=== PATIENT | female | born 1980 | race Caucasian/White ===

== ENCOUNTER 2019-01-25 11:03 | Emergency (ER) | payer BC, SELFPAY ==
[2019-01-25 11:03] VITALS: BP 136/90; PULSE 83; RESP 16; TEMP 36.6; O2SAT 98; BMI 19.3
--- NOTE | 2019-01-25 11:10 | RAD_ITS ---
STUDY: X-RAY CHEST REASON FOR EXAM: Female, 38 years old. Intermittent sharp stabbing sternal chest pain. TECHNIQUE: Single frontal view of the chest. COMPARISON: August 25, 2015 FINDINGS: Stable hyperexpansion. There is no demonstrated pleural abnormality. Normal size heart. Normal mediastinum and josie. Normal visualized pulmonary arteries. Normal visualized aortic arch and descending thoracic aorta. Normal visualized thoracic spine. Normal visualized ribs, clavicles, and shoulders. There is no demonstrated abnormality of the visualized soft tissue structures of the upper abdomen. RAD/Chest 1 View (Portable) IMPRESSION: Stable hyperexpansion with no acute finding. Electronically Signed: Jose C Galindo MD at 11:39 EDT , Service support ,
--- NOTE | 2019-01-25 11:10 | EKG12_ITS ---
Test Reason : CP Blood Pressure : / mmHG Vent. Rate : 067 BPM Atrial Rate : 067 BPM P-R Int : 176 ms QRS Dur : 082 ms QT Int : 356 ms P-R-T Axes : 046 078 042 degrees QTc Int : 376 ms Normal sinus rhythm with sinus arrhythmia Normal ECG Confirmed by DAREK LEVY ([id number]), electronic news gathering editor ZOEY RUSSELL ([id number]) on 01/26/2019 1:40:01 PM Referred By: TREE Confirmed By:DAREK LEVY
[2019-01-25 11:35] LABS: Absolute Lymphocyte Count 2.53 X10^3/ul (0.83-4.51); Absolute Neutrophil Count 4.8 X10^3/uL (2.0-7.7); Basophil# 0.05 X10^3/uL; Basophil% 0.6 % (0-1); Eosinophils% 1.2 % (0-5); Hematocrit 43.2 % (37-47); Hemoglobin 14.3 g/dl (12.0-15.0); Lymphocyte # 2.53 X10^3/ul (4.0); Lymphocyte % 31.5 % (19-41); Mean Corp Hgb Conc 33.1 g/gl (32-36); Mean Corpuscular Hgb 29.2 pg (27.0-32.0); Mean Corpuscular Volume 88.3 fL (81-99); Mean Platelet Vol. 10.5 fl (6.2-12.0); Monocyte% 6.2 % (0-10); Neutrophil # 4.83 X10^3/uL (2.7-7.7); Neutrophil % 60.4 % (47-70); Platelet Count 342 K/mm3 (150-450); RBC Distribution Width CV 13.2 % (11.6-14.6); RBC Distribution Width SD 42.2 fl (35.1-43.9); Red Blood Count 4.89 M/mm3 (4.2-5.4)
[2019-01-25 11:39] LABS: Anion Gap 4 (5-15); BUN 15 mg/dL (7-18); BUN/Creat Ratio 18.5 RATIO (10-20); Calcium,Total 9.2 mg/dL (8.5-10.1); Chloride 106 mmol/L (98-107); Creatinine, Serum 0.81 mg/dL (0.55-1.02); EST Glomerular Filtration Rate 83 mL/min (>60); Est Glom Filt Rate - Afr Amer 101 mL/min (>60); Estimated Creatinine Clearance 76.95 ml/min; Glucose 108 mg/dL (74-106); POSITIVE COUNT NO; POSITIVE DIFFERENTIAL NO; POSITIVE MORPHOLOGY NO; Potassium 3.9 mmol/L (3.5-5.1); Sodium Level 137 mmol/L (136-145)
[2019-01-25] MEDS: Aspirin 81 MG TAB.CHEW 324 MG PO (11:41)
[2019-01-25 11:42] VITALS: O2SAT 99
[2019-01-25 12:04] VITALS: BP 110/59; PULSE 58; RESP 16; O2SAT 99
--- NOTE | 2019-01-25 12:37 | ED.DCSUM_ITS ---
- ER Visit Summary Date of Service: 01/25/19 Chief Complaint: Chest pain History of Present Illness: The patient is a 38 F is here past medical history. She is hysterectomy. States for the last 2 weeks she is having episodes where she had indigestion. She has heartburn. She states that one time it radiated to her left arm. Is not associated with exertion.. She has no dyspnea or nausea. No diaphoresis. Never had underlying cardiac disease. She states she had a negative stress test about 4 years ago. She denies any history of ear PE. No recent travel or surgery. No leg pain or swelling. Pain is not pleuritic. She has no history of hemoptysis. Her dad had an DE she believes before the age of 60 and may be possibly before the age of 55. Family history of clotting disorder or PEs. Physical Examination: Female no acute distress. Currently pain-free symptom- free. Vital signs are 90% on room air Hypoxia. HEENT exam unremarkable. Neck nontender no lymphadenopathy. Lungs clear to auscultation bilaterally. No rales rhonchi or wheezing. Chest wall nontender. Heart regular rate and rhythm no murmur rate about 70. Abdomen is soft and nontender no masses no peritoneal signs. Extremities moves all 4. Equal symmetric radial pulses. Calves are nontender without edema or cords. Neurologically she is awake and alert with no focal motor deficits. Back is unremarkable. Skin is unremarkable. Test Results: CBC normal. Chemistries normal. Troponin normal. EKG sinus rhythm rate of 67 no acute signs of DE or ischemia. Unchanged from prior EKG from 2016. Chest x-ray normal as read by myself the radiologist with normal cardiac silhouette and mediastinum. Emergency Department Course and Treatment: Repeat exam the patient is doing well at 1221. She denies any complaints. Currently she is symptom-free. She has discussed all of her test results and our test being normal. Discussed with her admission with inpatient stress testing versus outpatient. She does not want to be admitted. She is comfortable with outpatient follow-up with her primary care physician and outpatient stress testing. Treatment Plan: Follow-up with primary care physician for consideration of outpatient stress testing. Disposition: Discharge Impression: Acute atypical chest pain of uncertain etiology This note was generated with [employer] dictation software. It may contain incorrect words, spelling, and punctuation that were not noted in review of the chart prior to signing ED Disposition - Plan for ED Patient: Referrals: Misha Longoria III, MD [Primary Care Provider] -
--- NOTE | 2019-01-25 12:40 | ED.DEP ---
ED Disposition - Plan for ED Patient: Disposition: Home or Assisted Living Instructions: CHEST PAIN, Uncertain Cause Referrals: Misha Longoria III, MD [Primary Care Provider] - As soon as possible Additional Instructions: Follow-up your primary care physician to be set up for an outpatient stress test as soon as possible. Return for feeling worse such as increasing pain or shortness of breath.
[2019-01-25 12:45] VITALS: BP 111/72; PULSE 64; RESP 15; O2SAT 99
== END 2019-01-25 12:45 | disposition home or self-care (01) ==
PROVIDERS: Emergency Provider Emergency Medicine; Family Provider Family Medicine; PCP Family Medicine
DX: R07.89 Other chest pain (principal); R12 Heartburn; Z72.0 Tobacco use; Z90.710 Acquired absence of both cervix and uterus
CPT/HCPCS: 71045; 80048; 84484; 85025; 93005; 99285

== ENCOUNTER → 2019-02-10 08:01 | Outpatient (CLI) | payer BC, SELFPAY ==
[2019-01-25 11:03] VITALS: BMI 19.3
--- NOTE | 2019-02-10 08:03 | BI_ITS ---
MAMMOGRAPHY - BILATERAL SCREENING REASON FOR EXAM: Female, 38 years old. Routine annual screening examination. PERTINENT HISTORY: Non-contributory. TECHNIQUE: Digital bilateral breast tiffanie (3D mammographic acquisition) in the CC and MLO projections. 2-D mediolateral oblique (MLO) and craniocaudad (CC) views of both breasts were obtained. CAD: Full Field Digital Mammography with Computer Added Detection was performed. COMPARISON: Comparison is made with prior operative examination dated March 11, 2017. FINDINGS: Breast Composition: The breasts are heterogeneously dense, which may obscure small masses. There are no dominant masses or suspicious calcifications. A tissue clip marker is seen in the inferior medial portion of the left breast and a small well-defined nodule. No other significant abnormalities are identified. There has been no significant change since the prior study. BI/SCREEN MAMM (CAD) W/TIFFANIE BILAT IMPRESSION: Stable bilateral screening mammogram. Yearly follow-up mammogram recommended. (A) ASSESSMENT CATEGORY: BIRADS Category 2: Benign. A letter regarding these results will be sent to the patient by the facility within 30 days. Approximately 10% of breast cancers are not detected by mammography. A normal mammogram should not delay biopsy of a clinically suspicious abnormality. [id number] Electronically Signed: Ortiz Borja, at 9:22 EDT , Service support ,
== END ==
PROVIDERS: Family Provider Family Medicine; PCP Family Medicine; Referring Provider Obstetrics & Gynecology; Visit Provider Obstetrics & Gynecology
DX: Z12.31 Encounter for screening mammogram for malignant neoplasm of breast (principal)
CPT/HCPCS: 77063; 77067

== ENCOUNTER → 2020-02-23 | Outpatient (CLI) | payer BC, SELFPAY | END | disposition home or self-care (01) | LOC: LABSPEC 02-27 07:33 | PROVIDERS: PCP Family Medicine; Referring Provider Nurse Practitioner; Visit Provider Nurse Practitioner | DX: Z20.828 Contact with and (suspected) exposure to other viral communicable diseases (principal) | CPT/HCPCS: 87635; G2023; U0003 ==

== ENCOUNTER → 2020-04-06 11:58 | Outpatient (CLI) | payer BC, SELFPAY ==
--- NOTE | 2020-04-06 12:00 | BI_ITS ---
MAMMOGRAPHY - BILATERAL SCREENING REASON FOR EXAM: Female, 39 years old. Routine annual screening examination. PERTINENT HISTORY: Non-contributory. TECHNIQUE: Digital bilateral breast tiffanie (3D mammographic acquisition) in the CC and MLO projections. 2-D mediolateral oblique (MLO) and craniocaudad (CC) views of both breasts were obtained. CAD: Full Field Digital Mammography with Computer Added Detection was performed. COMPARISON: Comparison is made with prior study dated 02/10/2019. FINDINGS: Breast Composition: The breasts are extremely dense, which lowers the sensitivity of mammography. There are no dominant masses or suspicious calcifications. A tissue clip marker is once again seen in the inferior medial aspect of the left breast. No other significant abnormalities are identified. There has been no significant change since the prior study. BI/SCREEN MAMM (CAD) W/TIFFANIE BILAT IMPRESSION: Stable bilateral screening mammogram. Yearly follow-up mammogram recommended. (A) ASSESSMENT CATEGORY: BIRADS Category 2: Benign. A letter regarding these results will be sent to the patient by the facility within 30 days. Approximately 10% of breast cancers are not detected by mammography. A normal mammogram should not delay biopsy of a clinically suspicious abnormality. [id number] Electronically Signed: Ortiz Borja, at 12:59 EDT , Service support ,
== END ==
PROVIDERS: PCP Family Medicine; Referring Provider Family Medicine; Visit Provider Family Medicine
DX: Z12.31 Encounter for screening mammogram for malignant neoplasm of breast (principal)
CPT/HCPCS: 77063; 77067

== ENCOUNTER 2020-06-22 14:40 | Emergency (ER) | payer BC, SELFPAY ==
[2020-06-22 14:41] VITALS: BP 135/86; PULSE 77; RESP 16; TEMP 36.2; O2SAT 100; BMI 22.4
--- NOTE | 2020-06-22 15:36 | CT_ITS ---
STUDY: CT ABDOMEN AND PELVIS WITHOUT CONTRAST REASON FOR EXAM: Female, 40 years old. RIGHT FLANK PAIN X MONTHS. WORSE LAST COUPLE OF DAYS. RADIATION DOSAGE (If Supplied By Facility): CTDIvol = ( 6.47 ) mGy, DLP = ( 278.65 ) mGycm TECHNIQUE: Transaxial images were obtained from the dome of the diaphragm to the symphysis pubis without oral contrast, and without intravenous contrast. Sagittal and coronal images were reconstructed. Individualized dose optimization techniques were used for this CT. COMPARISON: 11/16/2014 FINDINGS: The visualized lung bases are unremarkable. The visualized portions of the heart are within normal limits. Normal liver. There are surgical clips in the gallbladder fossa consistent with a prior cholecystectomy. Normal spleen. Normal pancreas. Normal bilateral adrenal glands. Normal right kidney. Normal left kidney. Normal visualized stomach. Normal small intestine. Normal colon. There are surgical clips in the region of the appendix consistent with a prior appendectomy. Normal abdominal aorta. Normal inferior vena cava. Normal retroperitoneum. Normal urinary bladder. Normal abdominal wall. Normal osseous structures. CT/Abdomen/Pelvis without Cont IMPRESSION: Normal unenhanced CT of the abdomen and pelvis. No renal or ureteral stone. Electronically Signed: Philippe Santiago MD at 16:51 EST Tel , Service support ,
--- NOTE | 2020-06-22 15:36 | ED.VIS.GI ---
History of Present Illness Chief Complaint: Flank Pain Informant: Patient - Abdominal Pain/Flank Pain Onset: Yesterday Context: Sudden Onset Timing: Continuous Quality: Aching Location: Right Flank - more in back, sometimes feels in side; no abd/groin pain Current Severity: Mild Maximum Severity: Severe Worsened by: Movement Relieved by: - - NSAIDs, last dose 2 hrs ago - Nausea/Vomiting/Emesis GI Symptom: Nausea, Vomiting Onset: Today Quality: Nonbilious Episodes: 1 - Diarrhea/Melena/Hematochezia GI Symptom: Negative for: Diarrhea, Melena, Hematochezia Associated Symptoms: Negative for: Dysuria, Frequency, Hematuria, Urgency Narrative: Also had an episode similar to this about a month ago, but it went away. Came back yesterday and has been significant. Never had this before otherwise. Denies any urinary symptoms. Discomfort is nonpleuritic, she denies any cough or shortness of breath. - Past Medical History (1) History of hidradenitis suppurativa Status: Chronic Comment: right axillary hidradenitis Past Medical History - Allergies and Home Meds Allergies/Adverse Reactions: Allergies ketorolac tromethamine [From Toradol] Allergy (Verified 06/22/20 14:43) Hives tramadol HCl [From Ultram] Allergy (Verified 06/22/20 14:43) Hives naproxen Adverse Reaction (Verified 06/22/20 14:43) Vomiting Primary Care Physician: Misha Longoria III, MD [Primary Care Provider] - Surgical History: appendectomy, cholecystectomy, herniorrhaphy, hysterectomy, - - Right axillary surgery secondary to infection Lives: Spouse/ Significant Other Smoking Status: Current every day smoker Drugs: - - History of oral opioid abuse in the past Review of Systems General: Denies: Chills, Fever, Sweats Eyes: Denies: Visual changes - bilaterally, Diplopia ENT: Denies: Rhinorrhea, Sore throat Cardiovascular: Denies: Chest pain, Palpitations Respiratory: Denies: Dyspnea, Cough, Dyspnea on exertion Gastrointestinal: Reports: Nausea, Vomiting. Denies: Abdominal pain, Diarrhea, Melena, Hematochezia Genitourinary: Denies: Dysuria, Hematuria, Frequency Musculoskeletal: Reports: Back pain. Denies: Myalgias, Extremity Pain Skin: Denies: Rash, Wounds Neurological: Denies: Headache, Weakness, Numbness Physical Exam Vital Signs/Narrative: Vital Signs Temp Pulse Resp BP Pulse Ox 06/22/20 14:41 97.2 F L 77 16 135/86 H 100 Inital Vital Signs reviewed: Yes General: Well nourished, Well developed, No Acute Distress Head: Normocephalic, Atraumatic Eyes: Perrl, EOMI ENT: Moist mucous membranes, No rhinorrhea Neck: Supple, Nontender Cardiovascular: Regular rate, Regular rhythm, No murmurs Respiratory: No distress, CTA bilaterally, Chest nontender Abdomen: Soft, Nontender, Nondistended, Normal bowel sounds Back: Normal Inspection, CVA tenderness - Right only, mild. No rash. Extremities: Nontender, No edema Skin: Normal color, No rash Neurological: Alert, Oriented x3, Cranial nerves II-XII grossly intact, Normal Strength, Normal Sensation, Normal Gait Psychological: Normal affect, Normal Mood Diagnostic/Tx/Re-eval Impressions Abdomen/Pelvis CT 06/22/20 15:36 IMPRESSION: Normal unenhanced CT of the abdomen and pelvis. No renal or ureteral stone. Electronically Signed: Philippe Santiago MD at 16:51 EST Tel , Service support , 06/22/20 15:36 CT Abd [Abdomen/Pelvis without Cont] [CT] Stat Laboratory Results 06/22/20 06/22/20 06/22/20 15:50 15:50 15:50 WBC 8.9 RBC 4.31 Hgb 13.4 Hct 40.1 MCV 93.0 MCH 31.1 MCHC 33.4 RDW Std Deviation 43.3 RDW Coeff of Nya 12.6 Plt Count 343 MPV 10.5 Immature Gran % (Auto) 0.200 Neut % (Auto) 55.7 Lymph % (Auto) 35.3 [place] % (Auto) 7.5 Eos % (Auto) 0.7 Baso % (Auto) 0.6 Absolute Neuts (auto) 5.0 Absolute Lymphs (auto) 3.15 Nucleated RBC % 0 Sodium 137 Potassium 3.4 L Chloride 105 Carbon Dioxide 27.0 Anion Gap 5 BUN 15 Creatinine 0.83 Estim Creat Clear Calc 69.83 Est GFR (MDRD) Af Amer 97 Est GFR (MDRD) Non-Af 80 BUN/Creatinine Ratio 18.1 Glucose 87 Calcium 9.1 Urine Color Yellow Urine Clarity Sl. Cloudy Urine pH 6.0 Ur Specific [place] 1.025 Urine Protein 30 H Urine Glucose (UA) Normal Urine Ketones 50 H Urine Occult Blood 10 H Urine Nitrite Negative Urine Bilirubin Negative Urine Urobilinogen Normal Ur Leukocyte Esterase Negative Urine RBC 0-5 SEEN Urine WBC 0 SEEN Ur Squamous Epith Cells 5-10 SEEN Urine Bacteria 0 SEEN Urine Mucus 0 SEEN - Medical Decision Making Patient declined analgesics, noting that she had an addiction problem in the past and she does not want any narcotics. Her work-up is negative. There is no stone seen. Her kidney function is normal and there is no sign of any infection in her urine. Reassured, it is possible this is simply musculoskeletal pain, but I do not think she needs a contrasted scan at this time since her kidney function is normal. Advised follow-up, and measures of supportive care and continuing with anti-inflammatories as needed, she is comfortable with that plan will follow-up. ED Disposition - Plan for ED Patient: Disposition: Home or Assisted Living Diagnosis: Acute right flank pain Instructions: ED Flank Pain Uncertain Cause Referrals: Misha Longoria III, MD [Primary Care Provider] - 3-5 Days if not improving
[2020-06-22 15:57] LABS: Bacteria 0 SEEN /hpf (None Seen); Mucous, Urine 0 SEEN /hpf (<or=2+); White Blood Cells 0 SEEN /hpf (0-5)
[2020-06-22 16:00] LABS: Color, Urine Yellow (Yellow); Glucose, Dipstick Normal (Normal); Ketone-Dipstick 50 mg/dl (Negative); Leukocyte Esterase-Dipstick Negative /ul (Negative); Nitrite-Dipstick Negative (Negative); Occult Blood-Urine 10 /ul (Negative); Protein-Dipstick 30 mg/dl (Negative); Specific Gravity, Urine 1.025 (1.002-1.030); Urine Bilirubin Dipstick Negative (Negative); Urine Clarity Sl. Cloudy (Clear); Urine Urobilinogen Normal (Normal)
[2020-06-22 16:06] LABS: Absolute Lymphocyte Count 3.15 X10^3/uL (0.83-4.51); Basophil# 0.05 X10^3/uL; Basophil% 0.6 % (0-1); Eosinophil# 0.06 X10^3/uL; Eosinophils% 0.7 % (0-5); Hematocrit 40.1 % (37-47); Hemoglobin 13.4 g/dL (12.0-15.0); Lymphocyte # 3.15 X10^3/ul (4.0); Lymphocyte % 35.3 % (19-41); Mean Corp Hgb Conc 33.4 g/dL (32-36); Mean Corpuscular Hgb 31.1 pg (27.0-32.0); Mean Platelet Vol. 10.5 fl (6.2-12.0); Monocyte# 0.67 X10^3/uL; Monocyte% 7.5 % (0-10); NRBC Flagged by Analyzer 0 % (0-5); Neutrophil # 4.98 X10^3/uL (2.7-7.7); Neutrophil % 55.7 % (47-70); Platelet Count 343 K/mm3 (150-450); RBC Distribution Width CV 12.6 % (11.6-14.6); RBC Distribution Width SD 43.3 fl (35.1-43.9); Red Blood Count 4.31 M/mm3 (4.2-5.4); White Blood Count 8.9 K/mm3 (4.4-11.0)
[2020-06-22 16:14] LABS: Anion Gap 5 (5-15); BUN 15 mg/dL (7-18); BUN/Creat Ratio 18.1 RATIO (10-20); Calcium,Total 9.1 mg/dL (8.5-10.1); Chloride 105 mmol/L (98-107); Creatinine, Serum 0.83 mg/dL (0.55-1.02); EST Glomerular Filtration Rate 80 mL/min (>60); Est Glom Filt Rate - Afr Amer 97 mL/min (>60); Estimated Creatinine Clearance 69.83 ml/min; Glucose 87 mg/dL (74-106); Potassium 3.4 mmol/L (3.5-5.1); Sodium Level 137 mmol/L (136-145)
[2020-06-22 16:20] LABS: Red Blood Cells-Urine 0-5 SEEN /hpf (0-5); Squamous Epithelial Cells - UA 5-10 SEEN /hpf (5-10)
[2020-06-22 17:21] VITALS: PULSE 71; RESP 18
== END 2020-06-22 17:21 | disposition home or self-care (01) ==
PROVIDERS: Emergency Provider Emergency Medicine; PCP Family Medicine
DX: R10.9 Unspecified abdominal pain (principal); F17.200 Nicotine dependence, unspecified, uncomplicated; Z90.710 Acquired absence of both cervix and uterus; Z90.49 Acquired absence of other specified parts of digestive tract
CPT/HCPCS: 74176; 80048; 81001; 85025; 99282; A4216

== ENCOUNTER → 2021-02-15 09:30 | Outpatient (CLI) | payer BC, SELFPAY ==
--- NOTE | 2021-02-15 09:46 | RAD_ITS ---
EXAMINATION: UPPER GI SERIES INDICATION: Female, 40 years . Nausea. Weight loss. FLUOROSCOPY TIME (if supplied): (0:49) minutes/seconds. 10 images were obtained. TECHNIQUE: Radiographic and fluoroscopic images of the distal esophagus, stomach, and proximal small intestine were obtained following the oral ingestion of barium. COMPARISON: None. FINDINGS: There is no evidence for organomegaly, abnormal calcifications, or abnormal bowel gas pattern. The psoas margins and flank stripes are normal. The visualized osseous structures are normal. The mucosa of the esophagus, stomach and duodenum is normal in appearance without evidence for stricture, ulceration, mass or diverticulum. There is no evidence for hiatal hernia or gastroesophageal reflux. Incidental note is made of a small diverticulum in the third portion of the duodenum. RAD/Upper GI Dual Contrast IMPRESSION: 1. Normal upper gastrointestinal study. Small diverticulum in the third portion of the duodenum. Electronically Signed: Ortiz Borja MD at 10:20 EDT , Service support ,
== END ==
PROVIDERS: PCP Family Medicine; Referring Provider Family Medicine; Visit Provider Family Medicine
DX: R10.13 Epigastric pain (principal); R13.10 Dysphagia, unspecified
CPT/HCPCS: 74246

== ENCOUNTER 2021-10-11 12:39 | Outpatient (CLI) | payer BC, SELFPAY ==
--- NOTE | 2021-10-11 12:41 | BI_ITS ---
MAMMOGRAPHY - BILATERAL SCREENING REASON FOR EXAM: Female, 41 years old. Routine annual screening examination. PERTINENT HISTORY: Non-contributory. TECHNIQUE: Digital bilateral breast tiffanie (3D mammographic acquisition) in the CC and MLO projections. 2-D mediolateral oblique (MLO) and craniocaudad (CC) views of both breasts were obtained. CAD: Full Field Digital Mammography with Computer Added Detection was performed. COMPARISON: Comparison is made with prior examination is 04/06/2020 and 02/10/2019. FINDINGS: Breast Composition: The breasts are extremely dense, which lowers the sensitivity of mammography. There is a 4.7 mm x 6.5 mm well-defined nodule in the upper lateral aspect of the right breast. Correlation with ultrasound is recommended. A tissue clip marker is once again seen in the inferior medial aspect of the left breast. No other significant abnormalities are identified. There has been no significant change since the prior study. BI/SCRN MAMM (CAD)W/TIFFANIE BILAT IMPRESSION: 4.7 mm x 6.5 mm well-defined nodule in the right breast as described. Correlation with ultrasound is recommended. ASSESSMENT CATEGORY: BIRADS Category 0: Incomplete. Need additional imaging evaluation. A letter regarding these results will be sent to the patient by the facility within 30 days. Approximately 10% of breast cancers are not detected by mammography. A normal mammogram should not delay biopsy of a clinically suspicious abnormality. [id number] Electronically Signed: Ortiz Borja MD at 14:03 EST ,
== END 2021-10-11 23:59 | disposition home or self-care (01) ==
LOC: OPBI 12:39
PROVIDERS: PCP Family Medicine; Referring Provider Obstetrics & Gynecology; Visit Provider Obstetrics & Gynecology
DX: Z12.31 Encounter for screening mammogram for malignant neoplasm of breast (principal); N63.10 Unspecified lump in the right breast, unspecified quadrant
CPT/HCPCS: 77063; 77067

== ENCOUNTER 2021-10-15 10:47 | Outpatient (CLI) | payer BC, SELFPAY ==
--- NOTE | 2021-10-15 10:52 | US_ITS ---
STUDY: ULTRASOUND BREAST - RIGHT REASON FOR EXAM: Female, 41 years old. Abnormal screening mammogram. TECHNIQUE: Axial and longitudinal images of the RIGHT breast were performed with a high resolution ultrasound transducer. # OF IMAGES: 11 COMPARISON: 10/11/2021 FINDINGS: RIGHT Breast: Heterogeneous background echotexture. At 11 o''clock, 8 cm from nipple, ultrasound confirms a 6 mm oval parallel circumscribed hypoechoic mass with central increased echogenicity most consistent with an intramammary lymph node corresponding to the mass seen on mammography.: US/Breast Limited Unilateral IMPRESSION: Ultrasound confirms a 6 mm intramammary lymph node corresponds to the mass seen on mammography. ASSESSMENT CATEGORY: BIRADS Category 2: Benign. A letter regarding these results will be sent to the patient by the facility within 30 days. Electronically Signed: Philippe Santiago MD at 14:00 EDT ,
== END 2021-10-15 23:59 | disposition home or self-care (01) ==
LOC: OPUS 10:48
PROVIDERS: PCP Family Medicine; Visit Provider Obstetrics & Gynecology
DX: N63.10 Unspecified lump in the right breast, unspecified quadrant (principal); R92.8 Other abnormal and inconclusive findings on diagnostic imaging of breast
CPT/HCPCS: 76642

== ENCOUNTER 2022-03-28 11:11 | Emergency (ER) | payer BC, SELFPAY ==
[2022-03-28 11:12] VITALS: BP 129/91; PULSE 88; RESP 22; TEMP 36.3; O2SAT 100; BMI 19.8
--- NOTE | 2022-03-28 11:22 | EX.ED.UPPERE ---
HPI History of Present Illness Chief Complaint: Bite Detail of Chief Complaint: Dog bite left elbow Informant: patient Occured/Mechanism Comment: Dog bite, 4 puncture wounds left elbow Onset/Context/Timing Context: Sudden Onset Timing: Continuous (Throbbing and increased pain with extension at the left wrist) Quality of Pain: Aching Location: Ulnar volar side left forearm Current Severity: Mild Maximum Severity: Severe Worsened by: Extension at the left wrist Relieved by: Nothing Associated Symptoms Associated Symptoms: Positive for Loss of Funtion (Due to pain); Negative for Parasthesia or Weakness Narrative Narrative: Patient is a 41-year-old [id number] woman who presents because of dog bite which is 4 puncture wounds on the lateral and medial side of the left elbow. There is no pain palpation over the lateral or medial epicondyle. There is equivocal discomfort over the radial head. There is discomfort over the olecranon region. There is no warmth, induration, drainage, lymphangitis. There is no epitrochlear lymphadenopathy. Movement causes her pain. Her tetanus is not up-to-date. Her dogs immunization is up-to-date date. She is not allergic to penicillin. Tetanus Immunization: >10 years Prior similar symptoms: No Recent Illness/Hospitalization: No PFSH PFSH Home Medications estradiol 1 mg tablet 2 mg PO DAILY 05/02/13 [History Last Taken 01/25/19] amoxicillin 875 mg-potassium clavulanate 125 mg tablet 875 mg PO Q12H #6 TABLETS 03/28/22 [Rx Last Taken Unknown] fluoxetine 20 mg capsule 20 mg PO DAILY 03/28/22 [History Last Taken Unknown] Allergy/AdvReac Type Severity Reaction Status Date / Time ketorolac tromethamine Allergy Hives Verified 03/28/22 11:12 [From Toradol] tramadol HCl [From Ultram] Allergy Hives Verified 03/28/22 11:12 naproxen AdvReac Vomiting Verified 03/28/22 11:12 Social History (Updated 03/28/22 @ 11:[address] Lul Dash MD) household members: family Smoking Status: Current every day smoker tobacco type: cigarettes substance use type: does not use ROS ROS ED Constitutional Constitutional ED: Denies chills, fever(s), subjective, sweats or weight loss Musculoskeletal Musculoskeletal: Denies back pain, myalgias or neck pain Integumentary Reports other Details: There are 2 puncture wounds on the lateral side and 2 puncture wounds on the medial side. ; Denies abscess, Abrasions or rash Neurologic Neurologic: Denies paresthesias or weakness Psychiatric Psychiatric: Reports anxiety; Denies depression Hematologic/Lymphatic Hematologic/Lymphatic: Denies easy bleeding, easy bruising or lymphadenopathy EXAM Physical Exam Const Vital Signs: 03/28/22 11:12 Temperature 97.3 F L Temperature Source Temporal Pulse Rate 88 Respiratory Rate 22 H Blood Pressure 129/91 H Blood Pressure Mean 103 Pulse Ox 100 Oxygen Delivery Method Room Air Positive well nourished and well developed General Appearance ED: well developed and NAD; Negative for cyanotic or diaphoretic HEENT Reports moist mucous membranes normocephalic and atraumatic Eyes PERRL and EOMs intact bilaterally Neck full ROM Resp normal respiratory effort and clear to auscultation bilaterally Cardio regular rate, regular rhythm, S1 normal heart sound, S2 normal heart sound and no murmurs Back/Spine no CVA tenderness Neuro oriented x3, CN's II-XII intact bilaterally, moves all extremities, no focal motor deficits and no sensory deficits noted Neuro Narrative: Median, radial and ulnar function intact. Radial pulses palpable. The extensor Indice, extensor commonest and extensor minimized tendon are functionally intact. The extensor carpi radialis and ulnaris are functionally intact. The flexor carpi ulnaris and radialis are functionally intact. Sensorium / Orientation: alert Motor Exam: strength 5/5 throughout Psych Mood & Affect: anxious Skin Skin Narrative: Dog bite Lesions: no lesions Rashes: no rashes MDM MDM MDM Narrative Medical decision making narrative: Patient has puncture wounds due to dog bite. Because she complains of pain with movement and palpation of the olecranon region will obtain x-ray to evaluate for injury to the bone and rule out teeth fragments. If x-ray is unremarkable we will treat with Augmentin 875 mg twice daily for 3 days. Patient declined naproxen because she is allergic. Her allergy is vomiting. Patient was treated with ibuprofen. She does not want opiate analgesia since she has been free of opiates for 5 years. Radiography Diagnostic Testin views of the left elbow was independently reviewed and interpreted by me at 1142 as negative for fracture, foreign body etc. Patient was treated with Augmentin as previously noted. Discharge Plan Triage Chief Complaint: Bite ED Provider: Lul Dash Dx/Rx/DC Orders Clinical Impression: Dog bite of left elbow Instructions: ED Dog Bite Prescriptions: New amoxicillin-pot clavulanate [amoxicillin-pot clavulanate] 875-125 mg tablet 875 mg PO Q12H Qty: 6 0RF No Action estradiol 1 MG tablet 2 mg PO DAILY Label Comments: control fluoxetine 20 mg capsule 20 mg PO DAILY Label Comments: take 1 capsule by mouth once daily Primary Care Provider: Pancho Martell Referrals: Pancho Martell MD [Primary Care Provider] - 2 Days for wound check Disposition Disposition: Home, Self Care
--- NOTE | 2022-03-28 11:30 | RAD_ITS ---
STUDY: X-RAY - LEFT ELBOW REASON FOR EXAM: Female, 41 years old. Injury/Pain -- Dog bite TECHNIQUE: 3 view(s) of the elbow. COMPARISON: None. FINDINGS: Normal visualized humerus, radius and ulna. Normal radiocapitellar and ulnotrochlear articulations. The soft tissue structures are unremarkable. RAD/Elbow min 3 Views IMPRESSION: Normal x-ray examination of the elbow. Electronically Signed: Ortiz Borja MD at 11:57 EDT ,
[2022-03-28] MEDS: Ibuprofen 600 MG Tablet PO (11:36)
[2022-03-28] MEDS: Diphth,Pertuss(Acell),Tet Vac 0.5 ML Vial IM (11:36)
[2022-03-28 11:51] VITALS: RESP 16
[2022-03-28] MEDS: Amox/Clavulanate 875 MG Tablet PO (12:02)
== END 2022-03-28 12:09 | disposition home or self-care (01) ==
PROVIDERS: Emergency Provider Emergency Medicine; PCP Family Medicine; Visit Provider Emergency Medicine
DX: S51.032A Puncture wound without foreign body of left elbow, initial encounter (principal); W54.0XXA Bitten by dog, initial encounter; F17.210 Nicotine dependence, cigarettes, uncomplicated
CPT/HCPCS: 73080; 90471; 90715; 99282

== ENCOUNTER → 2022-12-26 | Outpatient (CLI) | payer BC, SELFPAY ==
--- NOTE | 2022-12-26 10:01 | BI_ITS ---
MAMMOGRAPHY - BILATERAL SCREENING REASON FOR EXAM: Female, 42 years old. Routine annual screening examination. PERTINENT HISTORY: Non-contributory. History of prior left ultrasound-guided breast biopsy. TECHNIQUE: Digital bilateral breast tiffanie (3D mammographic acquisition) in the CC and MLO projections. 2-D mediolateral oblique (MLO) and craniocaudad (CC) views of both breasts were obtained. CAD: Full Field Digital Mammography with Computer Added Detection was performed. COMPARISON: Comparison is made with prior study dated October 11, 2021 and April 06, 2020. FINDINGS: Breast Composition: The breasts are extremely dense, which lowers the sensitivity of mammography. There are no dominant masses or suspicious calcifications. Stable 6.5 mm x 4.5 mm well-defined nodule in the upper lateral aspect of the right breast. This most likely represents a small lymph node. A tissue clip marker is again seen in the inferior medial aspect of the left breast. No other significant abnormalities are identified. There has been no significant change since the prior study. BI/SCRN MAMM (CAD)W/TIFFANIE BILAT IMPRESSION: Stable bilateral screening mammogram. Yearly follow-up mammogram recommended. (A) ASSESSMENT CATEGORY: BIRADS Category 2: Benign. A letter regarding these results will be sent to the patient by the facility within 30 days. Approximately 10% of breast cancers are not detected by mammography. A normal mammogram should not delay biopsy of a clinically suspicious abnormality. [id number] Electronically Signed: Ortiz Borja MD at 12:37 EDT ,
== END | disposition home or self-care (01) ==
LOC: OPBI 09:55
PROVIDERS: PCP Family Medicine; Referring Provider Obstetrics & Gynecology; Visit Provider Obstetrics & Gynecology
DX: Z12.31 Encounter for screening mammogram for malignant neoplasm of breast (principal)
CPT/HCPCS: 77063; 77067

== ENCOUNTER → 2023-09-30 | Outpatient (CLI) | payer BC, SELFPAY ==
--- NOTE | 2023-09-30 11:34 | NEURO ---
NCS and/or EMG Patient Report Ordering Doctor: Fang Giordano DATE OF SERVICE: 09/30/23 Clinical Summary: This is a 43 year old female patient presenting with symptom of right hand pain, numbness, tingling, and weakness. This EMG/NCS was performed to evaluate for right carpal tunnel syndrome. Nerve Conduction Studies Summary: The right median-D2 SNAP distal latency was prolonged with reduced amplitude. The right median-APB CMAP distal latency was prolonged. There was a greater than 10 m/s drop in the right ulnar motor conduction velocity across the elbow. There was a greater than 10% drop in the right ulnar motor amplitude across the elbow, which is indicative of partial motor conduction block. Needle Examination Summary: Needle examination demonstrated a higher proportion of motor unit action potentials with reduced recruitment, increased amplitude, increased duration, and polyphasia in the right abductor pollicis brevis muscle. Impression: There is electrodiagnostic evidence of the following - 1) Severe, right median mononeuropathy at the wrist (carpal tunnel syndrome), with secondary motor fiber axonal loss 2) Mild to moderate, right ulnar mononeuropathy at the elbow, with demyelinating features Multi Select Codes Neurology Neurology Interp Codes: 86795-27 Musc test done w/n test comp (interp) (1) and 76549-77 Nrv cndj tst 5-6 studies (interp)
--- OUTSIDE RECORDS SUMMARY | 2023-09-30 20:14 | XMS RPT_ITS | CCD ---
Author Name Unknown Address [address] [place] [address] Organization [facility] Care Team Providers Care 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 Name Role Phone Davida Hollis MD Primary Care Provider DAVIDA CAPUTO Referring Unavailable DAVIDA HOLLIS Primary Care Unavailable DAVIDA HOLLIS Primary Care Unavailable DAVIDA HOLLIS Primary Care Unavailable DAVIDA HOLLIS Primary Care Unavailable ZABRINA PECK Attending Unavailable KRISTY BATES Referring Unavailable DAVIDA HOLLIS Primary Care Unavailable KRISTY BATES Referring Unavailable DAVIDA HOLLIS Primary Care Unavailable KRISTY BATES Referring Unavailable VARUN HOLLISREY Christiano Primary Care Unavailable KRISTY BATES Attending Unavailable DAVIDA HOLLIS Primary Care Unavailable DAVIDA HOLLIS Referring Unavailable VARUN HOLLISREY A Primary Care Unavailable DAVIDA HOLLIS Attending Unavailable DAVIDA HOLLIS Referring Unavailable VARUN HOLLISREY A Primary Care Unavailable KRISTY BATES Attending Unavailable BUNNY, DAVIDA A Primary Care Unavailable BUNNY DAVIDA A Primary Care Unavailable LAUREN PUTNAM Attending Unavailable BUNNY DAVIDA A Primary Care Unavailable KRISTY BATES Referring Unavailable Allergies Allergy Classification Reported Allergen(s) Allergy Type Date of Onset Reaction(s) Facility (20 sources) Ketorolac; Translations: [KETOROLAC TROMETHAMINE] Drug Allergy 06-16-2014 [facility] Work Phone: (20 sources) Sertraline; Translations: [SERTRALINE] Drug Allergy 04-11-2021 Other: See [facility] Work Phone: (20 sources) traMADol; Translations: [TRAMADOL HCL] Drug Allergy 08-19-2005 [facility] Work Phone: Medications Current Medications Medication Drug Class(es) Dates Sig (Normalized) Sig (Original) fluconazole 150 mg oral tablet (1 source) Azole Antifungal Start: 01-02-2023 End: 01-02-2023 take 1 tablet by mouth once fluconazole (DIFLUCAN) 150 mg tablet Take 1 tablet by mouth one time only for 1 dose. 1 tablet 0 01/02/2023 01/02/2023 Active Completed/Discontinued Medications Medication Drug Class(es) Dates Sig (Normalized) Sig (Original) brompheniramine maleate 0.4 mg/ml / dextromethorphan hydrobromide 2 mg/ml / pseudoephedrine hydrochloride 6 mg/ml oral solution (1 source) alpha-Adrenergic Agonist, Uncompetitive H-jstwjm-S-aspartat e Receptor Antagonist, Sigma-1 Agonist Start: 07-17-2023 take 10 mL by mouth four times daily as needed Brompheniramine -Pseudoeph-DM (BROMFED DM) 2-30-10 mg/5 mL syrup Indications: Viral URI with cough Take 10 mL by mouth four times a day as needed. 118 mL 0 07/17/2023 Active Problems Active Problems Problem Classification Problem Date Documented Da te Episodic/Chronic Anxiety disorders (20 sources) Anxiety; Translations: [Anxiety disorder, unspecified] Onset: 09-20-2013 02-07-2021 Chronic Diverticulosis and diverticulitis (20 sources) Diverticulum of duodenum; Translations: [Diverticulosis of small intestine without perforation or abscess without bleeding] Onset: 04-11-2021 04-11-2021 Chronic Immunizations and screening for infectious disease (1 source) Suspected disease caused by 2019-nCoV; Translations: [Suspected COVID-19 virus infection] Episodic Menopausal disorders (2 sources) Premature menopause; Translations: [Symptomatic premature menopause] Onset: 12-16-2022 Chronic Other gastrointestinal disorders (20 sources) Irritable bowel syndrome with diarrhea; Translations: [Irritable bowel syndrome with diarrhea] Onset: 06-04-2015 02-07-2021 Chronic Other gastrointestinal disorders (1 source) Abdominal bloating; Translations: [Abdominal distension (gaseous)] Episodic Other gastrointestinal disorders (1 source) Diarrhea; Translations: [Diarrhea, unspecified] Episodic Other hereditary and degenerative nervous system conditions (20 sources) Restless legs; Translations: [Restless legs syndrome] Onset: 06-28-2019 02-07-2021 Chronic Other inflammatory condition of skin (20 sources) Psoriasis; Translations: [Other psoriasis] Onset: 09-07-2011 02-07-2021 Chronic Other inflammatory condition of skin (20 sources) Seborrheic psoriasis; Translations: [Other psoriasis] Onset: 09-07-2011 02-07-2021 Chronic Other inflammatory condition of skin (20 sources) Rosacea; Translations: [Rosacea, unspecified] Onset: 11-10-2012 02-07-2021 Chronic Other injuries and conditions due to external causes (1 source) Unspecified injury of right wrist, hand and finger(s), initial encounter; Translations: [Injury of right hand, initial encounter] Onset: 04-30-2023 Episodic Other lower respiratory disease (1 source) Rib pain; Translations: [Pleurodynia] Episodic Other nervous system disorders (20 sources) Mononeuropathy of upper limb; Translations: [Unspecified mononeuropathy of unspecified upper limb] Onset: 03-12-2018 02-07-2021 Chronic Other upper respiratory infections (1 source) Pharyngitis; Translations: [Acute pharyngitis, unspecified] Episodic Residual codes; unclassified (20 sources) Restlessness and agitation; Translations: [Restlessness and agitation] Onset: 04-11-2021 04-11-2021 Chronic Residual codes; unclassified (1 source) Restlessness and agitation; Translations: [Agitation] Onset: 04-11-2021 Chronic Sprains and strains (1 source) Sprain of ankle; Translations: [Sprain of unspecified ligament of left ankle, initial encounter] Episodic Substance-related disorders (20 sources) Smoker; Translations: [Nicotine dependence, unspecified, uncomplicated] Onset: 10-15-2010 02-07-2021 Chronic Viral infection (2 sources) Viral disease; Translations: [Viral infection, unspecified] Episodic Past or Other Problems Problem Classification Problem Date Documented Date Episodic/Chronic Abdominal hernia (20 sources) Umbilical hernia; Translations: [Umbilical hernia without obstruction or gangrene] Onset: 02-06-2016 02-07-2021 Episodic Abdominal pain (20 sources) Epigastric pain; Translations: [Epigastric pain] Onset: 04-11-2021 04-11-2021 Episodic Bacterial infection; unspecified site (20 sources) History of methicillin resistant Staphylococcus aureus infection; Translations: [Personal history of Methicillin resistant Staphylococcus aureus infection] Onset: 03-12-2018 02-07-2021 Episodic Calculus of urinary tract (20 sources) Kidney stone; Translations: [Calculus of kidney] Onset: 11-27-2014 02-07-2021 Episodic Diabetes mellitus without complication (20 sources) Impaired fasting glycemia; Translations: [Impaired fasting glucose] Onset: 10-28-2010 02-07-2021 Episodic Malaise and fatigue (2 sources) Fatigue; Translations: [Other fatigue] Onset: 09-26-2022 Episodic Other lower respiratory disease (1 source) Pleurodynia; Translations: [Rib pain on right side] Onset: 11-06-2022 Episodic Other screening for suspected conditions (not mental disorders or infectious disease) (20 sources) Patient encounter status; Translations: [Encounter for screening for lipoid disorders] Onset: 09-26-2022 09-26-2022 Episodic Other skin disorders (20 sources) Acne vulgaris; Translations: [Acne vulgaris] Onset: 11-10-2012 02-07-2021 Episodic Screening and history of mental health and substance abuse codes (20 sources) H/O: depression; Translations: [Personal history of other mental and behavioral disorders] Onset: 04-02-2006 02-07-2021 Episodic Results Test Name Value Interpretation Reference Range Facil ity Vital Signs Date Time Vital Sign Value Performing Clinician Bill mcclellan 07-14-2023 11:28-0500 Body weight 47.17 kg Lauren Putnam APRN.CNP Work Phone: [facility] 07-14-2023 11:28-0500 Diastolic blood pressure 60 mm[Hg] Lauren Putnam APRN.CNP Work Phone: [facility] 07-14-2023 11:28-0500 Heart rate 72 /min Lauren Putnam APRN.CNP Work Phone: [facility] 07-14-2023 11:28-0500 Respiratory rate 14 /min Lauren Putnam APRN.CNP Work Phone: [facility] 07-14-2023 11:28-0500 Systolic blood pressure 102 mm[Hg] Lauren Fischerariadna JEWELRY MOLD MAKER.TICKET SALES SUPERVISOR Work Phone: [facility] 04-18-2023 12:14-0400 Body temperature 97.81 [degF] Jody Praisler-Wood JEWELRY MOLD MAKER.TICKET SALES SUPERVISOR Work Phone: [facility] 04-18-2023 12:14-0400 Body weight 47.81 kg Jody Praisler-Wood JEWELRY MOLD MAKER.TICKET SALES SUPERVISOR Work Phone: [facility] 04-18-2023 12:14-0400 Diastolic blood pressure 100 mm[Hg] Jody Praisler-Wood JEWELRY MOLD MAKER.TICKET SALES SUPERVISOR Work Phone: [facility] 04-18-2023 12:14-0400 Heart rate 76 /min Jody Praisler-Wood JEWELRY MOLD MAKER.TICKET SALES SUPERVISOR Work Phone: [facility] 04-18-2023 12:14-0400 Respiratory rate 21 /min Jody Praisler-Wood JEWELRY MOLD MAKER.TICKET SALES SUPERVISOR Work Phone: [facility] 04-18-2023 12:14-0400 SaO2% (BldA) [Mass fraction] 98 % Jody Praisler-Wood JEWELRY MOLD MAKER.TICKET SALES SUPERVISOR Work Phone: [facility] 04-18-2023 12:14-0400 Systolic blood pressure 122 mm[Hg] Jody Praisler-Wood JEWELRY MOLD MAKER.TICKET SALES SUPERVISOR Work Phone: [facility] 12-16-2022 08:29-0400 Body height 160 cm Zabrina Peck MD Work Phone: [facility] 12-16-2022 08:29-0400 Body weight 52.62 kg Zabrina Peck MD Work Phone: [facility] 12-16-2022 08:29-0400 Diastolic blood pressure 60 mm[Hg] Zabrina Peck MD Work Phone: [facility] 12-16-2022 08:29-0400 Systolic blood pressure 100 mm[Hg] Zabrina Peck MD Work Phone: [facility] 11-06-2022 10:08-0400 Body height 161.5 cm Kristy Bates PA-C Work Phone: [facility] 11-06-2022 10:08-0400 Body temperature 97.7 [degF] Kristy Bates PA-C Work Phone: [facility] 11-06-2022 10:08-0400 Body weight 54.43 kg Kristygayle Bates PA-C Work Phone: [facility] 11-06-2022 10:08-0400 Diastolic blood pressure 70 mm[Hg] Kristygayle Bates PA-C Work Phone: [facility] 11-06-2022 10:08-0400 Heart rate 68 /min Kristygayle Bates PA-C Work Phone: [facility] 11-06-2022 10:08-0400 Respiratory rate 14 /min Kristy Bates PA-C Work Phone: [facility] 11-06-2022 10:08-0400 Systolic blood pressure 118 mm[Hg] Kristy Bates PA-C Work Phone: [facility] 09-26-2022 09:48-0500 Body temperature 97.5 [degF] Davida Hollis MD Work Phone: [facility] 09-26-2022 09:48-0500 Body weight 53.07 kg Davida Hollis MD Work Phone: [facility] 09-26-2022 09:48-0500 Diastolic blood pressure 78 mm[Hg] Davida Hollis MD Work Phone: [facility] 09-26-2022 09:48-0500 Heart rate 68 /min Davida Hollis MD Work Phone: [facility] 09-26-2022 09:48-0500 Respiratory rate 16 /min Davida Hollis MD Work Phone: [facility] 09-26-2022 09:48-0500 Systolic blood pressure 120 mm[Hg] Davida Hollis MD Work Phone: [facility] 08-11-2022 08:48-0500 Body weight 52.62 kg Kristy SWEENEY-C Work Phone: [facility] 08-11-2022 08:48-0500 Diastolic blood pressure 80 mm[Hg] Kristy Bates PA-C Work Phone: [facility] 08-11-2022 08:48-0500 Heart rate 88 /min Kristy Bates PA-C Work Phone: [facility] 08-11-2022 08:48-0500 Respiratory rate 16 /min Kristy Bates PA-C Work Phone: [facility] 08-11-2022 08:48-0500 Systolic blood pressure 122 mm[Hg] Kristy Bates PA-C Work Phone: [facility] 03-14-2022 12:45-0400 Body weight 51.26 kg Davida Hollis MD Work Phone: [facility] 03-14-2022 12:45-0400 Diastolic blood pressure 64 mm[Hg] Davida Hollis MD Work Phone: [facility] 03-14-2022 12:45-0400 Heart rate 68 /min Davida Hollis MD Work Phone: [facility] 03-14-2022 12:45-0400 Systolic blood pressure 108 mm[Hg] Davida Hollis MD Work Phone: [facility] Encounters Encounter Date Encounter Type Care Provider Facility Start: 07-18-2023 Telephone encounter Yesy R Ath y PA-C Work Phone: [facility] Procedures Date Procedure Procedure Detail Performing Clinician Start: 12-26-2022 Mammography Zabrina malcolm MD Work Phone: Start: 11-13-2022 Us abdominal real ti me w/image limited Kristy Bates PA-C Work Phone: Start: 09-26-2022 COVID WITH FLUA+B, ROUTINE Davida Hollis MD Work Phone: Start: 09-26-2022 STREP A MOLECULAR (POC) Davida Hollis MD Work Phone: Start: 09-26-2022 Lipid 1996 panel - S marco a or Plasma Jody Mauricio APRN.TICKET SALES SUPERVISOR Work Phone: Start: 10-11-2021 Mammography Davida melo MD Work Phone: Start: 06-06-2021 Colonoscopy Davida melo MD Work Phone: Plan of Treatment Date Care Activity Detail Author Start: 03-28-2032 Urine microalbumin profile [facility] Start: 06-06-2031 Colonoscopy COLONOSCOPY [facility] Start: 06-06-2031 COLORECTAL CANCER SCREENING COLORECTAL CANCER SCREENING [facility] Start: 06-06-2031 Screening for malign ant neoplasm of colon [facility] Start: 09-26-2027 Lipid 1996 panel - S marco a or Plasma Lipid Screening [facility] Start: 09-26-2027 Lipid panel Lipid Screening [facility] Start: 11-06-2025 Diabetes Screening Diabetes Screenin g [facility] Start: 01-31-2024 Influenza vaccination Influenza Vacc ine (#1) [facility] Immunizations Immunization Date Immunization Notes Care Provider Fa randyty 03-28-2022 tetanus toxoid, redu gilberto diphtheria toxoid, and acellular pertussis vaccine, adsorbed Kristy Bates PA-C Work Phone: [facility] 07-17-2016 influenza, injectabl e, quadrivalent, contains preservative Davida Hollis MD Work Phone: [facility] 07-17-2016 influenza virus vaccine, unspecified formulation Jody Mauricio APRN.TICKET SALES SUPERVISOR Work Phone: [facility] 06-08-2015 influenza, seasonal, injectable Davida Hollis MD Work Phone: [facility] 07-10-2014 influenza, seasonal, injectable Davida Hollis MD Work Phone: [facility] 04-28-2012 influenza virus vaccine, unspecified formulation Davida Hollis MD Work Phone: [facility] Work Phone: 01-27-2012 tetanus toxoid, redu gilberto diphtheria toxoid, and acellular pertussis vaccine, adsorbed Davida Hollis MD Work Phone: [facility] 05-02-2011 influenza virus vaccine, unspecified formulation Davida Hollis MD Work Phone: [facility] 05-30-2010 influenza virus vaccine, unspecified formulation Davida Hollis MD Work Phone: [facility] Work Phone: 05-03-2009 influenza virus vaccine, unspecified formulation Davida Hollis MD Work Phone: [facility] Work Phone: 05-29-2008 influenza virus vaccine, live, attenuated, for intranasal use Davida Hollis MD Work Phone: [facility] Payers Date Payer Category Payer Unknown [facility]O DAVILA [facility] [id number] 2020-Present [phone] [address] [place] [address] PPO [id number] 2020 Unknown YEYO DAVILA PPO [id number] 2020-Present [phone] [address] [place] [address] PPO [id number] 2020 Unknown [id number] Social History Date Type Detail Facility Start: 11-28-2015 End: 03-14-2022 Tobacco smoking status NHIS Smokes tobacco daily [facility] End: 09-03-2021 History of tobacco use Cigarette Smoker [facility] Start: 11-28-2015 End: 12-16-2022 Cigarettes smoked current (pack per day) - Reported 0.25 [facility] Start: 11-28-2015 End: 09-26-2022 Tobacco use and exposure Smokeless tobacco non-user [facility] Start: 11-12-2021 End: 09-26-2022 Alcohol intake Lifetime non-drinker (finding) [facility] Start: 06-06-2021 History SDOH Alcohol Frequency 1 [facility] Start: 02-27-2014 History SDOH Alcohol Comment rare [facility] Start: 1980 Sex Assigned At Not on file [facility] Start: 03-04-2022 End: 03-14-2022 Exposure to SARS-CoV-2 (event) Not sure [facility] Start: 09-26-2022 Tobacco smoking stat us NHIS Ex-smoker [facility] End: 09-03-2021 History of tobacco use Current smoker [facility] Start: 11-06-2022 End: 07-17-2023 Alcohol intake Ex-drinker (finding) [facility] Start: 12-16-2022 End: 04-18-2023 Tobacco use panel [facility] Adult Depression Scr eening Assessment 0 [facility] Clinical Notes 12-11-2016 to 07-18-2023 Telephone Encounter - Hilda Liao LPN - 07/18/2023 8:46 AM ESTTelephone Encounter - Yesy Rocha PA-C - 07/18/2023 8:18 AM Lauren Chambers APRN.TICKET SALES SUPERVISOR - 07/14/2023 11:32 AM EST Note Date & Type Note Facility 07-18-2023 Miscellaneous Notes Patient notified. Verbalized understanding. Please call and let patient know she is positive for covid19. Recommend quarantine for 5 days from first day of symptoms and a mask for 5 days following quarantine. If symptoms worsen be seen in the ER or follow up with pcp. documented in this encounter [facility] 07-17-2023 Note HNO ID: [id number] Author: Jody Mauricio APRN.TICKET SALES SUPERVISOR Service: ? Author Type: Nurse Practitioner Type: Progress Notes Filed: 07/17/2023 8:43 AM Note Text: Subjective HPI Antoinette Damon is a 43 year old female who presents with a cough, nasal congestion, fever and feeling short of breath since yesterday. Frequent coughing I feel it in my chest . Her mom got sick at the same time with same symptoms. Has taken tylenol and OTC cold medicine. No known sick contacts. Review of Systems Constitutional: Positive for fever. Negative for malaise/fatigue. HENT: Positive for congestion. Negative for ear pain and sore throat. Respiratory: Positive for cough and shortness of breath. Negative for sputum production and wheezing. Cardiovascular: Negative for chest pain. Musculoskeletal: Negative for myalgias. BP 131/89 Pulse 108 Temp 36.9 ?C (98.5 ?F) Resp 26 Wt 48.1 kg (106 lb) SpO2 100% BMI 18.78 kg/m? PAST MEDICAL HISTORY Diagnosis Date Agoraphobia 07/31/2014 Anxiety 09/20/2013 Bipolar I disorder, most recent episode (or current) depressed, moderate 2005 this was diagnosed when she was on prescription RX-no current care Diarrhea History of depression 04/02/2006 History of drug abuse ([facility]) 02/06/2016 Abused narcotic pills. Drug free since 02/07/2017, Did Rehab in [place] Impaired fasting glucose 10/28/2010 Incisional hernia 03/07/2016 Surgery, other elective 06/07/2015 right axilla excision - see scanned documents Tobacco abuse 10/15/2010 PAST SURGICAL HISTORY Procedure Laterality Date ABDOMINAL SURGERY HX APPENDECTOMY COLONOSCOPY FLX DX W/COLLJ SPEC WHEN PFRMD 10/21/2012 Colonoscopy COLONOSCOPY FLX DX W/COLLJ SPEC WHEN PFRMD 06/06/2021 ESOPHAGOGASTRODUODENOSCOPY TRANSORAL DIAGNOSTIC 01/2003 EGD ESOPHAGOGASTRODUODENOSCOPY TRANSORAL DIAGNOSTIC 10/21/2012 EGD HERNIA REPAIR HX 2006 Umbilicalx2 IMPLANT MESH OPN HERNIA RPR/DEBRIDEMENT CLOSURE 03/07/2016 INCISION AND DRAINAGE ABSCESS SIMPLE/SINGLE 01/13,06/17 RIGHT AXILLA LAPAROSCOPY SURG CHOLECYSTECTOMY Cholecystectomy, lap PAST SURGICAL HISTORY OF franko john tubes removed REPAIR INCISIONAL HERNIA 03/07/2016 at umbilicus VAGINAL HYSTERECTOMY UTERUS 250 GM/< 01/2006 Hysterectomy, vaginal ALLERGIES Toradol [Ketorolac Tromethamine], Ultram [Tramadol Hcl], and Zoloft [Sertraline] MEDICATIONS FLUoxetine (PROZAC) 10 mg capsule Take 1 capsule by mouth once daily. Take with prozac 20mg for a total of 30mg daily. FLUoxetine (PROZAC) 20 mg capsule Take 1 capsule by mouth once daily. estradiol (ESTRACE) 2 mg tablet Take 1 tablet by mouth once daily. calcipotriene (DOVONEX) 0.005 % oint APPLY TO THE ELBOWS AND KNEES TWICE A DAY NEEDED FOR FLARING predniSONE (DELTASONE) 20 mg tablet Take 2 tablets by mouth once daily for 5 days. Take daily with food. Ukxabqskygqutlu-Bbunbdkby-UV (BROMFED DM) 2-30-10 mg/5 mL syrup Take 10 mL by mouth four times a day as needed. FAMILY HISTORY Problem Relation Age of Onset None Mother Diabetes Father Headache Father Stroke Father Ischemic Heart Disease Father Lipids Father Hypertension Father other (epilepsy) Sister Diabetes Sister other (bladder cancer) Maternal Grandmother Diabetes Maternal Grandfather Diabetes Maternal Uncle Social History Tobacco Use Smoking status: Former Packs/day: 0.25 Years: 16.00 Additional pack years: 0.00 Total pack years: 4.00 Types: Cigarettes Quit date: 09/03/2021 Years since quittin.8 Smokeless tobacco: Never Vaping Use Vaping Use: Never used Substance Use Topics Alcohol use: Not Currently Comment: rare Drug use: No Comment: recovering prescription drug abuse- Vicodin, Percocet Objective Physical Exam Vitals and nursing note reviewed. Cardiovascular: Rate and Rhythm: Normal rate and regular rhythm. Heart sounds: Normal heart sounds. Pulmonary: Effort: Pulmonary effort is normal. No respiratory distress. Breath sounds: Normal breath sounds. No wheezing or rales. Skin: General: Skin is warm and dry. Findings: No erythema or rash. Neurological: Mental Status: She is alert. Psychiatric: Mood and Affect: Mood is anxious. ASSESSMENT/PLAN: 1. Viral URI with cough - ICD9: 465.9, ICD10: J06.9 - Discussed viral etiology and rationale for treatment. - Symptomatic treatment with prn analgesia - Supportive care with fluids and rest - COVID AND INFLUENZA A/B AND RSV NAAT, ROUTINE - PREDNISONE 20 MG TABLET - [id number] M 2 MG-30 MG-10 MG/5 ML ORAL SYRUP - Follow-up with your PCP in 3-5 days if symptoms have not improved or sooner if symptoms worsen - Discussed red flags and need for immediate medical evaluation if any occur. - Discussed supportive care treatment with fluids, rest and analgesia. - Discussed expected course of illness Jody Mauricio APRN.CNP [facility] 07-14-2023 Note HNO ID: [id number] Author: Lauren Putnam APRN.GLYNN Service: ? Author Type: Nurse Practitioner Type: Progress Notes Filed: 07/14/2023 11:40 AM Note Text: Chief Complaint Patient presents with: 6 Month Exam HPI Antoinette L Shankar is a 43 year old female who presents here today for Above Complaints.. Patient presents for routine follow up. Patient feels more anxious and agitated and is requesting to increase her prozac. Patient is also seeing hormone specialist at main campus due to continued difficulty with menopausal symptoms. Past medical history, appointments, medications, allergies reviewed. Previous Medical History PAST MEDICAL HISTORY Diagnosis Date Agoraphobia 07/31/2014 Anxiety 09/20/2013 Bipolar I disorder, most recent episode (or current) depressed, moderate 2005 this was diagnosed when she was on prescription RX-no current care Diarrhea History of depression 04/02/2006 History of drug abuse (HCC) 02/06/2016 Abused narcotic pills. Drug free since 02/07/2017, Did Rehab in [place] Impaired fasting glucose 10/28/2010 Incisional hernia 03/07/2016 Surgery, other elective 06/07/2015 right axilla excision - see scanned documents Tobacco abuse 10/15/2010 Previous Surgical History PAST SURGICAL HISTORY Procedure Laterality Date ABDOMINAL SURGERY HX APPENDECTOMY COLONOSCOPY FLX DX W/COLLJ SPEC WHEN PFRMD 10/21/2012 Colonoscopy COLONOSCOPY FLX DX W/COLLJ SPEC WHEN PFRMD 06/06/2021 ESOPHAGOGASTRODUODENOSCOPY TRANSORAL DIAGNOSTIC 01/2003 EGD ESOPHAGOGASTRODUODENOSCOPY TRANSORAL DIAGNOSTIC 10/21/2012 EGD HERNIA REPAIR HX 2005 Umbilicalx2 IMPLANT MESH OPN HERNIA RPR/DEBRIDEMENT CLOSURE 03/07/2016 INCISION AND DRAINAGE ABSCESS SIMPLE/SINGLE 01/13,06/17 RIGHT AXILLA LAPAROSCOPY SURG CHOLECYSTECTOMY Cholecystectomy, lap PAST SURGICAL HISTORY OF franko john tubes removed REPAIR INCISIONAL HERNIA 03/07/2016 at umbilicus VAGINAL HYSTERECTOMY UTERUS 250 GM/< 01/2006 Hysterectomy, vaginal Family History FAMILY HISTORY Problem Relation Age of Onset None Mother Diabetes Father Headache Father Stroke Father Ischemic Heart Disease Father Lipids Father Hypertension Father other (epilepsy) Sister Diabetes Sister other (bladder cancer) Maternal Grandmother Diabetes Maternal Grandfather Diabetes Maternal Uncle Patient Allergies ALLERGIES Allergen Reactions Toradol [Ketorolac * Hives Ultram [Tramadol Hc* Hives opioid abuse Zoloft [Sertraline] Other: See Comments Made her more jittery Current Medications Current Outpatient Medications on File Prior to Visit Medication Sig FLUoxetine (PROZAC) 20 mg capsule Take 1 capsule by mouth once daily. estradiol (ESTRACE) 2 mg tablet Take 1 tablet by mouth once daily. methylPREDNISolone (MEDROL DOSE-PACK) 4 mg Dose-Pack use as directed FOLLOW DIRECTIONS ON BACK OF FOIL PACK (Patient not taking: Reported on 04/30/2023) calcipotriene (DOVONEX) 0.005 % oint APPLY TO THE ELBOWS AND KNEES TWICE A DAY NEEDED FOR FLARING No current facility-administered medications on file prior to visit. Social History Social History Tobacco Use Smoking status: Former Packs/day: 0.25 Years: 16.00 Additional pack years: 0.00 Total pack years: 4.00 Types: Cigarettes Quit date: 09/03/2021 Years since quittin.8 Smokeless tobacco: Never Vaping Use Vaping Use: Never used Substance Use Topics Alcohol use: Not Currently Comment: rare Drug use: No Comment: recovering prescription drug abuse- Vicodin, Percocet Review of Symptoms REVIEW OF SYSTEMS SEE HPI EXAM: BP 102/60 Pulse 72 Resp 14 Wt 47.2 kg (104 lb) BMI 18.42 kg/m? General Appearance: Well appearing, alert, in no acute distress, well-hydrated, well nourished.. Lungs: Lungs clear to auscultation. No wheezing, rhonchi, rales.. Heart: RRR without murmur, gallop, or rubs. No ectopy. Health Maintenance List Depression Assessment Never done Hepatitis B Vaccine(1 of 3 - 3-dose series) due on 11/07/2023 Hepatitis C Screening due on 11/07/2023 Influenza Vaccine(1) due on 01/31/2024 Mammogram Screening due on 12/27/2023 Diabetes Screening due on 11/06/2025 Lipid Screening due on 09/26/2027 Colorectal Cancer Screening due on 06/06/2031 DTaP,Tdap,Td Vaccine(3 - Td or Tdap) due on 03/28/2032 HIV Screening Completed HPV Vaccine Aged Out Pap Testing Discontinued HPV Testing Discontinued Covid-19 Vaccine Discontinued ASSESSMENT/PLAN: 1. Agitation - ICD9: 307.9, ICD10: R45.1 (primary diagnosis) - FLUOXETINE 10 MG CAPSULE 2. Anxiety - ICD9: 300.00, ICD10: F41.9 - FLUOXETINE 10 MG CAPSULE Lauren Putnam APRN.[facility] 07-14-2023 History of Present illness Narrative Chief Complaint Patient presents with: 6 Month Exam HPI Antoinette L Shankar is a 43 year old female who presents here today for Above Complaints.. Patient presents for routine follow up. Patient feels more anxious and agitated and is requesting to increase her prozac. Patient is also seeing hormone specialist at main campus due to continued difficulty with menopausal symptoms. Past medical history, appointments, medications, allergies reviewed. Previous Medical History PAST MEDICAL HISTORY Diagnosis Date Agoraphobia 07/31/2014 Anxiety 09/20/2013 Bipolar I disorder, most recent episode (or current) depressed, moderate 2005 this was diagnosed when she was on prescription RX-no current care Diarrhea History of depression 04/02/2006 History of drug abuse ([facility]) 02/06/2016 Abused narcotic pills. Drug free since 02/07/2017, Did Rehab in [place] Impaired fasting glucose 10/28/2010 Incisional hernia 03/07/2016 Surgery, other elective 06/07/2015 right axilla excision - see scanned documents Tobacco abuse 10/15/2010 Previous Surgical History PAST SURGICAL HISTORY Procedure Laterality Date ABDOMINAL SURGERY HX APPENDECTOMY COLONOSCOPY FLX DX W/COLLJ SPEC WHEN PFRMD 10/21/2012 Colonoscopy COLONOSCOPY FLX DX W/COLLJ SPEC WHEN PFRMD 06/06/2021 ESOPHAGOGASTRODUODENOSCOPY TRANSORAL DIAGNOSTIC 01/2003 EGD ESOPHAGOGASTRODUODENOSCOPY TRANSORAL DIAGNOSTIC 10/21/2012 EGD HERNIA REPAIR HX 2005 Umbilicalx2 IMPLANT MESH OPN HERNIA RPR/DEBRIDEMENT CLOSURE 03/07/2016 INCISION & DRAINAGE ABSCESS SIMPLE/SINGLE 01/13,06/17 RIGHT AXILLA LAPAROSCOPY SURG CHOLECYSTECTOMY Cholecystectomy, lap PAST SURGICAL HISTORY OF franko john tubes removed REPAIR INCISIONAL HERNIA 03/07/2016 at umbilicus VAGINAL HYSTERECTOMY UTERUS 250 GM/< 01/2006 Hysterectomy, vaginal Family History FAMILY HISTORY Problem Relation Age of Onset None Mother Diabetes Father Headache Father Stroke Father Ischemic Heart Disease Father Lipids Father Hypertension Father other (epilepsy) Sister Diabetes Sister other (bladder cancer) Maternal Grandmother Diabetes Maternal Grandfather Diabetes Maternal Uncle Patient Allergies ALLERGIES Allergen Reactions Toradol [Ketorolac * Hives Ultram [Tramadol Hc* Hives opioid abuse Zoloft [Sertraline] Other: See Comments Made her more jittery Current Medications Current Outpatient Medications on File Prior to Visit Medication Sig FLUoxetine (PROZAC) 20 mg capsule Take 1 capsule by mouth once daily. estradiol (ESTRACE) 2 mg tablet Take 1 tablet by mouth once daily. methylPREDNISolone (MEDROL DOSE-PACK) 4 mg Dose-Pack use as directed FOLLOW DIRECTIONS ON BACK OF FOIL PACK (Patient not taking: Reported on 04/30/2023) calcipotriene (DOVONEX) 0.005 % oint APPLY TO THE ELBOWS AND KNEES TWICE A DAY NEEDED FOR FLARING No current facility-administered medications on file prior to visit. Social History Social History Tobacco Use Smoking status: Former Packs/day: 0.25 Years: 16.00 Additional pack years: 0.00 Total pack years: 4.00 Types: Cigarettes Quit date: 09/03/2021 Years since quittin.8 Smokeless tobacco: Never Vaping Use Vaping Use: Never used Substance Use Topics Alcohol use: Not Currently Comment: rare Drug use: No Comment: recovering prescription drug abuse- Vicodin, Percocet Review of Symptoms REVIEW OF SYSTEMS SEE HPI EXAM: BP 102/60 Pulse 72 Resp 14 Wt 47.2 kg (104 lb) BMI 18.42 kg/m General Appearance: Well appearing, alert, in no acute distress, well-hydrated, well nourished.. Lungs: Lungs clear to auscultation. No wheezing, rhonchi, rales.. Heart: RRR without murmur, gallop, or rubs. No ectopy. Health Maintenance List Depression Assessment Never done Hepatitis B Vaccine(1 of 3 - 3-dose series) due on 11/07/2023 Hepatitis C Screening due on 11/07/2023 Influenza Vaccine(1) due on 01/31/2024 Mammogram Screening due on 12/27/2023 Diabetes Screening due on 11/06/2025 Lipid Screening due on 09/26/2027 Colorectal Cancer Screening due on 06/06/2031 DTaP,Tdap,Td Vaccine(3 - Td or Tdap) due on 03/28/2032 HIV Screening Completed HPV Vaccine Aged Out Pap Testing Discontinued HPV Testing Discontinued Covid-19 Vaccine Discontinued ASSESSMENT/PLAN: 1. Agitation - ICD9: 307.9, ICD10: R45.1 (primary diagnosis) - FLUOXETINE 10 MG CAPSULE 2. Anxiety - ICD9: 300.00, ICD10: F41.9 - FLUOXETINE 10 MG CAPSULE Lauren Putnam APRN.[employer] documented in this encounter [facility] 06-01-2023 Miscellaneous Notes Last office visit: 11/06/22 F/u scheduled: 06/09/23 Sugar Hoff Ma Patient has been identified by name and date of : Yes Requested Prescriptions Pending Prescriptions Disp Refills FLUoxetine (PROZAC) 20 mg capsule 30 capsule 5 Sig: Take 1 capsule by mouth once daily. RX INSTRUCTIONS: please send today, patient is out of this medication Patient aware RX will be sent to pharmacy. No need to notify patient. Margi Tao documented in this encounter [facility] 04-30-2023 Note HNO ID: [id number] Author: Lauren Rasmussen RT(R) Service: ? Author Type: Technologist Type: Progress Notes Filed: 04/30/2023 11:31 AM Note Text: Radiology Service Progress Note PATIENT NAME: Antoinette Damon DATE OF SERVICE: April 30, 2023 TIME: 11:31 AM PATIENT IDENTITY VERIFICATION COMPLETED USING TWO (2) IDENTIFIERS: Name and Date of confirmed by patient verbally. FALL SCREENING: Has the patient had 2 falls in the last year or 1 fall with injury or currently using an Ambulatory Assistive Device (Walker, Cane, Wheelchair, Crutches, etc.)? No PATIENT GENDER DATA: Female. status: : No status: NO. PATIENT RELEVANT IMPLANT DATA REVIEWED: Not Applicable RADIOLOGY DEPARTMENT: General X-ray: Exam(s) Completed: Upper Extremity X-Ray(s): Hand, right PERIPHERAL IV DATA: Not applicable SIGNED BY: Lauren Rasmussen RT(R) April 30, 2023 11:31 AM [facility] 04-30-2023 Note HNO ID: [id number] Author: Davida Caputo APRN.[employer] Service: ? Author Type: Nurse Practitioner Type: Progress Notes Filed: 04/30/2023 12:17 PM Note Text: Subjective HPI Nontoxic-appearing female presents urgent care chief plaint right hand finger discomfort. Duration of symptoms today. Associated symptoms right hand and finger pain. Patient states she punched the wall due to anger. Presents today for evaluation. Denies any other injuries. No loss of sensation. Mild decreased range of motion to the fourth and fifth digits due to discomfort. Denies history of fractures or surgeries to this hand. Past medical history prescription medication use allergies reviewed. .Patient presents with: Finger Injury: R hand fifth finger injury x1 hour PAST MEDICAL HISTORY Diagnosis Date Agoraphobia 07/31/2014 Anxiety 09/20/2013 Bipolar I disorder, most recent episode (or current) depressed, moderate 2005 this was diagnosed when she was on prescription RX-no current care Diarrhea History of depression 04/02/2006 History of drug abuse (HCC) 02/06/2016 Abused narcotic pills. Drug free since 02/07/2017, Did Rehab in [place] Impaired fasting glucose 10/28/2010 Incisional hernia 03/07/2016 Surgery, other elective 06/07/2015 right axilla excision - see scanned documents Tobacco abuse 10/15/2010 PAST SURGICAL HISTORY Procedure Laterality Date ABDOMINAL SURGERY HX APPENDECTOMY COLONOSCOPY FLX DX W/COLLJ SPEC WHEN PFRMD 10/21/2012 Colonoscopy COLONOSCOPY FLX DX W/COLLJ SPEC WHEN PFRMD 06/06/2021 ESOPHAGOGASTRODUODENOSCOPY TRANSORAL DIAGNOSTIC 01/2003 EGD ESOPHAGOGASTRODUODENOSCOPY TRANSORAL DIAGNOSTIC 10/21/2012 EGD HERNIA REPAIR HX 2006 Umbilicalx2 IMPLANT MESH OPN HERNIA RPR/DEBRIDEMENT CLOSURE 03/07/2016 INCISION AND DRAINAGE ABSCESS SIMPLE/SINGLE 01/13,06/17 RIGHT AXILLA LAPAROSCOPY SURG CHOLECYSTECTOMY Cholecystectomy, lap PAST SURGICAL HISTORY OF franko john tubes removed REPAIR INCISIONAL HERNIA 03/07/2016 at umbilicus VAGINAL HYSTERECTOMY UTERUS 250 GM/< 01/2006 Hysterectomy, vaginal ALLERGIES Toradol [Ketorolac Tromethamine], Ultram [Tramadol Hcl], and Zoloft [Sertraline] MEDICATIONS estradiol (ESTRACE) 2 mg tablet Take 1 tablet by mouth once daily. methylPREDNISolone (MEDROL DOSE-PACK) 4 mg Dose-Pack use as directed FOLLOW DIRECTIONS ON BACK OF FOIL PACK (Patient not taking: Reported on 04/30/2023) calcipotriene (DOVONEX) 0.005 % oint APPLY TO THE ELBOWS AND KNEES TWICE A DAY NEEDED FOR FLARING FLUoxetine (PROZAC) 20 mg capsule Take 1 capsule by mouth once daily. FAMILY HISTORY Problem Relation Age of Onset None Mother Diabetes Father Headache Father Stroke Father Ischemic Heart Disease Father Lipids Father Hypertension Father other (epilepsy) Sister Diabetes Sister other (bladder cancer) Maternal Grandmother Diabetes Maternal Grandfather Diabetes Maternal Uncle Social History Tobacco Use Smoking status: Former Packs/day: 0.25 Years: 16.00 Additional pack years: 0.00 Total pack years: 4.00 Types: Cigarettes Quit date: 09/03/2021 Years since quittin.6 Smokeless tobacco: Never Vaping Use Vaping Use: Never used Substance Use Topics Alcohol use: Not Currently Comment: rare Drug use: No Comment: recovering prescription drug abuse- Vicodin, Percocet BP 130/82 Pulse 89 Temp 36.6 ?C (97.8 ?F) Resp 18 Wt 49.4 kg (108 lb 12.8 oz) SpO2 100% BMI 19.27 kg/m? Review of Systems Constitutional: Negative for chills, fever and malaise/fatigue. HENT: Negative for congestion, ear discharge, ear pain, sinus pain and sore throat. Eyes: Negative for blurred vision, pain, discharge and redness. Respiratory: Negative for cough, hemoptysis, sputum production, shortness of breath, wheezing and stridor. Cardiovascular: Negative for chest pain. Gastrointestinal: Negative for abdominal pain, diarrhea, nausea and vomiting. Musculoskeletal: Positive for joint pain. Negative for myalgias. Skin: Negative for itching and rash. Neurological: Negative for dizziness and headaches. Objective Physical Exam Constitutional: General: She is not in acute distress. Appearance: She is not toxic-appearing. HENT: Head: Normocephalic. Nose: Nose normal. Eyes: Pupils: Pupils are equal, round, and reactive to light. Cardiovascular: Rate and Rhythm: Normal rate. Pulmonary: Effort: Pulmonary effort is normal. No respiratory distress. Musculoskeletal: Right wrist: Normal. Right hand: Tenderness present. No swelling. Normal strength. Normal sensation. Normal capillary refill. Normal pulse. Cervical back: Normal range of motion. Comments: Neurovascular intact. No deformities. Skin: General: Skin is warm and dry. Neurological: General: No focal deficit present. Mental Status: She is alert. ASSESSMENT/PLAN: 1. Injury of right hand, initial encounter - ICD9: 959.4, ICD10: S69.91XA (primary d (more content not included)... [facility] 04-18-2023 Note HNO ID: [id number] Author: Jody Mauricio APRN.[employer] Service: ? Author Type: Nurse Practitioner Type: Progress Notes Filed: 04/18/2023 12:47 PM Note Text: Subjective HPI Antoinette Damon is a 43 year old female who presents with facial pain and swelling and rash. She has had this for the past 2-3 days. She states her face hurts a 10/10 when she wakes. It gets a bit better throughout the day. Her swelling has also started to improve slightly today. She denies any nasal congestion or drainage. She denies fever. Review of Systems Constitutional: Negative for chills and fever. HENT: Negative for congestion, ear pain and sore throat. See HPI Eyes: Negative for blurred vision, double vision, photophobia, pain, discharge and redness. Respiratory: Negative for cough. Cardiovascular: Negative. Gastrointestinal: Negative for nausea and vomiting. Skin: Positive for rash. Negative for itching. Neurological: Negative for headaches. BP 122/100 Pulse 76 Temp 36.6 ?C (97.8 ?F) Resp 21 Wt 47.8 kg (105 lb 6.4 oz) SpO2 98% BMI 18.67 kg/m? PAST MEDICAL HISTORY Diagnosis Date Agoraphobia 07/31/2014 Anxiety 09/20/2013 Bipolar I disorder, most recent episode (or current) depressed, moderate 2005 this was diagnosed when she was on prescription RX-no current care Diarrhea History of depression 04/02/2006 History of drug abuse (HCC) 02/06/2016 Abused narcotic pills. Drug free since 02/07/2017, Did Rehab in [place] Impaired fasting glucose 10/28/2010 Incisional hernia 03/07/2016 Surgery, other elective 06/07/2015 right axilla excision - see scanned documents Tobacco abuse 10/15/2010 PAST SURGICAL HISTORY Procedure Laterality Date ABDOMINAL SURGERY HX APPENDECTOMY COLONOSCOPY FLX DX W/COLLJ SPEC WHEN PFRMD 10/21/2012 Colonoscopy COLONOSCOPY FLX DX W/COLLJ SPEC WHEN PFRMD 06/06/2021 ESOPHAGOGASTRODUODENOSCOPY TRANSORAL DIAGNOSTIC 01/2003 EGD ESOPHAGOGASTRODUODENOSCOPY TRANSORAL DIAGNOSTIC 10/21/2012 EGD HERNIA REPAIR HX 2005 Umbilicalx2 IMPLANT MESH OPN HERNIA RPR/DEBRIDEMENT CLOSURE 03/07/2016 INCISION AND DRAINAGE ABSCESS SIMPLE/SINGLE 01/13,06/17 RIGHT AXILLA LAPAROSCOPY SURG CHOLECYSTECTOMY Cholecystectomy, lap PAST SURGICAL HISTORY OF franko john tubes removed REPAIR INCISIONAL HERNIA 03/07/2016 at umbilicus VAGINAL HYSTERECTOMY UTERUS 250 GM/< 01/2006 Hysterectomy, vaginal ALLERGIES Toradol [Ketorolac Tromethamine], Ultram [Tramadol Hcl], and Zoloft [Sertraline] MEDICATIONS estradiol (ESTRACE) 2 mg tablet Take 1 tablet by mouth once daily. methylPREDNISolone (MEDROL DOSE-PACK) 4 mg Dose-Pack use as directed FOLLOW DIRECTIONS ON BACK OF FOIL PACK calcipotriene (DOVONEX) 0.005 % oint APPLY TO THE ELBOWS AND KNEES TWICE A DAY NEEDED FOR FLARING FLUoxetine (PROZAC) 20 mg capsule Take 1 capsule by mouth once daily. valACYclovir (VALTREX) 1 gram Take 1 tablet by mouth three times daily for 7 days. FAMILY HISTORY Problem Relation Age of Onset None Mother Diabetes Father Headache Father Stroke Father Ischemic Heart Disease Father Lipids Father Hypertension Father other (epilepsy) Sister Diabetes Sister other (bladder cancer) Maternal Grandmother Diabetes Maternal Grandfather Diabetes Maternal Uncle Social History Tobacco Use Smoking status: Former Packs/day: 0.25 Years: 16.00 Additional pack years: 0.00 Total pack years: 4.00 Types: Cigarettes Quit date: 09/03/2021 Years since quittin.6 Smokeless tobacco: Never Vaping Use Vaping Use: Never used Substance Use Topics Alcohol use: Not Currently Comment: rare Drug use: No Comment: recovering prescription drug abuse- Vicodin, Percocet Objective Physical Exam Vitals and nursing note reviewed. Constitutional: General: She is not in acute distress. Appearance: Normal appearance. She is not ill-appearing. HENT: Head: Right Ear: Tympanic membrane, ear canal and external ear normal. Left Ear: Tympanic membrane, ear canal and external ear normal. Nose: No congestion or rhinorrhea. Mouth/Throat: Mouth: Mucous membranes are moist. Pharynx: Oropharynx is clear. No oropharyngeal exudate or posterior oropharyngeal erythema. Eyes: General: Lids are normal. Vision grossly intact. Gaze aligned appropriately. Extraocular Movements: Right eye: Normal extraocular motion and no nystagmus. Conjunctiva/sclera: Right eye: Right conjunctiva is not injected. No chemosis, exudate or hemorrhage. Neurological: Mental Status: She is alert. ASSESSMENT/PLAN: 1. Herpes zoster without complication - ICD9: 053.9, ICD10: B02.9 - VALACYCLOVIR 1 GRAM TABLET - Follow-up with your EYE DOCTOR in 3-5 days if you develop eye symptoms or visual changes. - Discussed red flags and need for immediate medical evaluation if any occur. - Discussed supportive care treatment with fluids, rest and analgesia. - Discussed expected course of illness Richa (more content not included)... [facility] 04-18-2023 History of Present illness Narrative Images from the original note were not included. Subjective HPI Antoinette Damon is a 43 year old female who presents with facial pain and swelling and rash. She has had this for the past 2-3 days. She states her face hurts a 10/10 when she wakes. It gets a bit better throughout the day. Her swelling has also started to improve slightly today. She denies any nasal congestion or drainage. She denies fever. Review of Systems Constitutional: Negative for chills and fever. HENT: Negative for congestion, ear pain and sore throat. See HPI Eyes: Negative for blurred vision, double vision, photophobia, pain, discharge and redness. Respiratory: Negative for cough. Cardiovascular: Negative. Gastrointestinal: Negative for nausea and vomiting. Skin: Positive for rash. Negative for itching. Neurological: Negative for headaches. BP 122/100 Pulse 76 Temp 36.6 C (97.8 F) Resp 21 Wt 47.8 kg (105 lb 6.4 oz) SpO2 98% BMI 18.67 kg/m PAST MEDICAL HISTORY Diagnosis Date Agoraphobia 07/31/2014 Anxiety 09/20/2013 Bipolar I disorder, most recent episode (or current) depressed, moderate 2005 this was diagnosed when she was on prescription RX-no current care Diarrhea History of depression 04/02/2006 History of drug abuse (HCC) 02/06/2016 Abused narcotic pills. Drug free since 02/07/2017, Did Rehab in [place] Impaired fasting glucose 10/28/2010 Incisional hernia 03/07/2016 Surgery, other elective 06/07/2015 right axilla excision - see scanned documents Tobacco abuse 10/15/2010 PAST SURGICAL HISTORY Procedure Laterality Date ABDOMINAL SURGERY HX APPENDECTOMY COLONOSCOPY FLX DX W/COLLJ SPEC WHEN PFRMD 10/21/2012 Colonoscopy COLONOSCOPY FLX DX W/COLLJ SPEC WHEN PFRMD 06/06/2021 ESOPHAGOGASTRODUODENOSCOPY TRANSORAL DIAGNOSTIC 01/2003 EGD ESOPHAGOGASTRODUODENOSCOPY TRANSORAL DIAGNOSTIC 10/21/2012 EGD HERNIA REPAIR HX 2005 Umbilicalx2 IMPLANT MESH OPN HERNIA RPR/DEBRIDEMENT CLOSURE 03/07/2016 INCISION & DRAINAGE ABSCESS SIMPLE/SINGLE 01/13,06/17 RIGHT AXILLA LAPAROSCOPY SURG CHOLECYSTECTOMY Cholecystectomy, lap PAST SURGICAL HISTORY OF franko john tubes removed REPAIR INCISIONAL HERNIA 03/07/2016 at umbilicus VAGINAL HYSTERECTOMY UTERUS 250 GM/< 01/2006 Hysterectomy, vaginal ALLERGIES Toradol [Ketorolac Tromethamine], Ultram [Tramadol Hcl], and Zoloft [Sertraline] MEDICATIONS estradiol (ESTRACE) 2 mg tablet Take 1 tablet by mouth once daily. methylPREDNISolone (MEDROL DOSE-PACK) 4 mg Dose-Pack use as directed FOLLOW DIRECTIONS ON BACK OF FOIL PACK calcipotriene (DOVONEX) 0.005 % oint APPLY TO THE ELBOWS AND KNEES TWICE A DAY NEEDED FOR FLARING FLUoxetine (PROZAC) 20 mg capsule Take 1 capsule by mouth once daily. valACYclovir (VALTREX) 1 gram Take 1 tablet by mouth three times daily for 7 days. FAMILY HISTORY Problem Relation Age of Onset None Mother Diabetes Father Headache Father Stroke Father Ischemic Heart Disease Father Lipids Father Hypertension Father other (epilepsy) Sister Diabetes Sister other (bladder cancer) Maternal Grandmother Diabetes Maternal Grandfather Diabetes Maternal Uncle Social History Tobacco Use Smoking status: Former Packs/day: 0.25 Years: 16.00 Additional pack years: 0.00 Total pack years: 4.00 Types: Cigarettes Quit date: 09/03/2021 Years since quittin.6 Smokeless tobacco: Never Vaping Use Vaping Use: Never used Substance Use Topics Alcohol use: Not Currently Comment: rare Drug use: No Comment: recovering prescription drug abuse- Vicodin, Percocet Objective Physical Exam Vitals and nursing note reviewed. Constitutional: General: She is not in acute distress. Appearance: Normal appearance. She is not ill-appearing. HENT: Head: Right Ear: Tympanic membrane, ear canal and external ear normal. Left Ear: Tympanic membrane, ear canal and external ear normal. Nose: No congestion or rhinorrhea. Mouth/Throat: Mouth: Mucous membranes are moist. Pharynx: Oropharynx is clear. No oropharyngeal exudate or posterior oropharyngeal erythema. Eyes: General: Lids are normal. Vision grossly intact. Gaze aligned appropriately. Extraocular Movements: Right eye: Normal extraocular motion and no nystagmus. Conjunctiva/sclera: Right eye: Right conjunctiva is not injected. No chemosis, exudate or hemorrhage. Neurological: Mental Status: She is alert. ASSESSMENT/PLAN: 1. Herpes zoster without complication - ICD9: 053.9, ICD10: B02.9 - VALACYCLOVIR 1 GRAM TABLET - Follow-up with your EYE DOCTOR in 3-5 days if you develop eye symptoms or visual changes. - Discussed red flags and need for immediate medical evaluation if any occur. - Discussed supportive care treatment with fluids, rest and analgesia. - Discussed expected course of illness Jody Mauricio APRN.TICKET SALES SUPERVISOR documented in this encounter [facility] 04-18-2023 Instructions Jody Mauricio APRN.TICKET SALES SUPERVISOR - 04/18/2023 12:37 PM EDT ASSESSMENT/PLAN: 1. Herpes zoster without complication - ICD9: 053.9, ICD10: B02.9 - VALACYCLOVIR 1 GRAM TABLET - Follow-up with your EYE DOCTOR in 3-5 days if you develop eye symptoms or visual changes. - Discussed red flags and need for immediate medical evaluation if any occur. - Discussed supportive care treatment with fluids, rest and analgesia. - Discussed expected course of illness Jody Mauricio APRN.[facility] PATIENT INFO SHINGLES Shingles (Herpes Zoster) What is shingles? Shingles is an infection caused by the same virus that causes chickenpox. This virus is called varicella zoster. You cannot develop shingles unless you have had a previous infection of chickenpox (usually as a child). Shingles is also called herpes zoster. This infection is most common in people over 60 years of age, but young people can have it as well. How does it occur? After you recover from chickenpox, the chickenpox virus is not destroyed. It moves back to the roots of your nerve cells (near the spinal cord) and becomes inactive (dormant). Later, if the virus is reactivated, the symptoms are called shingles. What exactly causes the reactivation of the virus is not known. A weakened immune system seems to allow reactivation of the virus. Advancing age and chronic use of cortisone-type drugs may trigger shingles. The virus may also become active again after the skin is injured or sunburned. Emotional stress seems to be a common trigger as well. What are the symptoms? The first sign of shingles is often burning, sharp pain, tingling, or numbness in or under your skin on one side of your body or face. The most common site is the back or upper abdomen. You may have severe itching or aching. You also may feel tired and ill with fever, chills, headache, and upset stomach. After several days, you will notice a rash of small, clear, fluid-filled blisters on reddened skin. Within 3 days after they appear, the blisters will turn yellow, then dry and crust over. Over the next 2 weeks the crusts will drop off, sometimes leaving small, pitted scars. Because they tend to follow nerve paths, the blisters are usually found in a line, often extending from the back or flank around to the abdomen, just on one side. Shingles usually doesn't cross the midline of the body. (The word shingles comes from the Latin word for belt or girdle.) The rash also may appear on one side of your face. Some people have painful eye inflammations and infections. Is shingles contagious? You can't get shingles from someone else, but you may get chickenpox from contact with shingles blisters if you have not had chickenpox before. The shingles virus is in the blister fluid. The virus can spread by direct contact with a blister. It can also be spread by indirect contact, for example, if you use a washcloth that has blister fluid on it. If you have shingles, avoid contact with infants, children, women, and adults who have never had chickenpox or the chickenpox shot until your blisters are completely dry. How is shingles diagnosed? Your health care provider will ask about your symptoms and examine you. Your provider may order lab tests to look for the virus in fluid from a blister. How is it treated? It is best to start treatment within 24 to 48 hours after symptoms start. Your health care provider may prescribe: -an antiviral drug, such as acyclovir, to speed recovery and lessen the chance of prolonged symptoms from nerve inflammation -painkillers for more serious discomfort if nonprescription painkillers are not helping enough -antibacterial salves or lotions to help prevent bacterial infection of the blisters -capsaicin cream for pain How long will the effects last? The rash from shingles will heal in 1 to 2 weeks and the pain or irritation will usually disappear within 3 to 5 weeks. If the virus damages a nerve, you may have pain, numbness, or tingling for months or even years after the rash is healed. This is a condition called postherpetic neuralgia. It is most likely to occur after a shingles outbreaks in people over 50 years old. Antiviral medicine prescribed at the time the shingles is diagnosed and taken for 7 days can help prevent this problem. How can I take care of myself? -Take a pain relief medicine such as acetaminophen. Take other medicine as prescribed by your health care provider. -Put a cool compress on the rash (such as a cool, moist washcloth). -Rest in bed during the early stages if you have fever and other symptoms. -Try to avoid having clothing or bed linens rubbing against the rash, which might irritate it. Call your health care provider if: -You develop worsening pain or fever. -The blisters show signs of bacterial infection, such as increasing pain or redness, or milky yellow drainage from the blister sites. -The blisters are close to the eyes. How can I help prevent shingles? -If you have never had chickenpox, you can get a shot to help prevent infection with the chickenpox virus. -You can protect your immune system and lessen your chances of getting shingles by trying to keep your stress under control documented in this encounter [facility] 01-02-2023 Miscellaneous Notes Last annual 12/16/22. Needing a prescription for her Estradiol. Dr. Hollis sent in a one month supply and told patient she needs [facility] to manage. RX pending. Patient also requesting Diflucan for a yeast infection. On antibiotics for a tooth infection. Has tried Monistat in the past without success. Please file. Liana Nam RN documented in this encounter [facility] 12-16-2022 Note HNO ID: [id number] Author: Zabrina Peck MD Service: ? Author Type: Physician Type: Progress Notes Filed: 12/16/2022 9:25 AM Note Text: Antoinette is a 42 year old who presents for an annual gynecologic exam. She report that she feels hot and wonders if she needs a higher dose of estrogen. She had a hysterectomy with BSO at age 26. Menses: no menses - postmenopausal. 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 Drug free since 02/07/2017, Did Rehab in [place] Impaired fasting glucose 10/28/2010 Incisional hernia 03/07/2016 Surgery, other elective 06/07/2015 right axilla excision - see scanned documents Tobacco abuse 10/15/2010 PAST SURGICAL HISTORY Procedure Laterality Date ABDOMINAL SURGERY HX APPENDECTOMY COLONOSCOPY FLX DX W/COLLJ SPEC WHEN PFRMD 10/21/2012 Colonoscopy COLONOSCOPY FLX DX W/COLLJ SPEC WHEN PFRMD 06/06/2021 ESOPHAGOGASTRODUODENOSCOPY TRANSORAL DIAGNOSTIC 01/2003 EGD ESOPHAGOGASTRODUODENOSCOPY TRANSORAL DIAGNOSTIC 10/21/2012 EGD HERNIA REPAIR HX 2005 Umbilicalx2 IMPLANT MESH OPN HERNIA RPR/DEBRIDEMENT CLOSURE 03/07/2016 INCISION AND DRAINAGE ABSCESS SIMPLE/SINGLE 01/13,06/17 RIGHT AXILLA LAPAROSCOPY SURG CHOLECYSTECTOMY Cholecystectomy, lap PAST SURGICAL HISTORY OF franko john tubes removed REPAIR INCISIONAL HERNIA 03/07/2016 at umbilicus VAGINAL HYSTERECTOMY UTERUS 250 GM/< 01/2006 Hysterectomy, vaginal FAMILY HISTORY Problem Relation Age of Onset None Mother Diabetes Father Headache Father Stroke Father Ischemic Heart Disease Father Lipids Father Hypertension Father other (epilepsy) Sister Diabetes Sister other (bladder cancer) Maternal Grandmother Diabetes Maternal Grandfather Diabetes Maternal Uncle SOCIAL HISTORY Social History Tobacco Use Smoking status: Former Packs/day: 0.25 Years: 16.00 Pack years: 4.00 Types: Cigarettes Quit date: 09/03/2021 Years since quittin.2 Smokeless tobacco: Never Vaping Use Vaping Use: Never used Substance Use Topics Alcohol use: Not Currently Comment: rare Drug use: No Comment: recovering prescription drug abuse- Vicodin, Percocet REVIEW OF SYSTEMS Abdomen: reports some BM changes over the past 6 months and has discussed them with her pcp Bladder: No dysuria, gross hematuria, urinary frequency, urinary urgency, or incontinence. Breast: No breast lumps, nipple d/c, overlying skin changes, redness or skin retraction. Allergies and current medication updated:Yes EXAM: Ht 5' 3 (1.60m) Wt 116 lb (52.6kg) BMI 20.55 kg/(m2). GENERAL: pleasant, female in no apparent distress BREAST: soft, non-tender, symmetric, no dominant mass, normal nipple-areolar complex, no lymphadenopathy, and no nipple discharge CHEST: Normal inspiratory effort ABDOMEN: soft, non-tender, and no masses PELVIC: external genitalia normal, normal Bartholin's glands, urethra, Channing's glands, no vulvar lesions, normal appearing perineal body and perianal region BIMANUAL: no adnexal masses, non-tender, and uterus surgically absent RECTOVAGINAL: deferred. NEURO: alert and oriented x3,exam grossly non-focal EXTREMITIES: normal ASSESSMENT/PLAN: 1) Health maintenance: Pap/HPV no longer needed Mammogram ordered at [facility] per patient request Nutrition, exercise and routine health maintenance exams reviewed. 2) Contraception: hysterectomy. Contraceptive options reviewed and information provided. 3) Premature surgical menopause - discussed R/B/A and patient wishes to proceed with consult to 4) Follow up one year or sooner as needed Zabrina Peck MD [facility] 12-16-2022 History of Present illness Narrative Antoinette is a 42 year old who presents for an annual gynecologic exam. She report that she feels hot and wonders if she needs a higher dose of estrogen. She had a hysterectomy with BSO at age 26. Menses: no menses - postmenopausal. 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 Drug free since 02/07/2017, Did Rehab in [place] Impaired fasting glucose 10/28/2010 Incisional hernia 03/07/2016 Surgery, other elective 06/07/2015 right axilla excision - see scanned documents Tobacco abuse 10/15/2010 PAST SURGICAL HISTORY Procedure Laterality Date ABDOMINAL SURGERY HX APPENDECTOMY COLONOSCOPY FLX DX W/COLLJ SPEC WHEN PFRMD 10/21/2012 Colonoscopy COLONOSCOPY FLX DX W/COLLJ SPEC WHEN PFRMD 06/06/2021 ESOPHAGOGASTRODUODENOSCOPY TRANSORAL DIAGNOSTIC 01/2003 EGD ESOPHAGOGASTRODUODENOSCOPY TRANSORAL DIAGNOSTIC 10/21/2012 EGD HERNIA REPAIR HX 2005 Umbilicalx2 IMPLANT MESH OPN HERNIA RPR/DEBRIDEMENT CLOSURE 03/07/2016 INCISION & DRAINAGE ABSCESS SIMPLE/SINGLE 01/13,06/17 RIGHT AXILLA LAPAROSCOPY SURG CHOLECYSTECTOMY Cholecystectomy, lap PAST SURGICAL HISTORY OF franko john tubes removed REPAIR INCISIONAL HERNIA 03/07/2016 at umbilicus VAGINAL HYSTERECTOMY UTERUS 250 GM/< 01/2006 Hysterectomy, vaginal FAMILY HISTORY Problem Relation Age of Onset None Mother Diabetes Father Headache Father Stroke Father Ischemic Heart Disease Father Lipids Father Hypertension Father other (epilepsy) Sister Diabetes Sister other (bladder cancer) Maternal Grandmother Diabetes Maternal Grandfather Diabetes Maternal Uncle SOCIAL HISTORY Social History Tobacco Use Smoking status: Former Packs/day: 0.25 Years: 16.00 Pack years: 4.00 Types: Cigarettes Quit date: 09/03/2021 Years since quittin.2 Smokeless tobacco: Never Vaping Use Vaping Use: Never used Substance Use Topics Alcohol use: Not Currently Comment: rare Drug use: No Comment: recovering prescription drug abuse- Vicodin, Percocet REVIEW OF SYSTEMS Abdomen: reports some BM changes over the past 6 months and has discussed them with her pcp Bladder: No dysuria, gross hematuria, urinary frequency, urinary urgency, or incontinence. Breast: No breast lumps, nipple d/c, overlying skin changes, redness or skin retraction. Allergies and current medication updated:Yes EXAM: Ht 5' 3 (1.60m) Wt 116 lb (52.6kg) BMI 20.55 kg/(m^2). GENERAL: pleasant, female in no apparent distress BREAST: soft, non-tender, symmetric, no dominant mass, normal nipple-areolar complex, no lymphadenopathy, and no nipple discharge CHEST: Normal inspiratory effort ABDOMEN: soft, non-tender, and no masses PELVIC: external genitalia normal, normal Bartholin's glands, urethra, Channing's glands, no vulvar lesions, normal appearing perineal body and perianal region BIMANUAL: no adnexal masses, non-tender, and uterus surgically absent RECTOVAGINAL: deferred. NEURO: alert and oriented x3,exam grossly non-focal EXTREMITIES: normal ASSESSMENT/PLAN: 1) Health maintenance: Pap/HPV no longer needed Mammogram ordered at [facility] per patient request Nutrition, exercise and routine health maintenance exams reviewed. 2) Contraception: hysterectomy. Contraceptive options reviewed and information provided. 3) Premature surgical menopause - discussed R/B/A and patient wishes to proceed with consult to 4) Follow up one year or sooner as needed Zabrina Peck MD documented in this encounter [facility] 12-04-2022 Miscellaneous Notes Patient returned call and given provider's message below and patient verbalized understanding. Vikki Degroot RN Left message for pt to contact office. Hiral Lundy LPN Let patient know a 30 day supply was sent to [facility]. The following approved medication requests have been transmitted electronically. Requested Prescriptions Signed Prescriptions Disp Refills estradiol (ESTRACE) 2 mg tablet 30 tablet 0 Sig: Take 1 tablet by mouth once daily. Authorizing Provider: DAVIDA HOLLIS MD Pt called and is notified of providers results and instructions. Pt voices understanding. She states she tried to make 2 appointment with the OBGYN that took over and was canceled on twice. I put Pt through to scheduling to set up with one of our OBGYN providers here. Pt is asking if provider would put in 1 month of medication for her as she will be taking her last pill tonight. She states she has been on this since she was 26 and the last time she was off of it she ended up with welts all over her body and in the hospital for dehydration. Please call and advise. Jaquelin Guan RN Per the reconcile Hx there shows a script to [facility] on 10/27/2022 for 30 tabs with 11 refills. Has she contacted [facility] to refill her meds? Also Dr. Quevedo's practice was taken over by another [facility] group did she contact them? If not she needs to as well as establish with them or another BILLING DEPARTMENT SUPERVISOR since I do not provide this care. Please see message below. Pt had ov 11/06/22. Hiral Lundy LPN Antoinette Damon is calling Davida Hollis MD today to request a RX for estradiol 2 mg tablet, as patient states her BILLING DEPARTMENT SUPERVISOR has retired and she needs to ask PCP now for these refills. The RX on medication list is only for 1 mg once daily which per patient has changed to that 2 mg tablet once daily. Please send RX to [facility]. When provider agrees, if not please call patient Patient only has one tablet left, is this possible for provider to help with this refill?. Will patient need an appointment with PCP to have this filled? Patient has been identified by name and birthdate. Duration of symptoms: N/A Person calling: self Call patient at: on cell [phone] (home) [phone] (cell) Was an appointment scheduled: No Closing statement: Results or non-symptom based questions: Thank you for calling [facility], your call will be returned within the next business day. Margi Menon [facility] [place] [place] Electronically signed by Margi Menon [facility] [place] [place] at 12/04/2022 8:53 AM EDT documented in this encounter [facility] 11-19-2022 Note Patient Outreach (IN TMMN) ANTOINETTE DAMON ([id number]) 1980 F Date Time Provider Department 11/19/22 DAVIDA HOLLIS During your visit today, we recorded the following information about you: Allergies As of Date: 11/19/2022 Noted Allergy Reaction TORADOL (KETOROLAC TROMETHAMINE) 06/16/2014 4 - Hives ULTRAM (TRAMADOL HCL) 08/19/2005 4 - Hives Comments: opioid abuse ZOLOFT (SERTRALINE) 04/11/2021 14 - Other: See Comments Comments: Made her more jittery Date Reviewed: 11/06/2022 Reviewed by: Hiral Lundy LPN - Fully Assessed Visit Diagnosis:Encounter for screening mammogram for breast cancer [Z12.31] Order(s):[facility] SCREENING [[id number]] Order #: [id number] FUTURE Prescriptions as of 11/24/2022 - methylPREDNISolone (MEDROL DOSE-PACK) 4 mg Dose-Pack use as directed FOLLOW DIRECTIONS ON BACK OF FOIL PACK - calcipotriene (DOVONEX) 0.005 % oint APPLY TO THE ELBOWS AND KNEES TWICE A DAY NEEDED FOR FLARING - FLUoxetine (PROZAC) 20 mg capsule Take 1 capsule by mouth once daily. - estradiol (ESTRACE) 1 mg tablet Take 1 tablet by mouth once daily. 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/05/2008 09/20/2013 Lymphadenopathy [R59.1] 06/15/2009 09/20/2013 Acne Vulgaris: Grade III to IV inflammatory: fa*03/28/2010 02/06/2016 Former smoker [Z87.891] 10/15/2010 Impaired fasting glucose [R73.01] 10/28/2010 Other psoriasis: eyelids [L40.8] 09/07/2011 Irritant dermatitis: eyelids [L24.9] 09/07/2011 02/06/2016 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/07/2011 Diarrhea [R19.7] 10/21/2012 06/06/2021 Acne vulgaris [L70.0] 11/10/2012 Perioral dermatitis [L71.0] 11/10/2012 02/06/2016 Acne rosacea [L71.9] 11/10/2012 Abscess of anal and rectal regions [K61.2] 01/06/2013 09/20/2013 Open wound of axillary region [S41.109A] 03/24/2013 09/20/2013 Anxiety [F41.9] 09/20/2013 Crush injury of right foot [S97.81XA] 03/13/2014 07/31/2014 Agoraphobia [F40.00] 07/31/2014 Kidney stones [N20.0] 11/27/2014 Irritable bowel syndrome with diarrhea [K58.0] 06/04/2015 Disruption of external surgical wound [T81.31XA]09/26/2015 02/06/2016 Breast pain, right [N64.4] 12/12/2015 02/06/2016 Umbilical hernia without obstruction or gangren*02/06/2016 History of drug abuse (HCC) [F19.11] 02/06/2016 Recurrent ventral incisional hernia [K43.2] 03/14/2016 Abdominal pain [R10.9] 12/11/2016 06/06/2021 History of methicillin resistant Staphylococcus*03/12/2018 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 Hiral Lundy LPN ----- Message from Kristy Bates PA-C sent at 11/13/2022 1:31 PM EDT ----- US is normal. documented in this encounter [facility] 11-13-2022 Note HNO ID: [id number] Author: Fallon Cox RDMS Service: ? Author Type: Power Shovel Engineer Type: Progress Notes Filed: 11/13/2022 11:26 AM Note Text: Radiology Service Progress Note PATIENT NAME: Antoinette Damon DATE OF SERVICE: November 13, 2022 TIME: 11:26 AM PATIENT IDENTITY VERIFICATION COMPLETED USING TWO (2) IDENTIFIERS: Name and Date of confirmed by patient verbally. FALL SCREENING: Has the patient had 2 falls in the last year or 1 fall with injury or currently using an Ambulatory Assistive Device (Walker, Cane, Wheelchair, Crutches, etc.)? No PATIENT GENDER DATA: Female. status: : No status: NO. PATIENT RELEVANT IMPLANT DATA REVIEWED: Not Applicable RADIOLOGY DEPARTMENT: Ultrasound PERIPHERAL IV DATA: Not applicable SIGNED BY: Fallon Cox RDMS November 13, 2022 11:26 AM [facility] 11-13-2022 History of Present illness Narrative Radiology Service Progress Note PATIENT NAME: Antoinette Damon DATE OF SERVICE: November 13, 2022 TIME: 11:26 AM PATIENT IDENTITY VERIFICATION COMPLETED USING TWO (2) IDENTIFIERS: Name and Date of confirmed by patient verbally. FALL SCREENING: Has the patient had 2 falls in the last year or 1 fall with injury or currently using an Ambulatory Assistive Device (Walker, Cane, Wheelchair, Crutches, etc.)? No PATIENT GENDER DATA: Female. status: : No status: NO. PATIENT RELEVANT IMPLANT DATA REVIEWED: Not Applicable RADIOLOGY DEPARTMENT: Ultrasound PERIPHERAL IV DATA: Not applicable SIGNED BY: Fallon Cox RDMS November 13, 2022 11:26 AM documented in this encounter [facility] 11-10-2022 Miscellaneous Notes Patient notified of results and provider's instructions. Patient verbalizes understanding. Hiral Lundy LPN Let patient know that xray does show a rib Fracture of 12th rib. We treat these conservatively. Rib fractures can take 6 weeks to heal however if pain continues, should come to be seen. If experiencing new shortness of breath or severe pain, return to office or go to ER. Kristy Bates PA-C documented in this encounter [facility] 11-07-2022 Miscellaneous Notes Patient notified of results and provider's instructions. Patient verbalizes understanding. Pt will repeat labs as ordered. Pt was transferred to schedule US. Hiral Lundy LPN Let patient know that her Liver enzymes have increased a little more. I would like to get an US of the liver and recheck 1 more time in 1 month. Her platelet counts are improving. So we will also recheck again in 1 month to just make sure back to normal. Her thyroid lab was normal. Thanks. Kristy Bates PA-C documented in this encounter [facility] 11-06-2022 Note HNO ID: [id number] Author: RT Lowell(R) Service: Nuclear Medicine Author Type: Technologist Type: Progress Notes Filed: 11/06/2022 11:16 AM Note Text: Radiology Service Progress Note PATIENT NAME: Antoinette Damon DATE OF SERVICE: November 06, 2022 TIME: 11:07 AM PATIENT IDENTITY VERIFICATION COMPLETED USING TWO (2) IDENTIFIERS: Name and Date of confirmed by patient verbally. FALL SCREENING: Has the patient had 2 falls in the last year or 1 fall with injury or currently using an Ambulatory Assistive Device (Walker, Cane, Wheelchair, Crutches, etc.)? No PATIENT GENDER DATA: Female. status: : No status: NO. PATIENT RELEVANT IMPLANT DATA REVIEWED: Not Applicable RADIOLOGY DEPARTMENT: General X-ray: Exam(s) Completed: Rib X-Ray: Right PERIPHERAL IV DATA: Not applicable SIGNED BY: RT Lowell(R) November 06, 2022 11:07 AM [facility] 11-06-2022 Note HNO ID: [id number] Author: Kristy Bates PA-C Service: ? Author Type: Physician Plate Preparer Type: Progress Notes Filed: 11/06/2022 11:27 AM Note Text: Chief Complaint Patient presents with: Yearly Exam HPI Antoinette Damon is a 42 year old female who presents here today for physical. Patient with hx of RLS, elevated glucose, anxiety/depression, former smoker, psoriasis, GERD, and those as below. Patient has noted some back pain in mid back. Has been present for the past week. Does wrap around to the front of rib cage. Advil does help. No recent injuries. Past medical history, appointments, medications, allergies reviewed. Previous Medical History PAST MEDICAL HISTORY Diagnosis Date Agoraphobia 07/31/2014 Anxiety 09/20/2013 Bipolar I disorder, most recent episode (or current) depressed, moderate 2005 this was diagnosed when she was on prescription RX-no current care Diarrhea History of depression 04/02/2006 History of drug abuse (HCC) 02/06/2016 Abused narcotic pills. Drug free since 02/07/2017, Did Rehab in [place] Impaired fasting glucose 10/28/2010 Incisional hernia 03/07/2016 Surgery, other elective 06/07/2015 right axilla excision - see scanned documents Tobacco abuse 10/15/2010 Previous Surgical History PAST SURGICAL HISTORY Procedure Laterality Date ABDOMINAL SURGERY HX APPENDECTOMY COLONOSCOPY FLX DX W/COLLJ SPEC WHEN PFRMD 10/21/2012 Colonoscopy COLONOSCOPY FLX DX W/COLLJ SPEC WHEN PFRMD 06/06/2021 ESOPHAGOGASTRODUODENOSCOPY TRANSORAL DIAGNOSTIC 01/2003 EGD ESOPHAGOGASTRODUODENOSCOPY TRANSORAL DIAGNOSTIC 10/21/2012 EGD HERNIA REPAIR HX 2005 Umbilicalx2 IMPLANT MESH OPN HERNIA RPR/DEBRIDEMENT CLOSURE 03/07/2016 INCISION AND DRAINAGE ABSCESS SIMPLE/SINGLE 01/13,06/17 RIGHT AXILLA LAPAROSCOPY SURG CHOLECYSTECTOMY Cholecystectomy, lap PAST SURGICAL HISTORY OF franko john tubes removed REPAIR INCISIONAL HERNIA 03/07/2016 at umbilicus VAGINAL HYSTERECTOMY UTERUS 250 GM/< 01/2006 Hysterectomy, vaginal Family History FAMILY HISTORY Problem Relation Age of Onset None Mother Diabetes Father Headache Father Stroke Father Ischemic Heart Disease Father Lipids Father Hypertension Father Diabetes Maternal Grandfather Diabetes Maternal Uncle other (bladder cancer) Maternal Grandmother Patient Allergies ALLERGIES Allergen Reactions Toradol [Ketorolac * Hives Ultram [Tramadol Hc* Hives opioid abuse Zoloft [Sertraline] Other: See Comments Made her more jittery Current Medications Current Outpatient Medications on File Prior to Visit Medication Sig methylPREDNISolone (MEDROL DOSE-PACK) 4 mg Dose-Pack use as directed FOLLOW DIRECTIONS ON BACK OF FOIL PACK calcipotriene (DOVONEX) 0.005 % oint APPLY TO THE ELBOWS AND KNEES TWICE A DAY NEEDED FOR FLARING FLUoxetine (PROZAC) 10 mg capsule Take 1 capsule by mouth twice daily. estradiol (ESTRACE) 1 mg tablet Take 1 tablet by mouth once daily. No current facility-administered medications on file prior to visit. Social History Social History Tobacco Use Smoking status: Former Packs/day: 0.25 Years: 16.00 Pack years: 4.00 Types: Cigarettes Quit date: 09/03/2021 Years since quittin.1 Smokeless tobacco: Never Vaping Use Vaping Use: Never used Substance Use Topics Alcohol use: Never Comment: rare Drug use: No Comment: recovering prescription drug abuse- Vicodin, Percocet Review of Symptoms REVIEW OF SYSTEMS GENERAL: No weight loss, malaise or fevers HEENT: No changes in hearing or vision, no nose bleeds or other nasal problems NECK: Negative for lumps, goiter, pain and significant neck swelling RESPIRATORY: Negative for cough, hemoptysis, wheezing, COPD, dyspnea or shortness of breath CARDIOVASCULAR: Negative for chest pain, leg swelling, hypertension, CHF or palpitations GI: Negative for abdominal discomfort, blood in stools or black stools, change in bowel habit, heart burn, nausea, vomiting : No history of dysuria, frequency or incontinence MUSCULOSKELETAL: SEE hpi SKIN: seeing derm PSYCH: stable HEMATOLOGY/LYMPHOLOGY: Negative for prolonged bleeding, bruising easily or swollen nodes ENDOCRINE: Negative for cold or heat intolerance, polyuria, polydipsia and goiter NEURO: No history of headaches, syncope, paralysis, seizures or tremors EXAM: BP 118/70 (BP Site: Right Arm, BP Position: Sitting, BP Cuff Size: Regular Adult) Pulse 68 Temp 36.5 ?C (97.7 ?F) Resp 14 Ht 161.5 cm (5' 3.58 ) Wt 54.4 kg (120 lb) BMI 20.87 kg/m? General Appearance: Well appearing, alert, in no acute distress, well-hydrated, well nourished.. Skin: Skin color, texture, turgor normal, no suspicious rashes or lesions. Head: Normocephalic, no masses, lesions, tenderness or abnormalities. Eyes: Anicteric sclera. Pupils are equally round and reactive to light. Extraocular movements are intact. . Ears: External ears normal, (more content not included)... [facility] 11-06-2022 History of Present illness Narrative Chief Complaint Patient presents with: Yearly Exam HPI November Sejal Damon is a 42 year old female who presents here today for physical. Patient with hx of RLS, elevated glucose, anxiety/depression, former smoker, psoriasis, GERD, and those as below. Patient has noted some back pain in mid back. Has been present for the past week. Does wrap around to the front of rib cage. Advil does help. No recent injuries. Past medical history, appointments, medications, allergies reviewed. Previous Medical History PAST MEDICAL HISTORY Diagnosis Date Agoraphobia 07/31/2014 Anxiety 09/20/2013 Bipolar I disorder, most recent episode (or current) depressed, moderate 2005 this was diagnosed when she was on prescription RX-no current care Diarrhea History of depression 04/02/2006 History of drug abuse (HCC) 02/06/2016 Abused narcotic pills. Drug free since 02/07/2017, Did Rehab in [place] Impaired fasting glucose 10/28/2010 Incisional hernia 03/07/2016 Surgery, other elective 06/07/2015 right axilla excision - see scanned documents Tobacco abuse 10/15/2010 Previous Surgical History PAST SURGICAL HISTORY Procedure Laterality Date ABDOMINAL SURGERY HX APPENDECTOMY COLONOSCOPY FLX DX W/COLLJ SPEC WHEN PFRMD 10/21/2012 Colonoscopy COLONOSCOPY FLX DX W/COLLJ SPEC WHEN PFRMD 06/06/2021 ESOPHAGOGASTRODUODENOSCOPY TRANSORAL DIAGNOSTIC 01/2003 EGD ESOPHAGOGASTRODUODENOSCOPY TRANSORAL DIAGNOSTIC 10/21/2012 EGD HERNIA REPAIR HX 2005 Umbilicalx2 IMPLANT MESH OPN HERNIA RPR/DEBRIDEMENT CLOSURE 03/07/2016 INCISION & DRAINAGE ABSCESS SIMPLE/SINGLE 01/13,06/17 RIGHT AXILLA LAPAROSCOPY SURG CHOLECYSTECTOMY Cholecystectomy, lap PAST SURGICAL HISTORY OF franko john tubes removed REPAIR INCISIONAL HERNIA 03/07/2016 at umbilicus VAGINAL HYSTERECTOMY UTERUS 250 GM/< 01/2006 Hysterectomy, vaginal Family History FAMILY HISTORY Problem Relation Age of Onset None Mother Diabetes Father Headache Father Stroke Father Ischemic Heart Disease Father Lipids Father Hypertension Father Diabetes Maternal Grandfather Diabetes Maternal Uncle other (bladder cancer) Maternal Grandmother Patient Allergies ALLERGIES Allergen Reactions Toradol [Ketorolac * Hives Ultram [Tramadol Hc* Hives opioid abuse Zoloft [Sertraline] Other: See Comments Made her more jittery Current Medications Current Outpatient Medications on File Prior to Visit Medication Sig methylPREDNISolone (MEDROL DOSE-PACK) 4 mg Dose-Pack use as directed FOLLOW DIRECTIONS ON BACK OF FOIL PACK calcipotriene (DOVONEX) 0.005 % oint APPLY TO THE ELBOWS AND KNEES TWICE A DAY NEEDED FOR FLARING FLUoxetine (PROZAC) 10 mg capsule Take 1 capsule by mouth twice daily. estradiol (ESTRACE) 1 mg tablet Take 1 tablet by mouth once daily. No current facility-administered medications on file prior to visit. Social History Social History Tobacco Use Smoking status: Former Packs/day: 0.25 Years: 16.00 Pack years: 4.00 Types: Cigarettes Quit date: 09/03/2021 Years since quittin.1 Smokeless tobacco: Never Vaping Use Vaping Use: Never used Substance Use Topics Alcohol use: Never Comment: rare Drug use: No Comment: recovering prescription drug abuse- Vicodin, Percocet Review of Symptoms REVIEW OF SYSTEMS GENERAL: No weight loss, malaise or fevers HEENT: No changes in hearing or vision, no nose bleeds or other nasal problems NECK: Negative for lumps, goiter, pain and significant neck swelling RESPIRATORY: Negative for cough, hemoptysis, wheezing, COPD, dyspnea or shortness of breath CARDIOVASCULAR: Negative for chest pain, leg swelling, hypertension, CHF or palpitations GI: Negative for abdominal discomfort, blood in stools or black stools, change in bowel habit, heart burn, nausea, vomiting : No history of dysuria, frequency or incontinence MUSCULOSKELETAL: SEE hpi SKIN: seeing derm PSYCH: stable HEMATOLOGY/LYMPHOLOGY: Negative for prolonged bleeding, bruising easily or swollen nodes ENDOCRINE: Negative for cold or heat intolerance, polyuria, polydipsia and goiter NEURO: No history of headaches, syncope, paralysis, seizures or tremors EXAM: BP 118/70 (BP Site: Right Arm, BP Position: Sitting, BP Cuff Size: Regular Adult) Pulse 68 Temp 36.5 C (97.7 F) Resp 14 Ht 161.5 cm (5' 3.58 ) Wt 54.4 kg (120 lb) BMI 20.87 kg/m General Appearance: Well appearing, alert, in no acute distress, well-hydrated, well nourished.. Skin: Skin color, texture, turgor normal, no suspicious rashes or lesions. Head: Normocephalic, no masses, lesions, tenderness or abnormalities. Eyes: Anicteric sclera. Pupils are equally round and reactive to light. Extraocular movements are intact. . Ears: External ears normal, canals clear, TMs pearly falk. Nose/Sinuses: Nares normal, septum midline, mucosa normal, no drainage or sinus tenderness. Oropharynx: Lips, mucosa, and tongue normal, teeth and gums normal, oropharynx normal. Neck: Supple, no adenopathy; thyroid symmetric, normal size, no bruits. Lungs: Lungs clear to auscultation. No wheezing, rhonchi, rales.. Heart: RRR without murmur, gallop, or rubs. No ectopy. Abdomen: Normal abdominal exam, Abdomen soft, non-tender. Bowel sounds normal. No masses, organomegaly. Extremities: No deformities, edema, skin discoloration, clubbing or cyanosis. Good capillary refill. . Musculoskeletal: No joint swelling, deformity, or tenderness. Peripheral Pulses: Normal. Neurologic: Gait normal. Reflexes normal and symmetric. Sensation grossly intact.. Health Maintenance List HEPATITIS C SCREENING Never done DEPRESSION ASSESSMENT Never done MAMMOGRAM due on 10/11/2022 HEPATITIS B(1 of 3 - 3-dose series) due on 11/07/2023 INFLUENZA(Season Ended) due on 04/03/2023 COLORECTAL CANCER SCREENING due on 06/06/2031 DTAP,TDAP,TD(3 - Td or Tdap) due on 03/28/2032 HIV SCREENING Completed PAP TESTING Discontinued HPV TESTING Discontinued COVID-19 VACCINE Discontinued Data reviewed Component Latest Ref Rng & Units 09/26/2022 WBC 3.70 - 11.00 k/uL 9.09 RBC 3.90 - 5.20 m/uL 4.34 Hemoglobin 11.5 - 15.5 g/dL 13.0 Hematocrit 36.0 - 46.0 % 40.3 MCV 80.0 - 100.0 fL 92.9 MCH 26.0 - 34.0 pg 30.0 MCHC 30.5 - 36.0 g/dL 32.3 RDW-CV 11.5 - 15.0 % 13.0 Platelet Count 150 - 400 k/uL 469 (H) MPV 9.0 - 12.7 fL 10.5 Neut% % 62.6 Abs Neut (ANC) 1.45 - 7.50 k/uL 5.69 Lymph% % 28.1 Abs Lymph 1.00 - 4.00 k/uL 2.55 Hughes% % 7.0 Abs Hughes <0.87 k/uL 0.64 Eosin% % 1.0 Abs Eosin <0.46 k/uL 0.09 Baso% % 1.1 Abs Baso <0.11 k/uL 0.10 Immature Gran % % 0.2 IMMATURE GRANS (ABS) <0.10 k/uL <0.03 NRBC /100 WBC 0.0 Absolute nRBC <0.01 k/uL <0.01 DTYPE Auto Protein, Total 6.3 - 8.0 g/dL 7.9 Albumin 3.9 - 4.9 g/dL 4.5 Calcium 8.5 - 10.2 mg/dL 9.6 Bilirubin, Total 0.2 - 1.3 mg/dL 0.3 Alkaline Phosphatase 34 - 123 U/L 99 AST 13 - 35 U/L 49 (H) ALT 7 - 38 U/L 62 (H) Glucose 74 - 99 mg/dL 94 BUN 7 - 21 mg/dL 14 Creatinine 0.58 - 0.96 mg/dL 0.76 Sodium 136 - 144 mmol/L 135 (L) Potassium 3.7 - 5.1 mmol/L 4.5 Chloride 97 - 105 mmol/L 100 CO2 22 - 30 mmol/L 23 Anion Gap 9 - 18 mmol/L 12 eGFR >=60 mL/min/1.73m 99 Total Cholesterol, Nonfasting <200 mg/dL 223 (H) Triglycerides, Nonfasting <150 mg/dL 184 (H) HDL Cholesterol, Nonfasting >39 mg/dL 77 LDL Cholesterol, Nonfasting <100 mg/dL 109 (H) Non HDL Cholesterol, Nonfasting <130 mg/dL 146 (H) VLDL Cholesterol, Nonfasting <30 mg/dL 37 (H) Total Chol/HDL Ratio, Nonfasting <5.10 mg/dL 2.90 LDL/HDL Ratio, Nonfasting <2.54 mg/dL 1.42 Hemoglobin A1C 4.3 - 5.6 % 5.7 (H) Estimated Average Glucose mg/dL 117 TSH 0.270 - 4.200 mIU/L 4.230 (H) ASSESSMENT/PLAN: 1. Well adult exam - ICD9: V70.0, ICD10: Z00.00 (primary diagnosis) - Counseled on healthy diet and regular exercise - Calcium intake with supplements or by diet of 1000 mg/day for under 50, 9297-2071 mg/day for 50+ 2. Impaired fasting glucose - ICD9: 790.21, ICD10: R73.01 Will monitor 3. Sebopsoriasis - ICD9: 696.1, ICD10: L40.8 Cont with derm 4. Former smoker - ICD9: V15.82, ICD10: Z87.891 5. Restless leg syndrome - ICD9: 333.94, ICD10: G25.81 stable 6. Anxiety - ICD9: 300.00, ICD10: F41.9 stable 7. Abnormal thyroid blood test - ICD9: 790.6, ICD10: R79.89 Recheck: - TSH BLD - T4 FREE/FREE THYROX 8. Elevated platelet count - ICD9: 790.6, ICD10: R79.89 Recheck: - CBC + DIFF 9. Elevated LFTs - ICD9: 790.6, ICD10: R79.89 Recheck: - COMP METABOLIC PANEL 10. Bloating - ICD9: 787.3, ICD10: R14.0 Set up with gastro - CONSULT TO GASTROENTEROLOGY 11. Diarrhea, unspecified type - ICD9: 787.91, ICD10: R19.7 - CONSULT TO GASTROENTEROLOGY 12. Rib pain on right side - ICD9: 786.50, ICD10: R07.81 No pain on exam today. Will get xray - XR RIBS/CHEST 3V AP RIB/OBLS/CXR RIGHT Kristy Bates PA-C documented in this encounter [facility] 10-28-2022 Miscellaneous Notes PA approved Authorized from October 28, 2022 to October 28, 2023 Patient was notified Grazyna Marin Ma Received Pa request from Love Reynaga. Electronic PA completed Grazyna Marin Ma documented in this encounter [facility] 10-24-2022 Miscellaneous Notes Pt notified & physical scheduled for 10/31/22. Zamzam Epperson LPN Patient cancelled her physical twice and hasn't rescheduled. But we need to discuss labs. Kristy Bates PA-C (In cancellation notes for 10/22 it has reason for cancellation as Equipment, Prep, Appropriateness, however this is not correct. I was here seeing patient's so not sure why it was cancelled.) documented in this encounter [facility] 09-27-2022 Miscellaneous Notes Patient called and informed her flu and COVID tests were negative. documented in this encounter [facility] 09-26-2022 Note HNO ID: [id number] Author: Davida Hollis MD Service: ? Author Type: Physician Type: Progress Notes Filed: 09/27/2022 1:39 PM Note Text: Chief Complaint Patient presents with: Sore Throat HPI Antoinette L Shankar is a 42 year old female who presents here today for sore throat x 5 days. Did have fever Thursday 101. Ear pain on the right. Lips have been peeling x 1 month. Has a history of mono when 15 years old feels like the same symptoms. Has an occasional cough non-productive. Had a mild headache earlier in the week. Feels slightly tired with decreased energy. No significant nasal discharge. No shortness of breath, wheezing, nausea, vomiting or diarrhea. Past medical history, appointments, medications, allergies reviewed. Previous Medical History PAST MEDICAL HISTORY Diagnosis Date Agoraphobia 07/31/2014 Anxiety 09/20/2013 Bipolar I disorder, most recent episode (or current) depressed, moderate 2005 this was diagnosed when she was on prescription RX-no current care Diarrhea History of depression 04/02/2006 History of drug abuse (HCC) 02/06/2016 Abused narcotic pills. Drug free since 02/07/2017, Did Rehab in [place] Impaired fasting glucose 10/28/2010 Incisional hernia 03/07/2016 Surgery, other elective 06/07/2015 right axilla excision - see scanned documents Tobacco abuse 10/15/2010 Previous Surgical History PAST SURGICAL HISTORY Procedure Laterality Date ABDOMINAL SURGERY HX APPENDECTOMY COLONOSCOPY FLX DX W/COLLJ SPEC WHEN PFRMD 10/21/2012 Colonoscopy COLONOSCOPY FLX DX W/COLLJ SPEC WHEN PFRMD 06/06/2021 ESOPHAGOGASTRODUODENOSCOPY TRANSORAL DIAGNOSTIC 01/2003 EGD ESOPHAGOGASTRODUODENOSCOPY TRANSORAL DIAGNOSTIC 10/21/2012 EGD HERNIA REPAIR HX 2005 Umbilicalx2 IMPLANT MESH OPN HERNIA RPR/DEBRIDEMENT CLOSURE 03/07/2016 INCISION AND DRAINAGE ABSCESS SIMPLE/SINGLE 01/13,06/17 RIGHT AXILLA LAPAROSCOPY SURG CHOLECYSTECTOMY Cholecystectomy, lap PAST SURGICAL HISTORY OF franko john tubes removed REPAIR INCISIONAL HERNIA 03/07/2016 at umbilicus VAGINAL HYSTERECTOMY UTERUS 250 GM/< 01/2006 Hysterectomy, vaginal Family History FAMILY HISTORY Problem Relation Age of Onset None Mother Diabetes Father Headache Father Stroke Father Ischemic Heart Disease Father Lipids Father Hypertension Father Diabetes Maternal Grandfather Diabetes Maternal Uncle other (bladder cancer) Maternal Grandmother Patient Allergies ALLERGIES Allergen Reactions Toradol [Ketorolac * Hives Ultram [Tramadol Hc* Hives opioid abuse Zoloft [Sertraline] Other: See Comments Made her more jittery Current Medications Current Outpatient Medications on File Prior to Visit Medication Sig FLUoxetine (PROZAC) 10 mg capsule Take 1 capsule by mouth twice daily. estradiol (ESTRACE) 1 mg tablet Take 1 tablet by mouth once daily. No current facility-administered medications on file prior to visit. Social History Social History Tobacco Use Smoking status: Every Day Packs/day: 0.25 Years: 16.00 Pack years: 4.00 Types: Cigarettes Smokeless tobacco: Never Vaping Use Vaping Use: Never used Substance Use Topics Alcohol use: Never Comment: rare Drug use: No Comment: recovering prescription drug abuse- Vicodin, Percocet Review of Symptoms REVIEW OF SYSTEMS See HPI EXAM: BP 120/78 (BP Site: Right Arm, BP Position: Sitting, BP Cuff Size: Regular Adult) Pulse 68 Temp 36.4 ?C (97.5 ?F) (Tympanic) Resp 16 Wt 53.1 kg (117 lb) BMI 19.77 kg/m? General Appearance: Well appearing, alert, in no acute distress, well-hydrated, well nourished.. Eyes: Anicteric sclera. Pupils are equally round and reactive to light. Extraocular movements are intact. . Ears: External ears, TM's normal, canals clear. Nose/Sinuses: Nares normal, septum midline, mucosa normal, no sinus tenderness. Slight clear mucus. Oropharynx: Lips, mucosa, and tongue normal, teeth and gums normal, oropharynx normal. Neck: Supple, no adenopathy; thyroid symmetric, normal size, no bruits. Gland on the left slightly enlarged and slightly tender. Lungs: Lungs clear to auscultation. No wheezing, rhonchi, rales.. Heart: RRR without murmur, gallop, or rubs. No ectopy. Health Maintenance List HEPATITIS B(1 of 3 - 3-dose series) Never done COVID-19 VACCINE(1) Never done PNEUMOCOCCAL(1 - PCV) Never done HEPATITIS C SCREENING Never done DTAP,TDAP,TD(2 - Td or Tdap) due on 01/26/2022 INFLUENZA(1) due on 04/03/2022 DEPRESSION ASSESSMENT Never done MAMMOGRAM due on 10/11/2022 COLORECTAL CANCER SCREENING due on 06/06/2031 HIV SCREENING Completed PAP TESTING Discontinued HPV TESTING Discontinued Data reviewed Component Latest Ref Rng AND Units 09/26/2022 COVID 19 Result See comment Not detected Influenza A PCR Not Detected Not detected Influenza B PCR Not Detected Not detected Strep A (POCT) Negative Negative Procedural Control Valid Hughes Slide Test Negative (more content not included)... [facility] 09-26-2022 History of Present illness Narrative Chief Complaint Patient presents with: Sore Throat HPI Antoinette L Shankar is a 42 year old female who presents here today for sore throat x 5 days. Did have fever Thursday 101. Ear pain on the right. Lips have been peeling x 1 month. Has a history of mono when 15 years old feels like the same symptoms. Has an occasional cough non-productive. Had a mild headache earlier in the week. Feels slightly tired with decreased energy. No significant nasal discharge. No shortness of breath, wheezing, nausea, vomiting or diarrhea. Past medical history, appointments, medications, allergies reviewed. Previous Medical History PAST MEDICAL HISTORY Diagnosis Date Agoraphobia 07/31/2014 Anxiety 09/20/2013 Bipolar I disorder, most recent episode (or current) depressed, moderate 2005 this was diagnosed when she was on prescription RX-no current care Diarrhea History of depression 04/02/2006 History of drug abuse (HCC) 02/06/2016 Abused narcotic pills. Drug free since 02/07/2017, Did Rehab in [place] Impaired fasting glucose 10/28/2010 Incisional hernia 03/07/2016 Surgery, other elective 06/07/2015 right axilla excision - see scanned documents Tobacco abuse 10/15/2010 Previous Surgical History PAST SURGICAL HISTORY Procedure Laterality Date ABDOMINAL SURGERY HX APPENDECTOMY COLONOSCOPY FLX DX W/COLLJ SPEC WHEN PFRMD 10/21/2012 Colonoscopy COLONOSCOPY FLX DX W/COLLJ SPEC WHEN PFRMD 06/06/2021 ESOPHAGOGASTRODUODENOSCOPY TRANSORAL DIAGNOSTIC 01/2003 EGD ESOPHAGOGASTRODUODENOSCOPY TRANSORAL DIAGNOSTIC 10/21/2012 EGD HERNIA REPAIR HX 2005 Umbilicalx2 IMPLANT MESH OPN HERNIA RPR/DEBRIDEMENT CLOSURE 03/07/2016 INCISION & DRAINAGE ABSCESS SIMPLE/SINGLE 01/13,06/17 RIGHT AXILLA LAPAROSCOPY SURG CHOLECYSTECTOMY Cholecystectomy, lap PAST SURGICAL HISTORY OF franko john tubes removed REPAIR INCISIONAL HERNIA 03/07/2016 at umbilicus VAGINAL HYSTERECTOMY UTERUS 250 GM/< 01/2006 Hysterectomy, vaginal Family History FAMILY HISTORY Problem Relation Age of Onset None Mother Diabetes Father Headache Father Stroke Father Ischemic Heart Disease Father Lipids Father Hypertension Father Diabetes Maternal Grandfather Diabetes Maternal Uncle other (bladder cancer) Maternal Grandmother Patient Allergies ALLERGIES Allergen Reactions Toradol [Ketorolac * Hives Ultram [Tramadol Hc* Hives opioid abuse Zoloft [Sertraline] Other: See Comments Made her more jittery Current Medications Current Outpatient Medications on File Prior to Visit Medication Sig FLUoxetine (PROZAC) 10 mg capsule Take 1 capsule by mouth twice daily. estradiol (ESTRACE) 1 mg tablet Take 1 tablet by mouth once daily. No current facility-administered medications on file prior to visit. Social History Social History Tobacco Use Smoking status: Every Day Packs/day: 0.25 Years: 16.00 Pack years: 4.00 Types: Cigarettes Smokeless tobacco: Never Vaping Use Vaping Use: Never used Substance Use Topics Alcohol use: Never Comment: rare Drug use: No Comment: recovering prescription drug abuse- Vicodin, Percocet Review of Symptoms REVIEW OF SYSTEMS See HPI EXAM: BP 120/78 (BP Site: Right Arm, BP Position: Sitting, BP Cuff Size: Regular Adult) Pulse 68 Temp 36.4 C (97.5 F) (Tympanic) Resp 16 Wt 53.1 kg (117 lb) BMI 19.77 kg/m General Appearance: Well appearing, alert, in no acute distress, well-hydrated, well nourished.. Eyes: Anicteric sclera. Pupils are equally round and reactive to light. Extraocular movements are intact. . Ears: External ears, TM's normal, canals clear. Nose/Sinuses: Nares normal, septum midline, mucosa normal, no sinus tenderness. Slight clear mucus. Oropharynx: Lips, mucosa, and tongue normal, teeth and gums normal, oropharynx normal. Neck: Supple, no adenopathy; thyroid symmetric, normal size, no bruits. Gland on the left slightly enlarged and slightly tender. Lungs: Lungs clear to auscultation. No wheezing, rhonchi, rales.. Heart: RRR without murmur, gallop, or rubs. No ectopy. Health Maintenance List HEPATITIS B(1 of 3 - 3-dose series) Never done COVID-19 VACCINE(1) Never done PNEUMOCOCCAL(1 - PCV) Never done HEPATITIS C SCREENING Never done DTAP,TDAP,TD(2 - Td or Tdap) due on 01/26/2022 INFLUENZA(1) due on 04/03/2022 DEPRESSION ASSESSMENT Never done MAMMOGRAM due on 10/11/2022 COLORECTAL CANCER SCREENING due on 06/06/2031 HIV SCREENING Completed PAP TESTING Discontinued HPV TESTING Discontinued Data reviewed Component Latest Ref Rng & Units 09/26/2022 COVID 19 Result See comment Not detected Influenza A PCR Not Detected Not detected Influenza B PCR Not Detected Not detected Strep A (POCT) Negative Negative Procedural Control Valid Hughes Slide Test Negative Negative A/P ASSESSMENT/PLAN: 1. Viral illness - ICD9: 079.99, ICD10: B34.9 (primary diagnosis) - Discussed viral etiology and rationale for treatment. - Symptomatic treatment with prn analgesia - Supportive care with fluids and rest - COVID WITH FLUA+B, ROUTINE 2. Pharyngitis, unspecified etiology - ICD9: 462, ICD10: J02.9 - Rapid Strep negative in the office today 3. Suspected COVID-19 virus infection - ICD9: V01.79, ICD10: Z20.822 Check - COVID WITH FLUA+B, ROUTINE 4. Fatigue, unspecified type - ICD9: 780.79, ICD10: R53.83 Check - MONOTEST, INFECTIOUS MONO - CBC + DIFF - COMP METABOLIC PANEL - TSH BLD 5. Impaired fasting glucose - ICD9: 790.21, ICD10: R73.01 Check - HGB A1C 6. Encounter for lipid screening for cardiovascular disease - ICD9: V77.91, V81.2, ICD10: Z13.220, Z13.6 Check - LIPID PANEL, NONFASTING F/u in near future for VIOLETTE Davida Hollis MD documented in this encounter [facility] 08-11-2022 Note HNO ID: [id number] Author: Kristy Bates PA-C Service: ? Author Type: Physician Plate Preparer Type: Progress Notes Filed: 08/11/2022 10:00 AM Note Text: Chief Complaint Patient presents with: Ankle Pain: LT x 6 days HPI November Shankar is a 42 year old female who presents here today for Above Complaints.. Patient states that she started to feel pain in left ankle about 1 week ago. 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 Patient has iced and used NSAIDS. Pain is on the outside. Pain is worse with twisting or squating. No consistent radiating pain. Past medical history, appointments, medications, allergies reviewed. Previous Medical History PAST MEDICAL HISTORY Diagnosis Date Agoraphobia 07/31/2014 Anxiety 09/20/2013 Bipolar I disorder, most recent episode (or current) depressed, moderate 2005 this was diagnosed when she was on prescription RX-no current care Diarrhea History of depression 04/02/2006 History of drug abuse (HCC) 02/06/2016 Abused narcotic pills. Drug free since 02/07/2017, Did Rehab in [place] Impaired fasting glucose 10/28/2010 Incisional hernia 03/07/2016 Surgery, other elective 06/07/2015 right axilla excision - see scanned documents Tobacco abuse 10/15/2010 Previous Surgical History PAST SURGICAL HISTORY Procedure Laterality Date ABDOMINAL SURGERY HX APPENDECTOMY COLONOSCOPY FLX DX W/COLLJ SPEC WHEN PFRMD 10/21/2012 Colonoscopy COLONOSCOPY FLX DX W/COLLJ SPEC WHEN PFRMD 06/06/2021 ESOPHAGOGASTRODUODENOSCOPY TRANSORAL DIAGNOSTIC 01/2003 EGD ESOPHAGOGASTRODUODENOSCOPY TRANSORAL DIAGNOSTIC 10/21/2012 EGD HERNIA REPAIR HX 2005 Umbilicalx2 IMPLANT MESH OPN HERNIA RPR/DEBRIDEMENT CLOSURE 03/07/2016 INCISION AND DRAINAGE ABSCESS SIMPLE/SINGLE 01/13,06/17 RIGHT AXILLA LAPAROSCOPY SURG CHOLECYSTECTOMY Cholecystectomy, lap PAST SURGICAL HISTORY OF franko john tubes removed REPAIR INCISIONAL HERNIA 03/07/2016 at umbilicus VAGINAL HYSTERECTOMY UTERUS 250 GM/< 01/2006 Hysterectomy, vaginal Family History FAMILY HISTORY Problem Relation Age of Onset None Mother Diabetes Father Headache Father Stroke Father Ischemic Heart Disease Father Lipids Father Hypertension Father Diabetes Maternal Grandfather Diabetes Maternal Uncle other (bladder cancer) Maternal Grandmother Patient Allergies ALLERGIES Allergen Reactions Toradol [Ketorolac * Hives Ultram [Tramadol Hc* Hives opioid abuse Zoloft [Sertraline] Other: See Comments Made her more jittery Current Medications Current Outpatient Medications on File Prior to Visit Medication Sig FLUoxetine (PROZAC) 10 mg capsule Take 1 capsule by mouth twice daily. estradiol (ESTRACE) 1 mg tablet Take 1 tablet by mouth once daily. No current facility-administered medications on file prior to visit. Social History Social History Tobacco Use Smoking status: Every Day Packs/day: 0.25 Years: 16.00 Pack years: 4.00 Types: Cigarettes Smokeless tobacco: Never Vaping Use Vaping Use: Never used Substance Use Topics Alcohol use: Never Comment: rare Drug use: No Comment: recovering prescription drug abuse- Vicodin, Percocet Review of Symptoms REVIEW OF SYSTEMS See hpi EXAM: BP 122/80 Pulse 88 Resp 16 Wt 52.6 kg (116 lb) BMI 19.60 kg/m? General Appearance: Well appearing, alert, in no acute distress, well-hydrated, well nourished.. Musculoskeletal: Left ankle with decreased ROM. Pain with medial rotation and plantar flexion. Mild Soft tissue swelling noted. NVI.. Health Maintenance List HEPATITIS B(1 of 3 - 3-dose series) Never done COVID-19 VACCINE(1) Never done PNEUMOCOCCAL(1 - PCV) Never done HEPATITIS C SCREENING Never done DTAP,TDAP,TD(2 - Td or Tdap) due on 01/26/2022 INFLUENZA(1) due on 04/03/2022 DEPRESSION ASSESSMENT Never done MAMMOGRAM due on 10/11/2022 COLORECTAL CANCER SCREENING due on 06/06/2031 HIV SCREENING Completed PAP TESTING Discontinued HPV TESTING Discontinued Data reviewed N/a ASSESSMENT/PLAN: 1. Sprain of ligament of left ankle, initial encounter - ICD9: 845.00, ICD10: S93.402A Discussed xray option- patient declines. Continue Compression, elevation and Ice prn. Placed patient is stirrup splint to help with day to day movement. But advised patient to do light stretching exercises and ROM activity as able. Follow up if not improving over next 1-2 weeks. Kristy Bates PA-C [facility] 08-11-2022 History of Present illness Narrative Chief Complaint Patient presents with: Ankle Pain: LT x 6 days HPI November L Shankar is a 42 year old female who presents here today for Above Complaints.. Patient states that she started to feel pain in left ankle about 1 week ago. 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 Patient has iced and used NSAIDS. Pain is on the outside. Pain is worse with twisting or squating. No consistent radiating pain. Past medical history, appointments, medications, allergies reviewed. Previous Medical History PAST MEDICAL HISTORY Diagnosis Date Agoraphobia 07/31/2014 Anxiety 09/20/2013 Bipolar I disorder, most recent episode (or current) depressed, moderate 2005 this was diagnosed when she was on prescription RX-no current care Diarrhea History of depression 04/02/2006 History of drug abuse (HCC) 02/06/2016 Abused narcotic pills. Drug free since 02/07/2017, Did Rehab in [place] Impaired fasting glucose 10/28/2010 Incisional hernia 03/07/2016 Surgery, other elective 06/07/2015 right axilla excision - see scanned documents Tobacco abuse 10/15/2010 Previous Surgical History PAST SURGICAL HISTORY Procedure Laterality Date ABDOMINAL SURGERY HX APPENDECTOMY COLONOSCOPY FLX DX W/COLLJ SPEC WHEN PFRMD 10/21/2012 Colonoscopy COLONOSCOPY FLX DX W/COLLJ SPEC WHEN PFRMD 06/06/2021 ESOPHAGOGASTRODUODENOSCOPY TRANSORAL DIAGNOSTIC 01/2003 EGD ESOPHAGOGASTRODUODENOSCOPY TRANSORAL DIAGNOSTIC 10/21/2012 EGD HERNIA REPAIR HX 2006 Umbilicalx2 IMPLANT MESH OPN HERNIA RPR/DEBRIDEMENT CLOSURE 03/07/2016 INCISION & DRAINAGE ABSCESS SIMPLE/SINGLE 01/13,06/17 RIGHT AXILLA LAPAROSCOPY SURG CHOLECYSTECTOMY Cholecystectomy, lap PAST SURGICAL HISTORY OF franko john tubes removed REPAIR INCISIONAL HERNIA 03/07/2016 at umbilicus VAGINAL HYSTERECTOMY UTERUS 250 GM/< 01/2006 Hysterectomy, vaginal Family History FAMILY HISTORY Problem Relation Age of Onset None Mother Diabetes Father Headache Father Stroke Father Ischemic Heart Disease Father Lipids Father Hypertension Father Diabetes Maternal Grandfather Diabetes Maternal Uncle other (bladder cancer) Maternal Grandmother Patient Allergies ALLERGIES Allergen Reactions Toradol [Ketorolac * Hives Ultram [Tramadol Hc* Hives opioid abuse Zoloft [Sertraline] Other: See Comments Made her more jittery Current Medications Current Outpatient Medications on File Prior to Visit Medication Sig FLUoxetine (PROZAC) 10 mg capsule Take 1 capsule by mouth twice daily. estradiol (ESTRACE) 1 mg tablet Take 1 tablet by mouth once daily. No current facility-administered medications on file prior to visit. Social History Social History Tobacco Use Smoking status: Every Day Packs/day: 0.25 Years: 16.00 Pack years: 4.00 Types: Cigarettes Smokeless tobacco: Never Vaping Use Vaping Use: Never used Substance Use Topics Alcohol use: Never Comment: rare Drug use: No Comment: recovering prescription drug abuse- Vicodin, Percocet Review of Symptoms REVIEW OF SYSTEMS See hpi EXAM: BP 122/80 Pulse 88 Resp 16 Wt 52.6 kg (116 lb) BMI 19.60 kg/m General Appearance: Well appearing, alert, in no acute distress, well-hydrated, well nourished.. Musculoskeletal: Left ankle with decreased ROM. Pain with medial rotation and plantar flexion. Mild Soft tissue swelling noted. NVI.. Health Maintenance List HEPATITIS B(1 of 3 - 3-dose series) Never done COVID-19 VACCINE(1) Never done PNEUMOCOCCAL(1 - PCV) Never done HEPATITIS C SCREENING Never done DTAP,TDAP,TD(2 - Td or Tdap) due on 01/26/2022 INFLUENZA(1) due on 04/03/2022 DEPRESSION ASSESSMENT Never done MAMMOGRAM due on 10/11/2022 COLORECTAL CANCER SCREENING due on 06/06/2031 HIV SCREENING Completed PAP TESTING Discontinued HPV TESTING Discontinued Data reviewed N/a ASSESSMENT/PLAN: 1. Sprain of ligament of left ankle, initial encounter - ICD9: 845.00, ICD10: S93.402A Discussed xray option- patient declines. Continue Compression, elevation and Ice prn. Placed patient is stirrup splint to help with day to day movement. But advised patient to do light stretching exercises and ROM activity as able. Follow up if not improving over next 1-2 weeks. Kristy Bates PA-C documented in this encounter [facility] 07-23-2022 Miscellaneous Notes The following approved medication requests have been transmitted electronically. Requested Prescriptions Signed Prescriptions Disp Refills FLUoxetine (PROZAC) 10 mg capsule 60 capsule 5 Sig: Take 1 capsule by mouth twice daily. Authorizing Provider: DAVIDA HOLLIS MD Patient has been identified by name and date of : Yes Requested Prescriptions Pending Prescriptions Disp Refills FLUoxetine (PROZAC) 10 mg capsule 60 capsule 5 Sig: Take 1 capsule by mouth twice daily. RX INSTRUCTIONS: Patient aware RX will be sent to pharmacy. No need to notify patient. Magda Peck MA Justyna: 03/2022 Nov: 09/2022 Last refill; 01/2022 Patient has been identified by name and date of : Yes Patient and pharmacy phones/faxed request for refill(s): Requested Prescriptions Pending Prescriptions Disp Refills FLUoxetine (PROZAC) 10 mg capsule 60 capsule 5 Sig: Take 1 capsule by mouth twice daily. Date of last office visit in primary care: 03/14/22 Last 2 Encounter Wt Readings: Date: Wt: 03/14/2022 51.3 kg (113 lb) 11/12/2021 52.3 kg (115 lb 3.2 oz) Previous labs/tests for medication: Not applicable Please advise. Thank you. Britt Lao documented in this encounter [facility] 03-28-2022 History of Present illness Narrative ER Summary and x-ray. Pt has appointment with you 04/04/22. Hiral Lundy LPN Scan on 03/28/2022 11:55 AM by External Provider: Consultation - Emergency Medicine Scan on 03/28/2022 11:59 AM by External Provider: X-ray documented in this encounter [facility] 03-14-2022 History of Present illness Narrative Chief Complaint Patient presents with: Follow Up: anxiety HPI Antoinette Damon is a 41 year old female who presents here today for Follow up on medication. Patient with known Hx of anxiety and has been doing very well on the prozac. Sleeps well. Her stomach issues maria a to be stress related. Past medical history, appointments, medications, allergies reviewed. Previous Medical History PAST MEDICAL HISTORY Diagnosis Date Agoraphobia 07/31/2014 Anxiety 09/20/2013 Bipolar I disorder, most recent episode (or current) depressed, moderate 2005 this was diagnosed when she was on prescription RX-no current care Diarrhea History of depression 04/02/2006 History of drug abuse ([facility]) 02/06/2016 Abused narcotic pills. Drug free since 02/07/2017, Did Rehab in [place] Impaired fasting glucose 10/28/2010 Incisional hernia 03/07/2016 Surgery, other elective 06/07/2015 right axilla excision - see scanned documents Tobacco abuse 10/15/2010 Previous Surgical History PAST SURGICAL HISTORY Procedure Laterality Date ABDOMINAL SURGERY HX APPENDECTOMY COLONOSCOPY FLX DX W/COLLJ SPEC WHEN PFRMD 10/21/2012 Colonoscopy COLONOSCOPY FLX DX W/COLLJ SPEC WHEN PFRMD 06/06/2021 ESOPHAGOGASTRODUODENOSCOPY TRANSORAL DIAGNOSTIC 01/2003 EGD ESOPHAGOGASTRODUODENOSCOPY TRANSORAL DIAGNOSTIC 10/21/2012 EGD HERNIA REPAIR HX 2005 Umbilicalx2 IMPLANT MESH OPN HERNIA RPR/DEBRIDEMENT CLOSURE 03/07/2016 INCISION & DRAINAGE ABSCESS SIMPLE/SINGLE 01/13,06/17 RIGHT AXILLA LAPAROSCOPY SURG CHOLECYSTECTOMY Cholecystectomy, lap PAST SURGICAL HISTORY OF franko john tubes removed REPAIR INCISIONAL HERNIA 03/07/2016 at umbilicus VAGINAL HYSTERECTOMY UTERUS 250 GM/< 01/2006 Hysterectomy, vaginal Family History FAMILY HISTORY Problem Relation Age of Onset None Mother Diabetes Father Headache Father Stroke Father Ischemic Heart Disease Father Lipids Father Hypertension Father Diabetes Maternal Grandfather Diabetes Maternal Uncle other (bladder cancer) Maternal Grandmother Patient Allergies ALLERGIES Allergen Reactions Toradol [Ketorolac * Hives Ultram [Tramadol Hc* Hives opioid abuse Zoloft [Sertraline] Other: See Comments Made her more jittery Current Medications Current Outpatient Medications on File Prior to Visit Medication Sig FLUoxetine (PROZAC) 10 mg capsule Take 1 capsule by mouth twice daily. melatonin 5 mg chew Take 1 tablet by mouth daily at bedtime. omeprazole (PRILOSEC) 40 mg capsule Take 1 capsule by mouth once daily. (Patient not taking: Reported on 11/12/2021 ) multivit-min/ferrous fumarate (MULTI VITAMIN ORAL) Take by mouth once daily. (Patient not taking: Reported on 11/12/2021 ) estradiol (ESTRACE) 1 mg tablet Take 1 tablet by mouth once daily. No current facility-administered medications on file prior to visit. Social History Social History Tobacco Use Smoking status: Every Day Packs/day: 0.25 Years: 16.00 Pack years: 4.00 Types: Cigarettes Smokeless tobacco: Never Vaping Use Vaping Use: Never used Substance Use Topics Alcohol use: Never Comment: rare Drug use: No Comment: recovering prescription drug abuse- Vicodin, Percocet Review of Symptoms REVIEW OF SYSTEMS See HPI EXAM: BP 108/64 (BP Site: Left Arm, BP Position: Sitting, BP Cuff Size: Regular Adult) Pulse 68 Wt 51.3 kg (113 lb) BMI 19.10 kg/m General Appearance: Well appearing, alert, in no acute distress, well-hydrated, well nourished.. Lungs: Lungs clear to auscultation. No wheezing, rhonchi, rales.. Heart: RRR without murmur, gallop, or rubs. No ectopy. Psych: mood and affect were good.. Health Maintenance List HEPATITIS B(1 of 3 - 3-dose series) Never done COVID-19 VACCINE(1) Never done PNEUMOCOCCAL(1 - PCV) Never done HEPATITIS C SCREENING Never done DTAP,TDAP,TD(2 - Td or Tdap) due on 01/26/2022 INFLUENZA(1) due on 04/03/2022 MAMMOGRAM due on 10/11/2022 COLORECTAL CANCER SCREENING due on 06/06/2031 HIV SCREENING Completed PAP TESTING Discontinued HPV TESTING Discontinued DEPRESSION SCREENING Discontinued Data reviewed A/P ASSESSMENT/PLAN: 1. Anxiety - ICD9: 300.00, ICD10: F41.9 - cont Prozac at 10 mg a day F/u 6 months WAE Davida Hollis MD documented in this encounter [facility] 12-18-2021 Miscellaneous Notes Noted. Pt states she has bumps on her buttocks, states she has had this issue in the past. Appt was offered to pt for tomorrow 12/18/21 but pt declined since appt was not with her pcp. Pt states she will go to [facility] tomorrow to be checked. Zamzam Epperson LPN documented in this encounter [facility] documented as of this encounter (statuses as of 12/18/2021) [facility] History of Past illness Narrative* Problem Noted Date Resolved Date Abdominal pain 12/11/2016 06/06/2021 Breast pain, right 12/12/2015 02/06/2016 Disruption of external surgical wound 09/26/2015 02/06/2016 Crush injury of right foot 03/13/201407/31 Open wound of axillary region 03/24/2013 Abscess of anal and rectal regions 01/06/2013 09/20/2013 Perioral dermatitis 11/10/2012 02/06/2016 Diarrhea 10/21/2012 06/06/2021 Irritant dermatitis: eyelids 09/07/201101/2016 Acne Vulgaris: Grade III to IV inflammatory: face--Nodulocystic//Scarring 03/28/2010 02/06/2016 Lymphadenopathy 06/15/2009 09/20/2013 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, lumbar region 07/05/2008 09/20/2013 Symptomatic menopausal or female climacteric sta esperanza 03/06/2008 02/06/2016 Umbilical hernia without mention of obstruction or gangrene 06/10/2006 09/20/2013 Underweight 10/13/2005 02/06/2016 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 08/19/2005 07/10/2014 NEURALGIA 07/31/2005 09/20/2013 Other syndromes affecting cervical region 200302/06/2016 Headache(784.0) 02/28/2004 09/20/2013 documented as of this encounter (statuses as of 03/14/2022) [facility] History of Past illness Narrative* Problem Noted Date Resolved Date Abdominal pain 12/11/2016 06/06/2021 Breast pain, right 12/12/2015 02/06/2016 Disruption of external surgical wound 09/26/2015 02/06/2016 Crush injury of right foot 03/13/201407/31 Open wound of axillary region 03/24/2013 Abscess of anal and rectal regions 01/06/2013 09/20/2013 Perioral dermatitis 11/10/2012 02/06/2016 Diarrhea 10/21/2012 06/06/2021 Irritant dermatitis: eyelids 09/07/201101/2016 Acne Vulgaris: Grade III to IV inflammatory: face--Nodulocystic//Scarring 03/28/2010 02/06/2016 Lymphadenopathy 06/15/2009 09/20/2013 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, lumbar region 07/05/2008 09/20/2013 Symptomatic menopausal or female climacteric sta esperanza 03/06/2008 02/06/2016 Umbilical hernia without mention of obstruction or gangrene 06/10/2006 09/20/2013 Underweight 10/13/2005 02/06/2016 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 08/19/2005 07/10/2014 NEURALGIA 07/31/2005 09/20/2013 Other syndromes affecting cervical region 200302/06/2016 Headache(784.0) 02/28/2004 09/20/2013 documented as of this encounter (statuses as of 03/28/2022) [facility] History of Past illness Narrative* Problem Noted Date Resolved Date Abdominal pain 12/11/2016 06/06/2021 Breast pain, right 12/12/2015 02/06/2016 Disruption of external surgical wound 09/26/2015 02/06/2016 Crush injury of right foot 03/13/201407/31 Open wound of axillary region 03/24/2013 Abscess of anal and rectal regions 01/06/2013 09/20/2013 Perioral dermatitis 11/10/2012 02/06/2016 Diarrhea 10/21/2012 06/06/2021 Irritant dermatitis: eyelids 09/07/201101/2016 Acne Vulgaris: Grade III to IV inflammatory: face--Nodulocystic//Scarring 03/28/2010 02/06/2016 Lymphadenopathy 06/15/2009 09/20/2013 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, lumbar region 07/05/2008 09/20/2013 Symptomatic menopausal or female climacteric sta esperanza 03/06/2008 02/06/2016 Umbilical hernia without mention of obstruction or gangrene 06/10/2006 09/20/2013 Underweight 10/13/2005 02/06/2016 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 08/19/2005 07/10/2014 NEURALGIA 07/31/2005 09/20/2013 Other syndromes affecting cervical region 200302/06/2016 Headache(784.0) 02/28/2004 09/20/2013 documented as of this encounter (statuses as of 07/23/2022) [facility] History of Past illness Narrative* Problem Noted Date Resolved Date Abdominal pain 12/11/2016 06/06/2021 Breast pain, right 12/12/2015 02/06/2016 Disruption of external surgical wound 09/26/2015 02/06/2016 Crush injury of right foot 03/13/201407/31 Open wound of axillary region 03/24/2013 Abscess of anal and rectal regions 01/06/2013 09/20/2013 Perioral dermatitis 11/10/2012 02/06/2016 Diarrhea 10/21/2012 06/06/2021 Irritant dermatitis: eyelids 09/07/201101/2016 Acne Vulgaris: Grade III to IV inflammatory: face--Nodulocystic//Scarring 03/28/2010 02/06/2016 Lymphadenopathy 06/15/2009 09/20/2013 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, lumbar region 07/05/2008 09/20/2013 Symptomatic menopausal or female climacteric sta esperanza 03/06/2008 02/06/2016 Umbilical hernia without mention of obstruction or gangrene 06/10/2006 09/20/2013 Underweight 10/13/2005 02/06/2016 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 08/19/2005 07/10/2014 NEURALGIA 07/31/2005 09/20/2013 Other syndromes affecting cervical region 200302/06/2016 Headache(784.0) 02/28/2004 09/20/2013 documented as of this encounter (statuses as of 08/11/2022) [facility] History of Past illness Narrative* Problem Noted Date Resolved Date Abdominal pain 12/11/2016 06/06/2021 Breast pain, right 12/12/2015 02/06/2016 Disruption of external surgical wound 09/26/2015 02/06/2016 Crush injury of right foot 03/13/201407/31 Open wound of axillary region 03/24/2013 Abscess of anal and rectal regions 01/06/2013 09/20/2013 Perioral dermatitis 11/10/2012 02/06/2016 Diarrhea 10/21/2012 06/06/2021 Irritant dermatitis: eyelids 09/07/201101/2016 Acne Vulgaris: Grade III to IV inflammatory: face--Nodulocystic//Scarring 03/28/2010 02/06/2016 Lymphadenopathy 06/15/2009 09/20/2013 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, lumbar region 07/05/2008 09/20/2013 Symptomatic menopausal or female climacteric sta esperanza 03/06/2008 02/06/2016 Umbilical hernia without mention of obstruction or gangrene 06/10/2006 09/20/2013 Underweight 10/13/2005 02/06/2016 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 08/19/2005 07/10/2014 NEURALGIA 07/31/2005 09/20/2013 Other syndromes affecting cervical region 200302/06/2016 Headache(784.0) 02/28/2004 09/20/2013 documented as of this encounter (statuses as of 09/27/2022) [facility] History of Past illness Narrative* Problem Noted Date Resolved Date Abdominal pain 12/11/2016 06/06/2021 Breast pain, right 12/12/2015 02/06/2016 Disruption of external surgical wound 09/26/2015 02/06/2016 Crush injury of right foot 03/13/201407/31 Open wound of axillary region 03/24/2013 Abscess of anal and rectal regions 01/06/2013 09/20/2013 Perioral dermatitis 11/10/2012 02/06/2016 Diarrhea 10/21/2012 06/06/2021 Irritant dermatitis: eyelids 09/07/201101/2016 Acne Vulgaris: Grade III to IV inflammatory: face--Nodulocystic//Scarring 03/28/2010 02/06/2016 Lymphadenopathy 06/15/2009 09/20/2013 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, lumbar region 07/05/2008 09/20/2013 Symptomatic menopausal or female climacteric sta esperanza 03/06/2008 02/06/2016 Umbilical hernia without mention of obstruction or gangrene 06/10/2006 09/20/2013 Underweight 10/13/2005 02/06/2016 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 08/19/2005 07/10/2014 NEURALGIA 07/31/2005 09/20/2013 Other syndromes affecting cervical region 200302/06/2016 Headache(784.0) 02/28/2004 09/20/2013 documented as of this encounter (statuses as of 09/27/2022) [facility] History of Past illness Narrative* Problem Noted Date Resolved Date Abdominal pain 12/11/2016 06/06/2021 Breast pain, right 12/12/2015 02/06/2016 Disruption of external surgical wound 09/26/2015 02/06/2016 Crush injury of right foot 03/13/201407/31 Open wound of axillary region 03/24/2013 Abscess of anal and rectal regions 01/06/2013 09/20/2013 Perioral dermatitis 11/10/2012 02/06/2016 Diarrhea 10/21/2012 06/06/2021 Irritant dermatitis: eyelids 09/07/201101/2016 Acne Vulgaris: Grade III to IV inflammatory: face--Nodulocystic//Scarring 03/28/2010 02/06/2016 Lymphadenopathy 06/15/2009 09/20/2013 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, lumbar region 07/05/2008 09/20/2013 Symptomatic menopausal or female climacteric sta esperanza 03/06/2008 02/06/2016 Umbilical hernia without mention of obstruction or gangrene 06/10/2006 09/20/2013 Underweight 10/13/2005 02/06/2016 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 08/19/2005 07/10/2014 NEURALGIA 07/31/2005 09/20/2013 Other syndromes affecting cervical region 200302/06/2016 Headache(784.0) 02/28/2004 09/20/2013 documented as of this encounter (statuses as of 10/24/2022) [facility] History of Past illness Narrative* Problem Noted Date Resolved Date Abdominal pain 12/11/2016 06/06/2021 Breast pain, right 12/12/2015 02/06/2016 Disruption of external surgical wound 09/26/2015 02/06/2016 Crush injury of right foot 03/13/201407/31 Open wound of axillary region 03/24/2013 Abscess of anal and rectal regions 01/06/2013 09/20/2013 Perioral dermatitis 11/10/2012 02/06/2016 Diarrhea 10/21/2012 06/06/2021 Irritant dermatitis: eyelids 09/07/201101/2016 Acne Vulgaris: Grade III to IV inflammatory: face--Nodulocystic//Scarring 03/28/2010 02/06/2016 Lymphadenopathy 06/15/2009 09/20/2013 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, lumbar region 07/05/2008 09/20/2013 Symptomatic menopausal or female climacteric sta esperanza 03/06/2008 02/06/2016 Umbilical hernia without mention of obstruction or gangrene 06/10/2006 09/20/2013 Underweight 10/13/2005 02/06/2016 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 08/19/2005 07/10/2014 NEURALGIA 07/31/2005 09/20/2013 Other syndromes affecting cervical region 200302/06/2016 Headache(784.0) 02/28/2004 09/20/2013 documented as of this encounter (statuses as of 10/28/2022) [facility] History of Past illness Narrative* Problem Noted Date Resolved Date Abdominal pain 12/11/2016 06/06/2021 Breast pain, right 12/12/2015 02/06/2016 Disruption of external surgical wound 09/26/2015 02/06/2016 Crush injury of right foot 03/13/201407/31 Open wound of axillary region 03/24/2013 Abscess of anal and rectal regions 01/06/2013 09/20/2013 Perioral dermatitis 11/10/2012 02/06/2016 Diarrhea 10/21/2012 06/06/2021 Irritant dermatitis: eyelids 09/07/201101/2016 Acne Vulgaris: Grade III to IV inflammatory: face--Nodulocystic//Scarring 03/28/2010 02/06/2016 Lymphadenopathy 06/15/2009 09/20/2013 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, lumbar region 07/05/2008 09/20/2013 Symptomatic menopausal or female climacteric sta esperanza 03/06/2008 02/06/2016 Umbilical hernia without mention of obstruction or gangrene 06/10/2006 09/20/2013 Underweight 10/13/2005 02/06/2016 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 08/19/2005 07/10/2014 NEURALGIA 07/31/2005 09/20/2013 Other syndromes affecting cervical region 200302/06/2016 Headache(784.0) 02/28/2004 09/20/2013 documented as of this encounter (statuses as of 11/06/2022) [facility] History of Past illness Narrative* Problem Noted Date Resolved Date Abdominal pain 12/11/2016 06/06/2021 Breast pain, right 12/12/2015 02/06/2016 Disruption of external surgical wound 09/26/2015 02/06/2016 Crush injury of right foot 03/13/201407/31 Open wound of axillary region 03/24/2013 Abscess of anal and rectal regions 01/06/2013 09/20/2013 Perioral dermatitis 11/10/2012 02/06/2016 Diarrhea 10/21/2012 06/06/2021 Irritant dermatitis: eyelids 09/07/201101/2016 Acne Vulgaris: Grade III to IV inflammatory: face--Nodulocystic//Scarring 03/28/2010 02/06/2016 Lymphadenopathy 06/15/2009 09/20/2013 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, lumbar region 07/05/2008 09/20/2013 Symptomatic menopausal or female climacteric sta esperanza 03/06/2008 02/06/2016 Umbilical hernia without mention of obstruction or gangrene 06/10/2006 09/20/2013 Underweight 10/13/2005 02/06/2016 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 08/19/2005 07/10/2014 NEURALGIA 07/31/2005 09/20/2013 Other syndromes affecting cervical region 200302/06/2016 Headache(784.0) 02/28/2004 09/20/2013 documented as of this encounter (statuses as of 11/07/2022) [facility] History of Past illness Narrative* Problem Noted Date Resolved Date Abdominal pain 12/11/2016 06/06/2021 Breast pain, right 12/12/2015 02/06/2016 Disruption of external surgical wound 09/26/2015 02/06/2016 Crush injury of right foot 03/13/201407/31 Open wound of axillary region 03/24/2013 Abscess of anal and rectal regions 01/06/2013 09/20/2013 Perioral dermatitis 11/10/2012 02/06/2016 Diarrhea 10/21/2012 06/06/2021 Irritant dermatitis: eyelids 09/07/201101/2016 Acne Vulgaris: Grade III to IV inflammatory: face--Nodulocystic//Scarring 03/28/2010 02/06/2016 Lymphadenopathy 06/15/2009 09/20/2013 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, lumbar region 07/05/2008 09/20/2013 Symptomatic menopausal or female climacteric sta esperanza 03/06/2008 02/06/2016 Umbilical hernia without mention of obstruction or gangrene 06/10/2006 09/20/2013 Underweight 10/13/2005 02/06/2016 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 08/19/2005 07/10/2014 NEURALGIA 07/31/2005 09/20/2013 Other syndromes affecting cervical region 200302/06/2016 Headache(784.0) 02/28/2004 09/20/2013 documented as of this encounter (statuses as of 11/10/2022) [facility] History of Past illness Narrative* Problem Noted Date Resolved Date Abdominal pain 12/11/2016 06/06/2021 Breast pain, right 12/12/2015 02/06/2016 Disruption of external surgical wound 09/26/2015 02/06/2016 Crush injury of right foot 03/13/201407/31 Open wound of axillary region 03/24/2013 Abscess of anal and rectal regions 01/06/2013 09/20/2013 Perioral dermatitis 11/10/2012 02/06/2016 Diarrhea 10/21/2012 06/06/2021 Irritant dermatitis: eyelids 09/07/201101/2016 Acne Vulgaris: Grade III to IV inflammatory: face--Nodulocystic//Scarring 03/28/2010 02/06/2016 Lymphadenopathy 06/15/2009 09/20/2013 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, lumbar region 07/05/2008 09/20/2013 Symptomatic menopausal or female climacteric sta esperanza 03/06/2008 02/06/2016 Umbilical hernia without mention of obstruction or gangrene 06/10/2006 09/20/2013 Underweight 10/13/2005 02/06/2016 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 08/19/2005 07/10/2014 NEURALGIA 07/31/2005 09/20/2013 Other syndromes affecting cervical region 200302/06/2016 Headache(784.0) 02/28/2004 09/20/2013 documented as of this encounter (statuses as of 11/14/2022) [facility] History of Past illness Narrative* Problem Noted Date Resolved Date Abdominal pain 12/11/2016 06/06/2021 Breast pain, right 12/12/2015 02/06/2016 Disruption of external surgical wound 09/26/2015 02/06/2016 Crush injury of right foot 03/13/201407/31 Open wound of axillary region 03/24/2013 Abscess of anal and rectal regions 01/06/2013 09/20/2013 Perioral dermatitis 11/10/2012 02/06/2016 Diarrhea 10/21/2012 06/06/2021 Irritant dermatitis: eyelids 09/07/201101/2016 Acne Vulgaris: Grade III to IV inflammatory: face--Nodulocystic//Scarring 03/28/2010 02/06/2016 Lymphadenopathy 06/15/2009 09/20/2013 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, lumbar region 07/05/2008 09/20/2013 Symptomatic menopausal or female climacteric sta esperanza 03/06/2008 02/06/2016 Umbilical hernia without mention of obstruction or gangrene 06/10/2006 09/20/2013 Underweight 10/13/2005 02/06/2016 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 08/19/2005 07/10/2014 NEURALGIA 07/31/2005 09/20/2013 Other syndromes affecting cervical region 200302/06/2016 Headache(784.0) 02/28/2004 09/20/2013 documented as of this encounter (statuses as of 11/24/2022) [facility] History of Past illness Narrative* Problem Noted Date Resolved Date Abdominal pain 12/11/2016 06/06/2021 Breast pain, right 12/12/2015 02/06/2016 Disruption of external surgical wound 09/26/2015 02/06/2016 Crush injury of right foot 03/13/201407/31 Open wound of axillary region 03/24/2013 Abscess of anal and rectal regions 01/06/2013 09/20/2013 Perioral dermatitis 11/10/2012 02/06/2016 Diarrhea 10/21/2012 06/06/2021 Irritant dermatitis: eyelids 09/07/201101/2016 Acne Vulgaris: Grade III to IV inflammatory: face--Nodulocystic//Scarring 03/28/2010 02/06/2016 Lymphadenopathy 06/15/2009 09/20/2013 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, lumbar region 07/05/2008 09/20/2013 Symptomatic menopausal or female climacteric sta esperanza 03/06/2008 02/06/2016 Umbilical hernia without mention of obstruction or gangrene 06/10/2006 09/20/2013 Underweight 10/13/2005 02/06/2016 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 08/19/2005 07/10/2014 NEURALGIA 07/31/2005 09/20/2013 Other syndromes affecting cervical region 200302/06/2016 Headache(784.0) 02/28/2004 09/20/2013 documented as of this encounter (statuses as of 12/04/2022) [facility] History of Past illness Narrative* Problem Noted Date Resolved Date Abdominal pain 12/11/2016 06/06/2021 Breast pain, right 12/12/2015 02/06/2016 Disruption of external surgical wound 09/26/2015 02/06/2016 Crush injury of right foot 03/13/201407/31 Open wound of axillary region 03/24/2013 Abscess of anal and rectal regions 01/06/2013 09/20/2013 Perioral dermatitis 11/10/2012 02/06/2016 Diarrhea 10/21/2012 06/06/2021 Irritant dermatitis: eyelids 09/07/201101/2016 Acne Vulgaris: Grade III to IV inflammatory: face--Nodulocystic//Scarring 03/28/2010 02/06/2016 Lymphadenopathy 06/15/2009 09/20/2013 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, lumbar region 07/05/2008 09/20/2013 Symptomatic menopausal or female climacteric sta esperanza 03/06/2008 02/06/2016 Umbilical hernia without mention of obstruction or gangrene 06/10/2006 09/20/2013 Underweight 10/13/2005 02/06/2016 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 08/19/2005 07/10/2014 NEURALGIA 07/31/2005 09/20/2013 Other syndromes affecting cervical region 200302/06/2016 Headache(784.0) 02/28/2004 09/20/2013 documented as of this encounter (statuses as of 12/16/2022) [facility] History of Past illness Narrative* Problem Noted Date Resolved Date Abdominal pain 12/11/2016 06/06/2021 Breast pain, right 12/12/2015 02/06/2016 Disruption of external surgical wound 09/26/2015 02/06/2016 Crush injury of right foot 03/13/201407/31 Open wound of axillary region 03/24/2013 Abscess of anal and rectal regions 01/06/2013 09/20/2013 Perioral dermatitis 11/10/2012 02/06/2016 Diarrhea 10/21/2012 06/06/2021 Irritant dermatitis: eyelids 09/07/201101/2016 Acne Vulgaris: Grade III to IV inflammatory: face--Nodulocystic//Scarring 03/28/2010 02/06/2016 Lymphadenopathy 06/15/2009 09/20/2013 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, lumbar region 07/05/2008 09/20/2013 Symptomatic menopausal or female climacteric sta esperanza 03/06/2008 02/06/2016 Umbilical hernia without mention of obstruction or gangrene 06/10/2006 09/20/2013 Underweight 10/13/2005 02/06/2016 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 08/19/2005 07/10/2014 NEURALGIA 07/31/2005 09/20/2013 Other syndromes affecting cervical region 200302/06/2016 Headache(784.0) 02/28/2004 09/20/2013 documented as of this encounter (statuses as of 01/02/2023) [facility] History of Past illness Narrative* Problem Noted Date Diagnosed Date Resolved Date Abdominal pain 12/11/2016 06/06/2021 Breast pain, right 12/12/2015 6 Disruption of external surgical wound 09/26/2015 02/06/2016 Crush injury of right foot 03/13/2014 1 Open wound of axillary region 03/24/2013 09/20/2013 Abscess of anal and rectal regions 01/06/2013 09/20/2013 Perioral dermatitis 11/10/2012 02/06/20 16 Diarrhea 10/21/2012 06/06/2021 Irritant dermatitis: eyelids 09/07/2011 02/06/2016 Acne Vulgaris: Grade III to IV inflammatory: face--Nodulocystic//Scarring 03/28/2010 02/06/2016 Lymphadenopathy 06/15/2009 09/20/2013 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, lumbar region 07/05/2008 09/20/2013 Symptomatic menopausal or fe male climacteric states 03/06/2008 02/06/2016 Umbilical hernia without men tion of obstruction or gangrene 06/10/2006 09/20/2013 Underweight 10/13/2005 02/06/2016 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 08/19/2005 07/10/20 14 NEURALGIA 07/31/2005 09/20/2013 Other syndromes affecting cervical region 02/28/2004 02/06/2016 Headache(784.0) 02/28/2004 09/20/2013 documented as of this encounter (statuses as of 04/18/2023) [facility] History of Past illness Narrative* Problem Noted Date Diagnosed Date Resolved Date Abdominal pain 12/11/2016 06/06/2021 Breast pain, right 12/12/2015 6 Disruption of external surgical wound 09/26/2015 02/06/2016 Crush injury of right foot 03/13/2014 1 Open wound of axillary region 03/24/2013 09/20/2013 Abscess of anal and rectal regions 01/06/2013 09/20/2013 Perioral dermatitis 11/10/2012 02/06/20 16 Diarrhea 10/21/2012 06/06/2021 Irritant dermatitis: eyelids 09/07/2011 02/06/2016 Acne Vulgaris: Grade III to IV inflammatory: face--Nodulocystic//Scarring 03/28/2010 02/06/2016 Lymphadenopathy 06/15/2009 09/20/2013 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, lumbar region 07/05/2008 09/20/2013 Symptomatic menopausal or fe male climacteric states 03/06/2008 02/06/2016 Umbilical hernia without men tion of obstruction or gangrene 06/10/2006 09/20/2013 Underweight 10/13/2005 02/06/2016 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 08/19/2005 07/10/20 14 NEURALGIA 07/31/2005 09/20/2013 Other syndromes affecting cervical region 02/28/2004 02/06/2016 Headache(784.0) 02/28/2004 09/20/2013 documented as of this encounter (statuses as of 06/02/2023) [facility] History of Past illness Narrative* Problem Noted Date Diagnosed Date Resolved Date Abdominal pain 12/11/2016 06/06/2021 Breast pain, right 12/12/2015 6 Disruption of external surgical wound 09/26/2015 02/06/2016 Crush injury of right foot 03/13/2014 1 Open wound of axillary region 03/24/2013 09/20/2013 Abscess of anal and rectal regions 01/06/2013 09/20/2013 Perioral dermatitis 11/10/2012 02/06/20 16 Diarrhea 10/21/2012 06/06/2021 Irritant dermatitis: eyelids 09/07/2011 02/06/2016 Acne Vulgaris: Grade III to IV inflammatory: face--Nodulocystic//Scarring 03/28/2010 02/06/2016 Lymphadenopathy 06/15/2009 09/20/2013 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, lumbar region 07/05/2008 09/20/2013 Symptomatic menopausal or fe male climacteric states 03/06/2008 02/06/2016 Umbilical hernia without men tion of obstruction or gangrene 06/10/2006 09/20/2013 Underweight 10/13/2005 02/06/2016 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 08/19/2005 07/10/20 14 NEURALGIA 07/31/2005 09/20/2013 Other syndromes affecting cervical region 02/28/2004 02/06/2016 Headache(784.0) 02/28/2004 09/20/2013 documented as of this encounter (statuses as of 06/07/2023) [facility] History of Past illness Narrative* Problem Noted Date Diagnosed Date Resolved Date Abdominal pain 12/11/2016 06/06/2021 Breast pain, right 12/12/2015 6 Disruption of external surgical wound 09/26/2015 02/06/2016 Crush injury of right foot 03/13/2014 1 Open wound of axillary region 03/24/2013 09/20/2013 Abscess of anal and rectal regions 01/06/2013 09/20/2013 Perioral dermatitis 11/10/2012 02/06/20 16 Diarrhea 10/21/2012 06/06/2021 Irritant dermatitis: eyelids 09/07/2011 02/06/2016 Acne Vulgaris: Grade III to IV inflammatory: face--Nodulocystic//Scarring 03/28/2010 02/06/2016 Lymphadenopathy 06/15/2009 09/20/2013 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, lumbar region 07/05/2008 09/20/2013 Symptomatic menopausal or fe male climacteric states 03/06/2008 02/06/2016 Umbilical hernia without men tion of obstruction or gangrene 06/10/2006 09/20/2013 Underweight 10/13/2005 02/06/2016 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 08/19/2005 07/10/20 14 NEURALGIA 07/31/2005 09/20/2013 Other syndromes affecting cervical region 02/28/2004 02/06/2016 Headache(784.0) 02/28/2004 09/20/2013 documented as of this encounter (statuses as of 07/14/2023) [facility] History of Past illness Narrative* Problem Noted Date Diagnosed Date Resolved Date Abdominal pain 12/11/2016 06/06/2021 Breast pain, right 12/12/2015 6 Disruption of external surgical wound 09/26/2015 02/06/2016 Crush injury of right foot 03/13/2014 1 Open wound of axillary region 03/24/2013 09/20/2013 Abscess of anal and rectal regions 01/06/2013 09/20/2013 Perioral dermatitis 11/10/2012 02/06/20 16 Diarrhea 10/21/2012 06/06/2021 Irritant dermatitis: eyelids 09/07/2011 02/06/2016 Acne Vulgaris: Grade III to IV inflammatory: face--Nodulocystic//Scarring 03/28/2010 02/06/2016 Lymphadenopathy 06/15/2009 09/20/2013 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, lumbar region 07/05/2008 09/20/2013 Symptomatic menopausal or fe male climacteric states 03/06/2008 02/06/2016 Umbilical hernia without men tion of obstruction or gangrene 06/10/2006 09/20/2013 Underweight 10/13/2005 02/06/2016 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 08/19/2005 07/10/20 14 NEURALGIA 07/31/2005 09/20/2013 Other syndromes affecting cervical region 02/28/2004 02/06/2016 Headache(784.0) 02/28/2004 09/20/2013 documented as of this encounter (statuses as of 07/18/2023) [facility] Diagnosis Anxiety- Primary Anxiety state, unspecified [facility] Diagnosis Sprain of ligament of left ankle, initial encounter- Primary [facility] this [facility]* Diagnosis Viral illness- Primary Unspecified viral infection, in conditions classified elsewhere and of unspecified site Pharyngitis, unspecified etiology Suspected COVID-19 virus infection Fatigue, unspecified type Impaired fasting glucose Encounter for lipid screening for cardiovascular disease Screening for lipoid disorders documented [facility] this [facility]* Diagnosis Well adult exam- Primary Routine general medical examination at a health care facility Impaired fasting glucose Sebopsoriasis Contact dermatitis and other eczema, due to unspecified cause Former smoker Personal history of tobacco use, presenting hazards to health Restless leg syndrome Restless legs syndrome (RLS) Anxiety Anxiety state, unspecified Abnormal thyroid blood test Nonspecific abnormal results of thyroid function study Elevated platelet count Essential thrombocythemia Elevated LFTs Other abnormal blood chemistry Bloating Flatulence, eructation, and gas pain Diarrhea, unspecified type Rib pain on right side Chest pain, unspecified [facility] Diagnosis Elevated LFTs- Primary Other abnormal blood chemistry Elevated platelet count Essential thrombocythemia [facility] Diagnosis Encounter for screening mammogram for breast cancer [facility] Diagnosis Encounter for gynecological examination (general) (routine) without abnormal findings- Primary Encounter for screening mammogram for breast cancer Symptomatic premature menopause Premature menopause [facility] Diagnosis Herpes zoster without complication- Primary Herpes zoster without mention of complication [facility] Diagnosis Elevated LFTs Other abnormal blood chemistry [facility]* Diagnosis Agitation- Primary Other and unspecified special symptom or syndrome, not elsewhere classified Anxiety Anxiety state, unspecified documented in this encounter [facility] for referral (narrative)* Diagnostic Procedure Only (Routine) - Closed Specialty Diagnoses / Procedures Referred By Aron t Referred To Contact XR IMAGING Diagnoses Rib pain on right side Procedures XR RIBS/CHEST 3V AP RIB/OBLS/CXR RIGHT RADEX RIBS UNI W/POSTEROANT CH MINIMUM 3 VIEWS Kristy Bates PA-C [address] [place] [address] Xr Imaging Referral ID Status Reason Start Date Expiration Date V isits Requested Visits Authorized [id number] Closed Auto-Generate d Referral 11/06/2022 12/06/2023 1 1 * Consult, Test, Treat (Routine) - Authorized Specialty Diagnoses / Procedures Referred By Aron t Referred To Contact Gastroenterology Diagnoses Bloating Diarrhea, unspecified type Procedures CONSULT TO GASTROENTEROLOGY OFFICE/OUTPATIENT [facility] 60-74 MINUTES Kristy Bates PA-C [address] [place] [address] Referral ID Status Reason Start Date Expiration Date Visits Requested Visits Authorized [id number] Authorized PCP Requested Referral 11/06/2022 11/06/2023 1 1 [facility] for referral (narrative)* Diagnostic Procedure Only (Routine) - Authorized Specialty Diagnoses / Procedures Referred By Aron morin Referred To Contact US IMAGING Diagnoses Elevated LFTs Procedures US ABD RIGHT UPPER QUADRANT US ABDOMINAL REAL TIME W/IMAGE LIMITED Kristy Bates PA-C [address] [place] [address] Us Imaging Referral ID Status Reason Start Date Expiration Date Visits Requested Visits Authorized [id number] Authorized Auto-Generat ed Referral 11/07/2022 12/07/2023 1 1 [facility] for referral (narrative)* Diagnostic Procedure Only (Routine) - Pending Review Specialty Diagnoses / Procedures Referred By Aron t Referred To Contact BR IMAGING Diagnoses Encounter for screening mammogram for breast cancer Procedures PATTI SCREENING SCREENING MAMMOGRAPHY BI 2-VIEW BREAST INC CAD Davida Hollis MD [address] [place] [address] [facility] [address] [place] [address] Referral ID Status Reason Start Date Expiration Date Visits Requested Visits Authorized [id number] Pending Review Auto-Generat ed Referral 11/19/2022 12/19/2023 1 1 [facility] Diagnostic Procedure Only (Routine) - Closed Specialty Diagnoses / Procedures Referred By Contac t Referred To Contact US IMAGING Diagnoses Elevated LFTs Procedures US ABD RIGHT UPPER QUADRANT US ABDOMINAL REAL TIME W/IMAGE LIMITED Kristy Bates PA-C [address] [place] [address] [place] [address] Referral ID Status Reason Start Date Expiration Date V isits Requested Visits Authorized [id number] Closed Auto-Generate d Referral 11/07/2022 12/07/2023 1 1 [facility] Advance Directives No Advanced Directives Records FoundDocuments on File Type Date Recorded 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 Advance Directive(s) 06/06/2021 9:56 AM Advance Directive(s) 05/23/2021 3:52 PM Health Concerns Infection Onset Date Last Indicated Resolved Time COVID-19 Confirmed 07/17/2023 07/17/2023 Summary Purpose Family History No Family History Records Found Additional Source Comments Source Comments (unrecognize d section and content) In the event this informatio n is protected by the Federal Confidentiality of Alcohol and Drug Abuse Patient Records regulations: The Federal rules restrict any use of the information to criminally investigate or prosecute any alcohol or drug abuse patient.[facility] the event this information is protected by the Federal Confidentiality of Alcohol and Drug Abuse Patient Records regulations: The Federal rules restrict any use of the information to criminally investigate or prosecute any alcohol or drug abuse patient.[facility] [place]In the event this information is protected by the Federal Confidentiality of Alcohol and Drug Abuse Patient Records regulations: The Federal rules restrict any use of the information to criminally investigate or prosecute any alcohol or drug abuse patient.[facility] [place]In the event this information is protected by the Federal Confidentiality of Alcohol and Drug Abuse Patient Records regulations: The Federal rules restrict any use of the information to criminally investigate or prosecute any alcohol or drug abuse patient.[facility] [place]In the event this information is protected by the Federal Confidentiality of Alcohol and Drug Abuse Patient Records regulations: The Federal rules restrict any use of the information to criminally investigate or prosecute any alcohol or drug abuse patient.Head ClinicIn the event this information is protected by the Federal Confidentiality of Alcohol and Drug Abuse Patient Records regulations: The Federal rules restrict any use of the information to criminally investigate or prosecute any alcohol or drug abuse patient.[facility] [place]In the event this information is protected by the Federal Confidentiality of Alcohol and Drug Abuse Patient Records regulations: The Federal rules restrict any use of the information to criminally investigate or prosecute any alcohol or drug abuse patient.[facility] [place]In the event this information is protected by the Federal Confidentiality of Alcohol and Drug Abuse Patient Records regulations: The Federal rules restrict any use of the information to criminally investigate or prosecute any alcohol or drug abuse patient.[facility] [place]In the event this information is protected by the Federal Confidentiality of Alcohol and Drug Abuse Patient Records regulations: The Federal rules restrict any use of the information to criminally investigate or prosecute any alcohol or drug abuse patient.[facility] [place]In the event this information is protected by the Federal Confidentiality of Alcohol and Drug Abuse Patient Records regulations: The Federal rules restrict any use of the information to criminally investigate or prosecute any alcohol or drug abuse patient.[facility] [place]In the event this information is protected by the Federal Confidentiality of Alcohol and Drug Abuse Patient Records regulations: The Federal rules restrict any use of the information to criminally investigate or prosecute any alcohol or drug abuse patient.[facility] [place]In the event this information is protected by the Federal Confidentiality of Alcohol and Drug Abuse Patient Records regulations: The Federal rules restrict any use of the information to criminally investigate or prosecute any alcohol or drug abuse patient.[facility] OhioIn the event this information is protected by the Federal Confidentiality of Alcohol and Drug Abuse Patient Records regulations: The Federal rules restrict any use of the information to criminally investigate or prosecute any alcohol or drug abuse patient.[facility] [place]In the event this information is protected by the Federal Confidentiality of Alcohol and Drug Abuse Patient Records regulations: The Federal rules restrict any use of the information to criminally investigate or prosecute any alcohol or drug abuse patient.[facility] [place]In the event this information is protected by the Federal Confidentiality of Alcohol and Drug Abuse Patient Records regulations: The Federal rules restrict any use of the information to criminally investigate or prosecute any alcohol or drug abuse patient.[facility] [place]In the event this information is protected by the Federal Confidentiality of Alcohol and Drug Abuse Patient Records regulations: The Federal rules restrict any use of the information to criminally investigate or prosecute any alcohol or drug abuse patient.[facility] [place]In the event this information is protected by the Federal Confidentiality of Alcohol and Drug Abuse Patient Records regulations: The Federal rules restrict any use of the information to criminally investigate or prosecute any alcohol or drug abuse patient.[facility] OhioIn the event this information is protected by the Federal Confidentiality of Alcohol and Drug Abuse Patient Records regulations: The Federal rules restrict any use of the information to criminally investigate or prosecute any alcohol or drug abuse patient.[facility] [place]In the event this information is protected by the Federal Confidentiality of Alcohol and Drug Abuse Patient Records regulations: The Federal rules restrict any use of the information to criminally investigate or prosecute any alcohol or drug abuse patient.[facility] OhioIn the event this information is protected by the Federal Confidentiality of Alcohol and Drug Abuse Patient Records regulations: The Federal rules restrict any use of the information to criminally investigate or prosecute any alcohol or drug abuse patient.[facility] [place]In the event this information is protected by the Federal Confidentiality of Alcohol and Drug Abuse Patient Records regulations: The Federal rules restrict any use of the information to criminally investigate or prosecute any alcohol or drug abuse patient.[facility] [place]In the event this information is protected by the Federal Confidentiality of Alcohol and Drug Abuse Patient Records regulations: The Federal rules restrict any use of the information to criminally investigate or prosecute any alcohol or drug abuse patient.[facility] [place] Reason for Visit (unrecogniz ed section and content) Reason Comments Follow Up anxiety Reason Comments Er Discharge Summary Reason Onset Date Comments Refill Request 07/23/2022 Reason Comments Ankle Pain LT x 6 days Reason Comments Results Reason Comments Sore Throat Reason Comments Insurance Authorization Prozac Reason Comments Yearly Exam Reason Comments Results Reason Comments Medication Request Reason Comments Yearly Exam Reason Comments Refill Request Reason Comments Swelling Face swollen , painf ul x 3 days Reason Comments Refill Request Please send this RX today, patient is completely out for three days Reason Comments Radiology US Specialty Diagnoses / Procedures Referred By Contac t Referred To Contact US IMAGING Diagnoses Elevated LFTs Procedures US ABD RIGHT UPPER QUADRANT US ABDOMINAL REAL TIME W/IMAGE LIMITED Kristy Bates PA-C [address] [place] [address] [place] [address] Referral ID Status Reason Start Date Expiration Date V isits Requested Visits Authorized [id number] Closed Auto-Generate d Referral 11/07/2022 12/07/2023 1 1 Reason Comments 6 Month Exam Care Teams (unrecognized sec tion and content) 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 Relationship Specialty Start Date End Date Davida Hollis MD [address] [place], [place] [id number] PCP - General Family Practice 02/07/21 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 Relationship Specialty Start Date End Date Davida Hollis MD [address] [facility] [place] [address] PCP - General Family Practice 02/07/21 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 Relationship Specialty Start Date End Date Davida Hollis MD [facility] [place] [address] PCP - General Family Medicine 02/07/21 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 Relationship Specialty Start Date End Date Davida Hollis MD [address] [place] [address], [place] [address] PCP - General Family Medicine 02/07/21 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 Relationship Specialty Start Date End Date Davida Hollis MD [address] [place] [address], [place] [address] PCP - General Family Medicine 02/07/21 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 Relationship Specialty Start Date End Date Davida Hollis MD [address] [place] [address], [place] [address] PCP - General Family Medicine 02/07/21 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 Relationship Specialty Start Date End Date Davida Hollis MD [address] [place] [address], [place] [address] PCP - General Family Medicine 02/07/21 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 Relationship Specialty Start Date End Date Davida Hollis MD [facility] [place] [address] PCP - General Family Medicine 02/07/21 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 Relationship Specialty Start Date End Date Davida Hollis MD [address] [place] [address], [place] [address] PCP - General Family Medicine 02/07/21 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 Relationship Specialty Start Date End Date Davida Hollis MD [address] [place] [address], [place] [address] PCP - General Family Medicine 02/07/21 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 Relationship Specialty Start Date End Date Davida Hollis MD [address] [place] [address] PCP - General Family Medicine 02/07/21 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 Relationship Specialty Start Date End Date Davida Hollis MD [address] [place] [address] PCP - General Family Medicine 02/07/21 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 Relationship Specialty Start Date End Date Davida Hollis MD [address] [place] [address] PCP - General Family Medicine 02/07/21 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 Relationship Specialty Start Date End Date Davida Hollis MD [address] [place] [address] PCP - General Family Medicine 02/07/21 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 Relationship Specialty Start Date End Date Davida Hollis MD [address] [place] [address] PCP - General Family Medicine 02/07/21 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 Relationship Specialty Start Date End Date Davida Hollis MD [address] [place] [address] PCP - General Family Medicine 02/07/21 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 Relationship Specialty Start Date End Date Davida Hollis MD [address] [place] [address] PCP - General Family Medicine 02/07/21 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 Relationship Specialty Start Date End Date Davida Hollis MD [address] [place] [address] PCP - General Family Medicine 02/07/21 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 Relationship Specialty Start Date End Date Davida Hollis MD [address] [place] [address] PCP - General [facility] 02/07/21 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 Relationship Specialty Start Date End Date Davida Hollis MD [address] [place] [address] PCP - General Family [facility] 02/07/21 INFORMATION SOURCE (unrecogn ized section and content) FOR RECORDS PERTAINING TO PATIENTS WHO ARE OR HAVE BEEN ENROLLED IN A CHEMICAL DEPENDENCY/SUBSTANCEABUSE PROGRAM, SOME INFORMATION MAY BE OMITTED. This clinical summary was aggregated from multiple sources. Caution should be exercised in using it in the provision of clinical care. This summary normalizes information from multiple sources, and as a consequence, information in this document may materially change the coding, format and clinical context of patient data. In addition, data may be omitted in some cases. CLINICAL DECISIONS SHOULD BE BASED ON THE PRIMARY CLINICAL RECORDS. [employer] [facility]. provides no warranty or guarantee of the accuracy or completeness of information in this document.
== END | disposition home or self-care (01) ==
PROVIDERS: PCP Family Medicine; Referring Provider Physician Assistant Surgical; Visit Provider Physician Assistant Surgical
DX: S62.366D Nondisplaced fracture of neck of fifth metacarpal bone, right hand, subsequent encounter for fracture with routine healing (principal); X58.XXXD Exposure to other specified factors, subsequent encounter; R20.2 Paresthesia of skin
CPT/HCPCS: 95886; 95909

== ENCOUNTER → 2024-08-04 | Outpatient (CLI) | payer BC, SELFPAY ==
[2024-08-04 13:29] LABS: Cholesterol 238 mg/dL (200); Glucose 117 mg/dL (74-106); High Density Lipoprotein 82 mg/dL; Triglycerides 181 mg/dL; Very Low Density Lipoprotein 36 mg/dL (5-40)
[2024-08-04 14:39] LABS: Vitamin D,25 Hydroxy 13.3 ng/mL
== END | disposition home or self-care (01) ==
LOC: LAB 12:38
PROVIDERS: PCP Family Medicine; Referring Provider Obstetrics & Gynecology; Visit Provider Obstetrics & Gynecology
DX: Z13.1 Encounter for screening for diabetes mellitus (principal); Z13.220 Encounter for screening for lipoid disorders; Z13.21 Encounter for screening for nutritional disorder; Z13.29 Encounter for screening for other suspected endocrine disorder
CPT/HCPCS: 36415; 80061; 82306; 82947; 84443

== ENCOUNTER → 2024-11-07 | Outpatient (CLI) | payer BC, SELFPAY ==
--- NOTE | 2024-11-07 10:34 | ECHOD_ITS ---
Reason For Study Reason For Study: AMAUROSIS FUGAX Procedure This was a 2D Doppler, Color Flow transthoracic echocardiogram. Exam performed in department. Left Ventricle Normal LV size. Left ventricular systolic function is normal. The left ventricular ejection fraction is 60 %. No regional wall motion abnormalities noted. Right Ventricle Normal RV size. Normal systolic function. Atria Normal left atrium. Normal right atrium. Bubble contrast study is negative for PFO/ASD. Mitral Valve Normal mitral valve. Tricuspid Valve Normal tricuspid valve. Aortic Valve Trisinus/trileaflet aortic valve. Pulmonic Valve Normal pulmonic valve. Great Vessels Normal aortic root. The pulmonary artery is normal size. Inferior vena cava collapse with respiration. Pericardium/Pleural No pericardial effusion. Medication 22 gauge I.V. with prn adaptor inserted into right arm. Performed a rapid injection of agitated mix of 9 cc saline and 1cc air to assess for atrial septal defect. MMode/2D Measurements & Calculations LVIDd: 4.5 cm IVSd: 0.86 cm Ao root diam: 2.9 cm LVIDs: 3.5 cm LVPWd: 0.78 cm RVDd: 2.8 cm FS: 23.3 % LAV(MOD-bp): 26.5 ml LVAd ap4: 25.5 cm2 SV(MOD-sp4): 39.2 ml LAV(MOD-bp) Indexed: 17.3 ml/m2 LVLd ap4: 8.0 cm SI(MOD-sp4): 25.7 ml/m2 LAV(MOD-sp2): 30.6 ml EDV(MOD-sp4): 71.0 ml LAV(MOD-sp4): 22.7 ml EDV(sp4-el): 69.1 ml LVAs ap4: 15.6 cm2 LVLs ap4: 7.0 cm ESV(MOD-sp4): 31.7 ml ESV(sp4-el): 29.4 ml EF(MOD-sp4): 55.3 % EF(sp4-el): 57.5 % SV(sp4-el): 39.7 ml LA A4 area: 11.3 cm2 LA dimension(2D): 2.9 cm RA A4 area: 11.1 cm2 Time Measurements MV dec time: 0.22 sec Doppler Measurements & Calculations MV E max pato: 61.2 cm/sec Lat Peak E' Pato: 13.8 cm/sec Med Peak E' Pato: 8.8 cm/sec MV A max pato: 70.8 cm/sec E/E' lat: 4.4 E/E' med: 6.9 MV E/A: 0.87 MV V2 max: 73.2 cm/sec MV dec slope: 283.3 cm/sec2 Ao V2 max: 109.6 cm/sec MV max P.1 mmHg Ao max P.8 mmHg MV V2 mean: 48.9 cm/sec Ao V2 mean: 79.7 cm/sec MV mean P.0 mmHg Ao mean P.8 mmHg MV V2 VTI: 22.2 cm Ao V2 VTI: 22.1 cm AV (velocity ratio): 0.93 LV V1 max: 100.6 cm/sec PA V2 max: 77.3 cm/sec LV V1 max P.0 mmHg PA V2 mean: 55.9 cm/sec LV V1 mean P.2 mmHg LV V1 mean: 70.1 cm/sec LV V1 VTI: 20.6 cm ECHO/Echo Complete Interpretation Summary Normal LV size. Left ventricular systolic function is normal. Bubble contrast study is negative for PFO/ASD. The left ventricular ejection fraction is 60 %. No regional wall motion abnormalities noted. Ordering Physician: Damien Anderson Referring Physician: Damien Anderson Performed By: Violet Barnett RCS
== END | disposition home or self-care (01) ==
LOC: CVS 10:33
PROVIDERS: PCP Family Medicine; Referring Provider Ophthalmology; Visit Provider Ophthalmology
DX: G45.3 Amaurosis fugax (principal)
CPT/HCPCS: 93306; A4216

== ENCOUNTER 2024-12-21 17:51 | Emergency (ER) | payer BC, SELFPAY ==
[2024-12-21 17:51] VITALS: BP 179/100; PULSE 122; RESP 18; TEMP 36; O2SAT 99
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
--- NOTE | 2024-12-21 18:54 | EX.ED.GENINJ ---
HPI History of Present Illness Chief Complaint: Chest Other Informant: patient Narrative Narrative: Presents by private vehicle evaluation of left rib injury few days ago. States bending over towards her dog when the dog jumped into her. Pain since then using Tylenol and Advil last dose 4 hours ago. Allergy to tramadol has tolerated Vicodin. She has had rib fractures in the past. No other injuries. Reports pain worse with deep breaths due to pain. Prior similar symptoms: Yes PFSH PFSH Medical History Elevated LFTs Other psoriasis Elevated platelet count RLS (restless legs syndrome) Incisional hernia Impaired fasting glucose Depression Bipolar 1 disorder GERD (gastroesophageal reflux disease) Anxiety Agoraphobia Diarrhea Bloating Home Medications ?Medication ?Instructions ?Recorded ?Last Taken ?Type estradiol 0.1 mg/24 hr weekly 1 patch transdermal QWEEK #4 ea 08/04/24 Unknown Rx transdermal patch estradiol 10 mcg vaginal insert 10 mcg vaginal 2XW #8 inserts 08/04/24 Unknown Rx (Imvexxy Maintenance Pack) fluoxetine 40 mg capsule (Prozac) 40 mg PO QAM 08/04/24 Unknown History gabapentin 300 mg capsule 300 mg PO QHS #90 caps 08/04/24 Unknown Rx estradiol 1 mg tablet 2 mg (2 x 1 mg) PO DAILY 90 days 12/06/24 Unknown Rx #180 tabs Allergy/AdvReac Type Severity Reaction Status Date / Time sertraline (From Zoloft) Allergy Intermediate Other Verified 12/21/24 17:51 ketorolac tromethamine (From Allergy Hives Verified 12/21/24 17:51 Toradol) tramadol HCl (From Ultram) Allergy Hives Verified 12/21/24 17:51 naproxen AdvReac Vomiting Verified 12/21/24 17:51 Family History Father Diabetes Surgical History S/P carpal tunnel release Armpit pain History of total hysterectomy Hx of cholecystectomy H/O umbilical hernia repair Social History household members: family Smoking Status: Former smoker quit date: 09/03/21 alcohol intake: current substance use type: does not use caffeine: Yes additional social history: - Joseluis FOX ROS ED Constitutional Constitutional ED: Denies fever(s) Cardiovascular Cardiovascular: Denies chest pain Respiratory/Chest Respiratory/Chest: Denies cough Gastrointestinal Gastrointestinal: Denies diarrhea or vomiting Musculoskeletal Musculoskeletal: Reports none and other Details: Left lower rib pain. Integumentary Denies rash or wounds Neurologic Neurologic: Denies weakness EXAM Physical Exam Const Vital Signs: 12/21/24 17:51 12/21/24 17:51 12/21/24 19:51 Temperature 96.8 F L Temperature Source Temporal Pulse Rate 122 H 77 Respiratory Rate 18 16 Respiratory Effort Normal Non-Labored Blood Pressure 179/100 H 133/95 H Blood Pressure Mean 126 107 Pulse Ox 99 99 Oxygen Delivery Method Room Air Room Air 12/21/24 21:00 Temperature Temperature Source Pulse Rate 78 Respiratory Rate 16 Respiratory Effort Blood Pressure 138/80 H Blood Pressure Mean 99 Pulse Ox 97 Oxygen Delivery Method Room Air Positive well nourished and well developed Constitutional Narrative: Tearful nontoxic. General Appearance ED: well developed HEENT normocephalic and atraumatic Eyes General Eye ED: Yes normal appearance of both eyes Neck full ROM Chest Wall Chest Narrative: Tender palpation left lower anterior ribs. No crepitus no ecchymosis. Resp normal respiratory effort and normal air movement Resp Narrative: Symmetric breath sounds. Cardio regular rhythm Rate: tachycardic GI soft to palpation Extremity normal to inspection and full ROM Neuro oriented x3 Skin no rashes or lesions noted and no wounds MDM MDM MDM Narrative Medical decision making narrative: Interventions / MDM: Differential diagnosis: Rib contusion Diagnosis considered but do not suspect: Fracture/pneumothorax however images negative. My EKG interpretation: N/A Imaging independently reviewed and interpreted by myself: 3 view left ribs with PA chest: No fractures no pneumothorax External documents reviewed: N/A Test considered but not ordered:N/A ED course: Tearful tender on exam. Advil Tylenol for history not helping. She tolerated [place]. This was ordered. Rib series x-ray for further evaluation. X-ray negative reevaluation clinically feeling better heart rate improved. Sister was present. There is concerns of safety with patient home with her . Social work did evaluate the patient. However patient reported she was okay. She is going with her sister. At that time I was called out of the room for patient care. On return the room, patient had left the department with her sister. Re-evaluation: stable Disposition discussed with patient/family/significant other: Patient and sister Case discussed with consulting clinician: N/A This note was generated with [employer] dictation software. It may contain incorrect words, spelling, and punctuation that were not noted in checking the note before signing. Radiography Diagnostic Testing: Clinical Impression(s) from Imaging Studies Ribs w/Chest X-Ray 12/21/24 19:00 IMPRESSION: No acute rib fracture visualized. Reading Location: [place] [address] Discharge Plan Triage Chief Complaint: Chest Other ED Provider: Lopez Henry Dx/Rx/DC Orders Prescriptions: No Action fluoxetine [Prozac] 40 mg capsule 40 mg PO QAM Imvexxy Maintenance Pack 10 mcg insert 10 mcg vaginal 2XW Qty: 8 12RF gabapentin 300 mg capsule 300 mg PO QHS Qty: 90 4RF estradiol 0.1 mg/24 hr patch weekly 1 patch transdermal QWEEK Qty: 4 12RF estradiol 1 mg tablet 2 mg PO DAILY 90 Days Qty: 180 3RF Primary Care Provider: Pancho Martell Referrals: Pancho Martell MD [Primary Care Provider] - Print Language: Spanish Disposition Disposition: Home, Self Care Discharge Date/Time: 12/21/24 21:10
--- NOTE | 2024-12-21 19:00 | RAD_ITS ---
PROCEDURE: RIBS UNI MIN 3V W/PA CHEST 12/21/2024 REASON FOR EXAM: INJURY TECHNIQUE: Frontal and bilateral oblique views of the bilateral ribs. COMPARISON: None. FINDINGS: Findings: The lungs are clear. The heart is normal in size. No acute osseous abnormalities or evidence of rib fracture. RAD/Ribs Uni Min 3V w/PA Chest IMPRESSION: No acute rib fracture visualized. Reading Location: [place] [address]
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
[2024-12-21] MEDS: HYDROcodone Bitartrate/Apap 5/325 Tablet PO (19:20)
[2024-12-21 19:51] VITALS: BP 133/95; PULSE 77; RESP 16; O2SAT 99
[2024-12-21 21:00] VITALS: BP 138/80; PULSE 78; RESP 16; O2SAT 97
== END 2024-12-21 21:10 | disposition home or self-care (01) ==
PROVIDERS: Emergency Provider Emergency Medicine; PCP Family Medicine; Visit Provider Emergency Medicine
DX: R07.89 Other chest pain (principal); Z87.891 Personal history of nicotine dependence
CPT/HCPCS: 71101; 99282